=== PATIENT | male | born 1935 | race Caucasian/White ===

== ENCOUNTER 2017-12-03 14:03 | Emergency (ER) | payer MEDICARE ==
[~2017-12-03] VITALS: Ht 175.3 cm; Wt 81.6 kg
[~2017-12-03 14:03] MED LIST: CENTRUM COMPLE1 EACH PO; CRESTOR10 MG PO; FLAGYL250 MG PO; LANSOPRAZOLE30 MG; LEVAQUIN500 MG PO; LORTAB ELIXIR473 ML; MELOXICAM7.5 MG PO; METRONIDAZOLE500 MG PO; NEXIUM40 MG PO; PRESERVISION T1 EACH; TRIAMTERENE-HCTZ1 EA PO; ZITHROMAX500 MG PO
== END 2017-12-03 18:45 | disposition home or self-care (01) ==
LOC: ER 14:03
DX: L03.116 Cellulitis of left lower limb (principal); I10 Essential (primary) hypertension; I50.9 Heart failure, unspecified; K21.9 Gastro-esophageal reflux disease without esophagitis; Z87.19 Personal history of other diseases of the digestive system
CPT/HCPCS: 99282

== ENCOUNTER 2018-03-08 06:35 | Emergency (ER) | payer MEDICARE ==
[~2018-03-08] VITALS: Ht 175.3 cm; Wt 81.6 kg
[2018-03-08] MEDS ORDERED: PREDNISONE10 MG PO (07:22)
[2018-03-08] MEDS ORDERED: LEFLUNOMIDE10 MG PO (07:22)
[2018-03-08] MEDS ORDERED: MYRBETRIQ50 MG PO (07:22)
[2018-03-08] MEDS ORDERED: ZYRTEC10 M3 PO (07:22)
[2018-03-08] MEDS ORDERED: CELEBREX100 MG PO (07:22)
[2018-03-08] MEDS ORDERED: PANTOPRAZOLE SO40 MG PO (07:22)
[2018-03-08] MEDS ORDERED: ASPIR 8181 MG PO (07:22)
[2018-03-08] MEDS ORDERED: DEXAMETHASONE SOD PHOS 10 MG/1 ML VIAL IV ONE (07:30)
[2018-03-08 08:31] LABS: HEMATOCRIT 44.1 % (38.2-49.6); HEMOGLOBIN 14.8 g/dL (14.0-18.0); MEAN CORPUSCULAR HEMOGLOBIN 30.2 pg (28-32); MEAN CORPUSCULAR HGB CONC 33.6 g/dL (31-35); PLATELET COUNT 109 x10e3/uL (140-360); RED CELL DISTRIBUTION WIDTH 14.7 % (11.7-14.4)
[2018-03-08 08:52] LABS: ALANINE AMINOTRANSFERASE 81 IU/L (0-55); ALBUMIN 2.9 g/dL (3.5-5.0); ALBUMIN/GLOBULIN RATIO 1.1 (0.8-2.0); ALKALINE PHOSPHATASE 86 IU/L (40-150); ANION GAP 11.7 mmol/L (8-16); BLOOD UREA NITROGEN 20 mg/dL (7-26); BUN/CREATININE RATIO 25 (6-25); CALCIUM 8.4 mg/dL (8.4-10.2); CARBON DIOXIDE 24 mmol/L (22-29); CHLORIDE 107 mmol/L (98-107); CREATININE, SERUM 0.79 mg/dL (0.72-1.25); EST GLOMERULAR FILTRATION RATE > 60 ML/MIN (60-); GLUCOSE 83 mg/dL (74-118); PHOSPHORUS 2.7 MG/DL (2.3-4.7); POTASSIUM 3.7 mmol/L (3.5-5.1); SODIUM 139 mmol/L (136-145)
[2018-03-08 09:00] LABS: MAGNESIUM 1.6 MG/DL (1.3-2.1)
[2018-03-08 09:19] LABS: THYROID STIMULATING HORMONE 1.099 uIU/mL (0.350-4.940)
[2018-03-08 09:39] LABS: BILIRUBIN,URINE NEGATIVE (NEGATIVE); CLARITY,URINE CLEAR (CLEAR); COLOR,URINE YELLOW (YELLOW); EPITHELIAL CELLS,URINE FEW /LPF; KETONES,URINE NEGATIVE (NEGATIVE); LEUKOCYTE ESTERASE ,URINE NEGATIVE (NEGATIVE); MUCUS,URINE RARE (RARE); NITRITE,URINE NEGATIVE (NEGATIVE); PROTEIN,URINE DIPSTICK NEGATIVE (NEGATIVE); URINE UROBILINOGEN 0.2 mg/dL (0.2 - 1)
[2018-03-08 11:33] LABS: ANISOCYTOSIS SLIGHT; BAND NEUTROPHILS % (MANUAL) 1 %; EOSINOPHILS % (MANUAL) 3 % (0-7); LYMPHOCYTES % (MANUAL) 7 % (19-48); MONOCYTES % (MANUAL) 4 % (3.4-9.0); NEUTROPHILS % (MANUAL) 81 % (40-74); PLATELET ESTIMATE SLIGHTLY DECREASED; RBC MORPHOLOGY COMMENT NORMAL
[2018-03-08 11:34] LABS: PLATELET MORPHOLOGY COMMENT NORMAL
[2018-03-08 11:42] VITALS: BP 142/69
== END 2018-03-08 11:20 | disposition home or self-care (01) ==
LOC: ER 06:35
DX: M54.5 Low back pain (principal); I49.1 Atrial premature depolarization; I49.3 Ventricular premature depolarization; I44.4 Left anterior fascicular block; Z79.82 Long term (current) use of aspirin; Z79.52 Long term (current) use of systemic steroids; M48.061 Spinal stenosis, lumbar region without neurogenic claudication
CPT/HCPCS: 36415; 80053; 81001; 83735; 84100; 84443; 85007; 85027; 93005; 99284; J1100

== ENCOUNTER 2018-05-21 05:20 | Inpatient (IN) | payer MEDICARE ==
[2018-05-21] VITALS (7 sets, daily range): BP systolic 121–154; BP diastolic 60–88
[~2018-05-21] VITALS: Ht 175.3 cm; Wt 88.1 kg
[~2018-05-21 05:20] MED LIST changes: +ASPIR 8181 MG PO; +CELEBREX100 MG PO; +LEFLUNOMIDE10 MG PO; +MYRBETRIQ50 MG PO; +PANTOPRAZOLE SO40 MG PO; +PREDNISONE10 MG PO; +ZYRTEC10 M3 PO
[2018-05-21] MEDS ORDERED: PANTOPRAZOLE 40 MG 10ML VIAL IV STA (06:07)
[2018-05-21] MEDS ORDERED: MORPHINE SULFATE 2 MG/ML SYR IV STA (06:07)
[2018-05-21] MEDS ORDERED: ONDANSETRON HCL INJ 2 MG/ML VIAL IV STA (06:07)
[2018-05-21 06:35] LABS: BASOPHILS % 0.1 % (0.0-1.0); EOSINOPHILS # (AUTO) 0.1 (0.0-0.4); EOSINOPHILS % 0.4 % (0.0-6.0); HEMATOCRIT 47.2 % (38.2-49.6); HEMOGLOBIN 15.9 g/dL (14.0-18.0); LYMPHOCYTES # (AUTO) 1.2 (1.0-3.2); LYMPHOCYTES % 7.1 % (18.0-39.1); MEAN CORPUSCULAR HEMOGLOBIN 31.2 pg (28-32); MEAN CORPUSCULAR HGB CONC 33.7 g/dL (31-35); MEAN CORPUSCULAR VOLUME 92.5 fL (81-99); MONOCYTES # (AUTO) 0.7 (0.2-0.8); MONOCYTES % 4.3 % (4.4-11.3); NEUTROPHILS # (AUTO) 14.5 (2.1-6.9); NEUTROPHILS % 87.3 % (38.7-80.0); PLATELET COUNT 106 x10e3/uL (140-360); RED CELL DISTRIBUTION WIDTH 15.8 % (11.7-14.4)
[2018-05-21 06:40] LABS: BILIRUBIN,URINE NEGATIVE (NEGATIVE); CLARITY,URINE CLEAR (CLEAR); COLOR,URINE YELLOW (YELLOW); KETONES,URINE NEGATIVE (NEGATIVE); LEUKOCYTE ESTERASE ,URINE NEGATIVE (NEGATIVE); NITRITE,URINE NEGATIVE (NEGATIVE); PROTEIN,URINE DIPSTICK TRACE (NEGATIVE); URINE UROBILINOGEN 1 mg/dL (0.2 - 1)
[2018-05-21 06:42] LABS: INR 1.06
[2018-05-21 06:43] LABS: PARTIAL THROMBOPLASTIN TIME 26.4 seconds (23.8-35.5)
[2018-05-21 06:52] LABS: ALANINE AMINOTRANSFERASE 42 IU/L (0-55); ALKALINE PHOSPHATASE 52 IU/L (40-150); ANION GAP 9.6 mmol/L (8-16); BLOOD UREA NITROGEN 23 mg/dL (7-26); BUN/CREATININE RATIO 26 (6-25); CALCIUM 8.6 mg/dL (8.4-10.2); CARBON DIOXIDE 27 mmol/L (22-29); CHLORIDE 104 mmol/L (98-107); CREATINE KINASE 93 IU/L (30-200); EST GLOMERULAR FILTRATION RATE > 60 ML/MIN (60-); GLUCOSE 83 mg/dL (74-118); MAGNESIUM 1.9 MG/DL (1.3-2.1); POTASSIUM 3.6 mmol/L (3.5-5.1); SODIUM 137 mmol/L (136-145)
[2018-05-21 07:02] LABS: BACTERIA,URINE FEW /HPF; EPITHELIAL CELLS,URINE FEW /LPF; MUCUS,URINE FEW (RARE); RBC,URINE 0-5 /HPF (0-5); WBC,URINE (MAN) 0-5 /HPF (0-5)
[2018-05-21 07:06] LABS: THYROID STIMULATING HORMONE 1.172 uIU/mL (0.350-4.940)
--- NOTE | 2018-05-21 07:17 | Diagnostic Imaging Report ---
EXAM: SP LUMBAR AP LATERAL 2-3VWS DATE: 05/21/2018 6:07 AM INDICATION: \S\WEAKNESS \S\[id number] \S\40 COMPARISON: None FINDINGS: Vertebral heights maintained. Disc space narrowing L1-2, L2-3, L3-4 with vacuum disc phenomena and L2-3 and L3-4. Moderate endplate osteophytes and facet degenerative changes present. Trace retrolisthesis L1 on L2 and L2 on L3, likely degenerative. No distinct fracture. 2. Vascular filters overlying right lower quadrant. IMPRESSION: Advanced degenerative changes spine. Signed by: Dr. Joss Harris MD on 05/21/2018 7:13 AM
--- NOTE | 2018-05-21 07:17 | Diagnostic Imaging Report ---
EXAM: XR CHEST 1 VIEW DATE: 05/21/2018 6:07 AM INDICATION: Weakness COMPARISON: None FINDINGS: Lines and Tubes: None Heart and Mediastinum: Cardia mediastinal silhouette prominent. Lungs and Pleura: Moderate scattered airspace opacities, most notably in the right upper lobe and lung bases. No distinct pneumothorax. Bones and Soft Tissues: No acute findings. IMPRESSION: 1. Moderate scattered airspace opacities could represent multifocal pneumonia or edema with superimposed chronic lung changes possible. Signed by: Dr. Joss Harris MD on 05/21/2018 7:14 AM
[2018-05-21 07:38] LABS: ERYTHROCYTE SEDIMENTATION RATE 2 mm/hr (0-13)
[2018-05-21] MEDS ORDERED: VANCOMYCIN 1GM/NS 250 ML 250 ML IV ONE (08:30)
[2018-05-21] MEDS ORDERED: SODIUM CHLORIDE FLUSH 10 ML SYR INJ PRN (08:30)
[2018-05-21] MEDS ORDERED: ONDANSETRON HCL INJ 2 MG/ML VIAL IV PRN (08:30)
[2018-05-21] MEDS ORDERED: PIPER-TAZ 3.375 GM 50 ML IV ONE (09:00)
--- NOTE | 2018-05-21 09:26 | History and Physical ---
PRIMARY CARE PHYSICIAN: Dr. Eugene. CHIEF COMPLAINT: Leg weakness and right leg rash. HISTORY OF PRESENT ILLNESS: This is an 82-year-old man with a history of osteoarthritis who had a knee replacement, noted to have pain in bilateral lower legs, weakness with right leg redness which prompted his visit to the hospital. The patient states that he had fallen and his right knee was painful. He went to his doctor, treated and pain resolved, and now the pain is back with right leg redness. Denies any fever or chills or sweats. PAST MEDICAL HISTORY: GERD, osteoarthritis, chronic back pain, recurrent diverticulitis status post colonic resection. Fall with hip fracture in October 2017. Spinal stenosis. Sepsis. VRE bacteremia. PAST SURGICAL HISTORY: Partial colonic resection, spinal surgery, bilateral knee replacement, hip fracture, surgical management. ALLERGIES: PER ELECTRONIC MEDICAL RECORDS. FAMILY/SOCIAL HISTORY: The patient is . He has 3 children. No alcohol or illicits. He quit cigarettes in 1984. 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 MEDICATIONS: Per electronic medical records. REVIEW OF SYSTEMS: Denies any dizziness, chest pain. Denies any nausea or vomiting. Denies any headache. Denies any blurry vision. PHYSICAL EXAMINATION VITAL SIGNS: Have been reviewed. GENERAL APPEARANCE: A tired-appearing man resting in the bed. HEENT: Anicteric. Pupils responsive to light. No oral lesions. CARDIOVASCULAR: Normal S1 and S2. Regular rate and rhythm. No murmurs audible. LUNGS: Moderate breath sounds, ABDOMEN: Soft and nontender. Nondistended. EXTREMITIES: His right knee is warm, mildly erythematous. His right foreleg is erythematous, warm, tender, trace edema. Left leg appears normal. SKIN: Dry. PSYCHIATRIC: Normal affect. NEUROLOGIC: Alert and oriented x3. Moving all extremities. ASSESSMENT: An 82-year-old man. 1. Fall. 2. Physical deconditioning. 3. Right leg cellulitis. 4. Possible infection of the right knee. 5. Onychomycosis. 6. Right knee pain. 7. Gastroesophageal reflux disease. 8. Osteoarthritis. 9. Thrombocytopenia. PLAN: 1. Continue IV vancomycin and IV Zosyn. 2. Follow up cultures. 3. Follow up ultrasound of the right leg. 4. Monitor for infection of the right knee. 5. Obtain sed rate and CRP. 6. Avoid anticoagulation. Use SCDs. DISPOSITION: Physical therapy consultation and follow up cultures on the leg. Job#: [id number] SARAH
[2018-05-21] MEDS: TRAMADOL/APAP 37.5MG-325MG TAB PO PRN (11:50)
[2018-05-21] MEDS: VANCOMYCIN 1GM/NS 250 ML 250 ML IV SCH (16:00)
[2018-05-21] MEDS: PREDNISONE 10 MG TAB PO SCH (16:00)
[2018-05-21] MEDS: PIPER-TAZ 3.375 GM 50 ML IV SCH (16:45)
[2018-05-21] MEDS ORDERED: SODIUM CHLORIDE 0.9% 250ML 250 ML ONE (16:50)
--- NOTE | 2018-05-21 16:53 | Cardiology Report ---
DATE OF STUDY: May 21, 2018 DOPPLER SCAN OF THE RIGHT LEG VEINS The right leg veins were intact using the Duplex scanning method. The right leg veins were compressible.. There was no definite deep venous thrombosis. CONCLUSION: 1. No definite deep venous thrombosis seen on the right leg veins. 2. The left leg was not studied. Job#: [id number] GH cc:KAYLA RODARTE MD
[2018-05-21] MEDS ORDERED: MELOXICAM 7.5 MG TAB PO SCH (17:00)
[2018-05-22] VITALS (8 sets, daily range): BP systolic 121–154; BP diastolic 60–69
[2018-05-22] MEDS: PIPER-TAZ 3.375 GM 50 ML IV SCH ×5 (00:06→23:48)
[2018-05-22 07:24] LABS: BASOPHILS % 0.2 % (0.0-1.0); EOSINOPHILS # (AUTO) 0.1 (0.0-0.4); EOSINOPHILS % 0.6 % (0.0-6.0); HEMATOCRIT 42.5 % (38.2-49.6); HEMOGLOBIN 14.4 g/dL (14.0-18.0); LYMPHOCYTES # (AUTO) 0.6 (1.0-3.2); LYMPHOCYTES % 4.9 % (18.0-39.1); MEAN CORPUSCULAR HEMOGLOBIN 31.4 pg (28-32); MEAN CORPUSCULAR HGB CONC 33.9 g/dL (31-35); MEAN CORPUSCULAR VOLUME 92.6 fL (81-99); MONOCYTES # (AUTO) 0.6 (0.2-0.8); MONOCYTES % 4.3 % (4.4-11.3); NEUTROPHILS # (AUTO) 11.7 (2.1-6.9); NEUTROPHILS % 89.1 % (38.7-80.0); PLATELET COUNT 91 x10e3/uL (140-360); RED BLOOD COUNT 4.59 x10e6/uL (4.3-5.7); RED CELL DISTRIBUTION WIDTH 15.9 % (11.7-14.4)
[2018-05-22] MEDS ORDERED: PANTOPRAZOLE SOD 40 MG TABEC PO SCH (07:30)
[2018-05-22 07:49] LABS: ALANINE AMINOTRANSFERASE 32 IU/L (0-55); ALBUMIN 2.5 g/dL (3.5-5.0); ALBUMIN/GLOBULIN RATIO 0.9 (0.8-2.0); ALKALINE PHOSPHATASE 48 IU/L (40-150); ANION GAP 10.4 mmol/L (8-16); BLOOD UREA NITROGEN 20 mg/dL (7-26); BUN/CREATININE RATIO 26 (6-25); CALCIUM 8.3 mg/dL (8.4-10.2); CARBON DIOXIDE 26 mmol/L (22-29); CHLORIDE 106 mmol/L (98-107); CREATININE, SERUM 0.78 mg/dL (0.72-1.25); EST GLOMERULAR FILTRATION RATE > 60 ML/MIN (60-); GLUCOSE 97 mg/dL (74-118); POTASSIUM 4.4 mmol/L (3.5-5.1); SODIUM 138 mmol/L (136-145)
[2018-05-22] MEDS ORDERED: PREDNISONE 10 MG TAB PO SCH (09:00)
[2018-05-22] MEDS: PANTOPRAZOLE SOD 40 MG TABEC PO SCH (09:03)
[2018-05-22] MEDS: FLUTICASONE PROPIONATE NASAL SPRAY NS SCH (09:03)
[2018-05-22] MEDS: LEFLUNOMIDE 10 MG PO SCH (09:04)
[2018-05-22] MEDS: MULTIVITAMINS/MINERALS TAB PO SCH (09:04)
[2018-05-22] MEDS: LORATADINE 10 MG TAB PO SCH (09:04)
[2018-05-22] MEDS: PREDNISONE 10 MG TAB PO SCH (09:04)
[2018-05-22] MEDS: ASPIRIN 81 MG CHEW TAB PO SCH (09:04)
[2018-05-22] MEDS: CELECOXIB 100 MG CAP PO SCH (09:04)
[2018-05-22] MEDS: MIRABEGRON 50 MG PO SCH (09:04)
[2018-05-22] MEDS: VANCOMYCIN 1GM/NS 250 ML 250 ML IV SCH (15:24)
--- NOTE | 2018-05-22 20:35 | Progress Note ---
DATE: May 22, 2018 PROGRESS NOTE TIME: 1915 Overnight, no acute events. REVIEW OF SYSTEMS: Patient denies chest pain or shortness of breath. Denies nausea or vomiting. Denies headache. Denies dizziness or blurry vision. Patient does report some ache to right lower extremity. PHYSICAL EXAMINATION VITAL SIGNS: T 98.8, P 54, respiration 16, BP 125/69, pulse ox 95% on 2 L nasal cannula. GENERAL APPEARANCE: This is a pleasant tired-appearing man, resting supine in bed. HEAD, EYES, EARS, NOSE, THROAT: Normocephalic. PERRLA. noted. No oral lesions. Oral mucosa moist and intact with no sinus tenderness. Nares patent. No JVD. CV: S1 and S2 appreciated with very slight systolic murmur present. Regular rate and rhythm. LUNGS: Bilateral breath sounds clear in all beatty with moderate breath sounds. ABDOMEN: Soft and nontender. Nondistended. No pain to deep or light palpation. EXTREMITIES: Right knee warm, erythematous with positive ballottement. Right chow area is erythematous, warm, tender, trace edema with trace maculopapular lesions times 3 or 4. Left leg within normal limits. Right knee tender to touch. SKIN: Dry. PSYCHIATRIC: Normal affect. NEUROLOGIC: A and O times 3. Moves all extremities and follows commands with gross motor skills intact. ASSESSMENT AND PLAN: This is an 82-year-old man with 1. Fall related to physical deconditioning. Physical therapy consulted. 2. Right leg cellulitis. Continue intravenous vancomycin and Zosyn. 3. Blood cultures are negative. Urine culture with mix jesus and fauna 4. Possible infection of the right knee. 5. Continue to monitor considering positive ballottement. 6. Onychomycosis. 7. Right knee pain. P.r.n. pain management. 8. Gastroesophageal reflux disease. Protonix. 9. Osteoarthritis. Continue with steroid use at this time, Celebrex. 10. Thrombocytopenia. Platelets continued to decline at 91 this day. 11. Prophylaxis. Sequential compression devices and Protonix. 12. Disposition. Physical therapy consultation, and erythrocyte sedimentation rate noted to be decreased in the presence of elevated C-reactive protein with no clot noted on vascular exam. The patient reported escalating shortness of breath 7-8 months prior to this episode of fall and consider heart failure issues in light of elevated B-type natriuretic peptide as possibility. Continue to monitor right knee joint for possible infection. Dictated By: Carlos Bruno NP Job#: [id number] CQ
[2018-05-23] VITALS (8 sets, daily range): BP systolic 131–155; BP diastolic 66–86
[2018-05-23] MEDS: PIPER-TAZ 3.375 GM 50 ML IV SCH ×4 (05:59→23:35)
[2018-05-23 06:49] LABS: BASOPHILS % 0.2 % (0.0-1.0); EOSINOPHILS # (AUTO) 0.1 (0.0-0.4); EOSINOPHILS % 1.1 % (0.0-6.0); HEMATOCRIT 42.6 % (38.2-49.6); HEMOGLOBIN 14.4 g/dL (14.0-18.0); LYMPHOCYTES # (AUTO) 0.7 (1.0-3.2); LYMPHOCYTES % 6.2 % (18.0-39.1); MEAN CORPUSCULAR HEMOGLOBIN 30.9 pg (28-32); MEAN CORPUSCULAR HGB CONC 33.8 g/dL (31-35); MEAN CORPUSCULAR VOLUME 91.4 fL (81-99); MONOCYTES # (AUTO) 0.7 (0.2-0.8); MONOCYTES % 5.9 % (4.4-11.3); NEUTROPHILS % 85.9 % (38.7-80.0); PLATELET COUNT 105 x10e3/uL (140-360); RED BLOOD COUNT 4.66 x10e6/uL (4.3-5.7); RED CELL DISTRIBUTION WIDTH 15.9 % (11.7-14.4)
[2018-05-23] MEDS: CELECOXIB 100 MG CAP PO SCH (09:00)
[2018-05-23] MEDS: ASPIRIN 81 MG CHEW TAB PO SCH (09:12)
[2018-05-23] MEDS: MIRABEGRON 50 MG PO SCH (09:12)
[2018-05-23] MEDS: PANTOPRAZOLE SOD 40 MG TABEC PO SCH (09:12)
[2018-05-23] MEDS: LEFLUNOMIDE 10 MG PO SCH (09:12)
[2018-05-23] MEDS: FLUTICASONE PROPIONATE NASAL SPRAY NS SCH (09:12)
[2018-05-23] MEDS: LORATADINE 10 MG TAB PO SCH (09:12)
[2018-05-23] MEDS: MULTIVITAMINS/MINERALS TAB PO SCH (09:13)
[2018-05-23] MEDS: PREDNISONE 10 MG TAB PO SCH (09:13)
[2018-05-23] MEDS: VANCOMYCIN 1GM/NS 250 ML 250 ML IV SCH (16:28)
[2018-05-23] MEDS: TRAMADOL/APAP 37.5MG-325MG TAB PO PRN (17:16)
[2018-05-24] VITALS: BP 171/84
[2018-05-24 04:00] VITALS: BP 170/84
[2018-05-24] MEDS: PIPER-TAZ 3.375 GM 50 ML IV SCH (05:36)
[2018-05-24 07:10] VITALS: BP 178/85
[2018-05-24 07:47] VITALS: BP 178/85
[2018-05-24] MEDS ORDERED: LEVAQUIN500 MG PO (08:30)
[2018-05-24] MEDS ORDERED: MINOCYCLINE HC100 MG PEG (08:30)
--- NOTE | 2018-05-24 08:55 | Progress Note ---
DATE: May 23, 2018 TIME: 7 a.m. OVERNIGHT: No events. REVIEW OF SYSTEMS: Denies any dizziness. PHYSICAL EXAMINATION VITAL SIGNS: Reviewed. GENERAL: A tired-appearing man resting in bed. HEENT: Anicteric. CARDIOVASCULAR: Normal S1 and S2. LUNGS: Moderate breath sounds. ABDOMEN: Soft, nontender and nondistended. EXTREMITIES: No edema. SKIN: Dry. PSYCHIATRIC: Normal affect. LABS: Reviewed. MEDICATIONS: Reviewed. ASSESSMENT: An 82-year-old man with: 1. Fall. 2. Physical deconditioning. 3. Right leg cellulitis. 4. Onychomycosis. 5. Right knee pain. 6. Gastroesophageal reflux disease. 7. Osteoarthritis. 8. Thrombocytopenia. PLAN 1. Continue IV antibiotics. 2. Follow up cultures. 3. Continue physical therapy. 4. Discharge planning. Job#: [id number] MN
--- NOTE | 2018-05-24 08:57 | Discharge Summary ---
PRINCIPAL DIAGNOSES 1. Right leg cellulitis. 2. Onychomycosis. 3. Physical deconditioning. 4. Gastroesophageal reflux disease. 5. Thrombocytopenia. SECONDARY DIAGNOSIS: Gastroesophageal reflux disease. CHIEF COMPLAINT: Leg weakness, right leg. HISTORY OF PRESENT ILLNESS: This is an 82-year-old man with right leg rash and leg weakness. For further details of the history of present illness, please refer to the H\T\P. HOSPITAL COURSE: The patient was found to have right leg cellulitis. Ultrasound was negative for DVT. He had onychomycosis. Treated with vancomycin and Zosyn. Did well. Rash improved. He received physical therapy. He had thrombocytopenia, which was monitored. The patient is doing better and currently appropriate for discharge. All cultures remain negative. DISCHARGE MEDICATIONS: Per electronic medical record and include minocycline and Levaquin. FOLLOWUP: With primary care doctor in 1 week. CONDITION ON DISCHARGE: Stable and improving. DISCHARGE LOCATION: Home. KAYLA RODARTE MD Job#: [id number]
[2018-05-24] MEDS: CELECOXIB 100 MG CAP PO SCH (09:00)
[2018-05-24] MEDS: FLUTICASONE PROPIONATE NASAL SPRAY NS SCH (09:06)
[2018-05-24] MEDS: MULTIVITAMINS/MINERALS TAB PO SCH (09:06)
[2018-05-24] MEDS: MIRABEGRON 50 MG PO SCH (09:06)
[2018-05-24] MEDS: PANTOPRAZOLE SOD 40 MG TABEC PO SCH (09:06)
[2018-05-24] MEDS: LORATADINE 10 MG TAB PO SCH (09:06)
[2018-05-24] MEDS: PREDNISONE 10 MG TAB PO SCH (09:06)
[2018-05-24] MEDS: LEFLUNOMIDE 10 MG PO SCH (09:06)
[2018-05-24] MEDS: ASPIRIN 81 MG CHEW TAB PO SCH (09:06)
[2018-05-24] MEDS ORDERED: HYDRALAZINE HCL25 MG PO (09:08)
[2018-05-24] MEDS ORDERED: HYDRALAZINE HCL 25 MG TAB PO SCH (09:15)
[2018-05-24 10:50] VITALS: BP 135/67
== END 2018-05-24 10:59 | disposition home health service (06) | DRG 603 ==
LOC: ER 05:20 → ERHOLD 08:28 → MED/SURG3 09:35
PROVIDERS: ADMIT Internal Medicine; ATTEND Internal Medicine
DX: L03.115 Cellulitis of right lower limb (principal); K21.9 Gastro-esophageal reflux disease without esophagitis; M19.90 Unspecified osteoarthritis, unspecified site; D69.6 Thrombocytopenia, unspecified; B35.1 Tinea unguium; J44.9 Chronic obstructive pulmonary disease, unspecified; M54.9 Dorsalgia, unspecified; M25.561 Pain in right knee; R53.81 Other malaise; G89.29 Other chronic pain; W19.XXXA Unspecified fall, initial encounter; Y93.9 Activity, unspecified; Y92.009 Unspecified place in unspecified non-institutional (private) residence as the place of occurrence of the external cause
CPT/HCPCS: 36415; 71045; 72100; 80053; 81001; 82550; 82553; 83605; 83735; 83880; 84100; 84443; 84484; 85025; 85610; 85651; 85730; 86140; 87040; 87086; 93005; 93971; 99284; J2270; J2405; J2543; J3370; J7050

== ENCOUNTER 2018-08-25 17:45 | Inpatient (IN) | payer MEDICARE ==
[~2018-08-25] VITALS: Ht 175.3 cm; Wt 77.6 kg
[~2018-08-25 17:45] MED LIST changes: +HYDRALAZINE HCL25 MG PO; +MINOCYCLINE HC100 MG PEG
--- NOTE | 2018-08-25 19:04 | Diagnostic Imaging Report ---
Examination: Single AP view of the chest. COMPARISON: AP chest 05/21/2018 INDICATION: Abdominal pain, weakness, fever IMPRESSION: 1. Lines and Tubes: None 2. Lungs are hypoinflated. Bilateral scattered airspace opacities, right greater than left, similar to prior exam, which may reflect multifocal pneumonia or pulmonary edema superimposed on chronic lung changes. 3. Enlarged cardiac silhouette Central pulmonary venous congestion 4. No acute bony abnormalities. Signed by: Dr. Frank Virgen M.D. on 08/25/2018 7:01 PM
[2018-08-25 19:19] LABS: BASOPHILS % 0.3 % (0.0-1.0); HEMATOCRIT 49.6 % (38.2-49.6); HEMOGLOBIN 16.7 g/dL (14.0-18.0); LYMPHOCYTES # (AUTO) 0.2 (1.0-3.2); MEAN CORPUSCULAR HEMOGLOBIN 32.2 pg (28-32); MEAN CORPUSCULAR HGB CONC 33.7 g/dL (31-35); MEAN CORPUSCULAR VOLUME 95.8 fL (81-99); MONOCYTES # (AUTO) 0.3 (0.2-0.8); MONOCYTES % 2.3 % (4.4-11.3); NEUTROPHILS # (AUTO) 10.9 (2.1-6.9); NEUTROPHILS % 94.8 % (38.7-80.0); PLATELET COUNT 128 x10e3/uL (140-360); RED BLOOD COUNT 5.18 x10e6/uL (4.3-5.7); RED CELL DISTRIBUTION WIDTH 14.7 % (11.7-14.4)
[2018-08-25 19:31] LABS: CLARITY,URINE SL CLOUDY (CLEAR); COLOR,URINE YELLOW (YELLOW); KETONES,URINE TRACE (NEGATIVE); LEUKOCYTE ESTERASE ,URINE TRACE (NEGATIVE); NITRITE,URINE NEGATIVE (NEGATIVE); PROTEIN,URINE DIPSTICK TRACE (NEGATIVE); URINE UROBILINOGEN 4 mg/dL (0.2 - 1)
[2018-08-25 19:32] LABS: BILIRUBIN,URINE 2+ (NEGATIVE)
[2018-08-25 19:34] LABS: ALANINE AMINOTRANSFERASE 504 IU/L (0-55); ALBUMIN 3.2 g/dL (3.5-5.0); ALKALINE PHOSPHATASE 221 IU/L (40-150); ANION GAP 16.6 mmol/L (8-16); BLOOD UREA NITROGEN 28 mg/dL (7-26); BUN/CREATININE RATIO 30 (6-25); CALCIUM 8.8 mg/dL (8.4-10.2); CARBON DIOXIDE 25 mmol/L (22-29); CHLORIDE 103 mmol/L (98-107); CREATININE, SERUM 0.92 mg/dL (0.72-1.25); EST GLOMERULAR FILTRATION RATE > 60 ML/MIN (60-); GLUCOSE 101 mg/dL (74-118); POTASSIUM 3.6 mmol/L (3.5-5.1); SODIUM 141 mmol/L (136-145)
[2018-08-25] MEDS ORDERED: NORCO 5-325 TA1 EACH PO (19:38)
[2018-08-25] MEDS ORDERED: BACTRIM DS TAB1 EACH PO (19:38)
[2018-08-25] MEDS ORDERED: CEFEPIME HCL 1 GM VIAL IV SCH (19:45)
[2018-08-25] MEDS ORDERED: VANCOMYCIN HCL 1GM/NS 250 ML BAG IV SCH (19:45)
[2018-08-25 19:52] LABS: AMORPHOUS SEDIMENT,URINE FEW (FEW); BACTERIA,URINE FEW /HPF; EPITHELIAL CELLS,URINE MODERATE /LPF; MUCUS,URINE MODERATE (RARE); RBC,URINE 0-5 /HPF (0-5); TRANSITIONAL EPI CELLS,URINE MODERATE; WBC,URINE (MAN) 0-5 /HPF (0-5)
[2018-08-25] MEDS ORDERED: VANCOMYCIN 1GM/NS 250 ML 250 ML IV SCH (20:00)
[2018-08-25] MEDS: CEFEPIME HCL 1 GM VIAL IV SCH (20:09)
[2018-08-25 20:29] LABS: CREATINE KINASE MB 1.5 ng/mL (0-5.0)
[2018-08-25 21:00] VITALS: BP 130/81
[2018-08-25] MEDS ORDERED: IBUPROFEN 600 MG TAB ONE (21:09)
[2018-08-25] MEDS ORDERED: ACETAMINOPHEN 325 MG TAB PO ONE (21:15)
[2018-08-25] MEDS ORDERED: IBUPROFEN 600 MG TAB PO STA (21:17)
[2018-08-25] MEDS ORDERED: IBUPROFEN 600 MG TAB PO NR (21:30)
[2018-08-25 21:40] VITALS: BP 130/81
[2018-08-25] MEDS ORDERED: HYDROCODONE/APAP 5MG-325MG TAB PO PRN (21:45)
[2018-08-25 23:04] VITALS: BP 130/81
--- NOTE | 2018-08-25 23:32 | Diagnostic Imaging Report ---
EXAM: CT CHEST WO INDICATION: Abnormal chest x-ray, weakness, chills, evaluate for pneumonia COMPARISON: None TECHNIQUE: Multidetector CT scanning of the chest was performed. Coronal and sagittal multiplanar reformations were obtained. Dose modulation, iterative reconstruction, and/or weight based adjustment of the mA/kV was utilized to reduce the radiation dose to as low as reasonably achievable. Routine protocol performed. IV Contrast: None CTDIvol has been reviewed. It is below the limits set by the Radiation Protocol Committee (RPC). FINDINGS: LUNGS AND AIRWAYS: The trachea and major bronchi are patent. Bilateral peripheral reticulation and honeycombing, right greater than left. Bilateral traction bronchiectasis. Well-circumscribed round 1.3 cm nodule in the right lung base containing fat. PLEURA: No effusions or pneumothorax. HEART, MEDIASTINUM, VESSELS: The heart is within normal size limits. No abnormal pericardial effusion. Calcifications of the coronary arteries and thoracic aorta. No mediastinal mass or lymphadenopathy. UPPER ABDOMEN: Subcentimeter cyst left lobe of the liver. Pancreatic atrophy. MUSCULOSKELETAL: No acute findings. 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 Fat-containing 1.3 cm nodule in the right lung base could represent a hamartoma. Signed by: Dr. Parul Smith M.D. on 08/25/2018 11:29 PM
[2018-08-25] MEDS: GUAIFENESIN/DEXTROMETHORPHAN LIQD 5 ML UDC NG SCH (23:40)
[2018-08-25] MEDS: BENZONATATE 100 MG CAP PO SCH (23:40)
[2018-08-26] VITALS (8 sets, daily range): BP systolic 102–160; BP diastolic 62–93
--- NOTE | 2018-08-26 00:10 | History and Physical ---
PRIMARY CARE PHYSICIAN: Dr. Eugene ESCALATOR INSTALLER: Dr. Alexandre Kimble CHIEF COMPLAINT: Chills, increased oxygen needs, leg swelling, and weakness. HISTORY OF PRESENT ILLNESS: This is an 83-year-old man with a history of pulmonary fibrosis, who is followed by Dr. Kimble. Patient recently saw Dr. Kimble about 3 days ago. At that time, he had some leg swelling; and x-ray, Doppler of the legs, and labs were ordered, but patient developed rigors and increased muscle weakness and increased oxygen needs during the daytime, therefore he was brought to the hospital. Here, he was found to have pulmonary infiltrates, he is admitted for further evaluation and management. He denies any chest pain. He denies any cough. PAST MEDICAL HISTORY: Pulmonary fibrosis, GERD, osteoarthritis, chronic back pain, recurrent diverticulitis, status post colonic resection, fall with hip fracture in October 2017, spinal stenosis, sepsis, VRE bacteremia, fall, physical deconditioning, right leg cellulitis, onychomycosis, and thrombocytopenia. PAST SURGICAL HISTORY: Partial colon resection, spinal surgery, bilateral total knee replacement, hip fracture status post surgical management. ALLERGIES: PER ELECTRONIC MEDICAL RECORD. FAMILY/SOCIAL HISTORY: Patient is . He has 3 children. No alcohol, illicits, or cigarettes. He quit cigarettes in 1984. 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 MEDICATIONS: Per electronic medical record. REVIEW OF SYSTEMS: Denies chest pain. Denies any fever. Denies any nausea, vomiting, diarrhea. Denies any back and leg pain. PHYSICAL EXAMINATION: VITAL SIGNS: Have been reviewed. GENERAL APPEARANCE: Tired-appearing man resting in bed. HEENT: Anicteric. Pupils respond to light. No oral lesions. CARDIOVASCULAR: Normal S1 and S2. LUNGS: He has fine crackles, bilateral bases. No wheezing. He has moderate breath sounds. ABDOMEN: Soft, nontender, nondistended. EXTREMITIES: He has hyperpigmentation of the bilateral forelegs. He has trace edema bilaterally. NEUROLOGICAL: He is alert and oriented x3. Moves all extremities. SKIN: Dry. PSYCHIATRIC: Normal affect. LABS: Reviewed. MEDICATIONS: Reviewed. ASSESSMENT: This is an 83-year-old man. 1. Acute transaminitis. 2. Urinary tract infection. 3. Multifocal pneumonia. 4. Pulmonary edema. 5. Physical deconditioning. 6. Sepsis with sinus tachycardia, leukocytosis, and lactic acidosis. 7. Peripheral edema. 8. Thrombocytopenia. PLAN: 1. Will continue vancomycin and cefepime for broad-spectrum antibiotic coverage in the setting of sepsis. 2. Will add loratadine, antihistamine, antitussive, and neb treatments. 3. Consult Dr. Kimble. 4. Obtain 2D echocardiogram. 5. Obtain CT scan of the chest with contrast to further evaluate. 6. Obtain acute hepatitis panel and recheck LFTs in the morning. 7. Follow up cultures. 8. Physical therapy consultation. 9. Will obtain ultrasound of the liver to evaluate the patient in the setting of acute transaminitis. 10. Will use SCD for DVT prophylaxis in the setting of thrombocytopenia. I have discussed case with patient and and other family members at bedside. Job#: [id number]
[2018-08-26] MEDS: ALBUTEROL/IPRATROPIUM 3 ML NEB NEB PRN (00:30)
[2018-08-26 04:40] LABS: BASOPHILS % 0.2 % (0.0-1.0); EOSINOPHILS % 0.2 % (0.0-6.0); HEMATOCRIT 42.2 % (38.2-49.6); HEMOGLOBIN 14.2 g/dL (14.0-18.0); LYMPHOCYTES # (AUTO) 0.9 (1.0-3.2); LYMPHOCYTES % 6.3 % (18.0-39.1); MEAN CORPUSCULAR HEMOGLOBIN 32.1 pg (28-32); MEAN CORPUSCULAR HGB CONC 33.6 g/dL (31-35); MEAN CORPUSCULAR VOLUME 95.5 fL (81-99); MONOCYTES # (AUTO) 0.6 (0.2-0.8); MONOCYTES % 4.2 % (4.4-11.3); NEUTROPHILS % 88.6 % (38.7-80.0); PLATELET COUNT 102 x10e3/uL (140-360); RED BLOOD COUNT 4.42 x10e6/uL (4.3-5.7); RED CELL DISTRIBUTION WIDTH 14.7 % (11.7-14.4)
[2018-08-26 05:05] LABS: ALANINE AMINOTRANSFERASE 710 IU/L (0-55); ALBUMIN 2.4 g/dL (3.5-5.0); ALKALINE PHOSPHATASE 192 IU/L (40-150); ANION GAP 15.5 mmol/L (8-16); BILIRUBIN,DIRECT 3.8 mg/dL (0.0-0.5); BLOOD UREA NITROGEN 28 mg/dL (7-26); BUN/CREATININE RATIO 31 (6-25); CALCIUM 7.9 mg/dL (8.4-10.2); CARBON DIOXIDE 22 mmol/L (22-29); CHLORIDE 107 mmol/L (98-107); CREATINE KINASE 78 IU/L (30-200); CREATININE, SERUM 0.89 mg/dL (0.72-1.25); EST GLOMERULAR FILTRATION RATE > 60 ML/MIN (60-); GLUCOSE 125 mg/dL (74-118); POTASSIUM 3.5 mmol/L (3.5-5.1); SODIUM 141 mmol/L (136-145)
[2018-08-26] MEDS: GUAIFENESIN/DEXTROMETHORPHAN LIQD 5 ML UDC NG SCH ×3 (05:22→21:22)
[2018-08-26] MEDS: PANTOPRAZOLE SOD 40 MG TABEC PO SCH (08:14)
[2018-08-26] MEDS: BENZONATATE 100 MG CAP PO SCH ×3 (08:14→21:22)
[2018-08-26] MEDS: CEFEPIME HCL 1 GM VIAL IV SCH ×2 (08:14→21:22)
[2018-08-26] MEDS: LORATADINE 10 MG TAB PO SCH (08:14)
[2018-08-26] MEDS: ASPIRIN 81 MG CHEW TAB PO SCH (08:14)
[2018-08-26] MEDS: (Mirabegron (Myrbetriq) 50 MG) PO SCH (08:15)
--- NOTE | 2018-08-26 08:27 | Diagnostic Imaging Report ---
PROCEDURE:US ABDOMEN LIMITED COMPARISON:None. INDICATIONS:Abdominal pain TECHNIQUE: Lewis-scale and color Doppler transverse and longitudinal images of the right upper quadrant of the abdomen were obtained. FINDINGS: Liver: Measures 13.1 cm in right mid-clavicular line. Increased echogenicity. No masses. Main portal vein: Measures 0.8 cm with normal forward flow Gallbladder: Enlarged with stones and sludge. Gallbladder wall measures 5 mm. Common Bile Duct: Prominent measuring 0.7 cm Sonographic Mcfarland's sign: Negative Right kidney: Measures 9.3 x 5.4 x 4.9 cm. Normal echogenicity. No solid masses or hydronephrosis. Pancreas: Not visualized well Inferior vena cava: Not visualized well Aorta: Not visualized well Ascites: None in the right upper quadrant of the abdomen. IMPRESSION: 1. Stones and sludge within a prominent gallbladder. 2. Common bile duct at the upper limits of normal in size. Marquis Wells D.O. Dictated by: Marquis Wells D.O. on 08/26/2018 at 8:34 Electronically approved by: Marquis Wells D.O. on 08/26/2018 at 8:34
[2018-08-26 12:39] LABS: CREATINE KINASE MB 2.3 ng/mL (0-5.0)
[2018-08-26] MEDS ORDERED: SUCCINYLCHOLINE 200 MG/10 ML SYR IV ONE (13:37)
[2018-08-26] MEDS ORDERED: ROCURONIUM BROMIDE 10 MG/ML 5ML VIAL IV ONE (13:37)
[2018-08-26] MEDS ORDERED: GLYCOPYRROLATE INJ 1MG/ 5 ML SYR IV ONE (13:37)
[2018-08-26] MEDS ORDERED: HYDROCORTISONE SOD SUCCINATE 100 MG VIAL IV ONE (13:37)
[2018-08-26] MEDS ORDERED: ETOMIDATE 2 MG/ML 10 ML INJ IV ONE (13:37)
[2018-08-26] MEDS ORDERED: SEVOFLURANE INHAL SOLN 250 ML PEN BTL INH ONE (13:37)
[2018-08-26] MEDS ORDERED: LIDOCAINE HCL 2% LOCAL INJ 5 ML SDV VIAL INJ ONE (13:37)
[2018-08-26] MEDS ORDERED: PROPOFOL IV EMULSION 10 MG/ML 20 ML VIAL IV ONE (13:37)
[2018-08-26] MEDS: ONDANSETRON HCL INJ 2 MG/ML VIAL IV PRN (15:06)
[2018-08-26] MEDS: FLUTICASONE PROPIONATE NASAL SPRAY NS PRN (15:57)
--- NOTE | 2018-08-26 16:59 | Consultation ---
DATE OF CONSULTATION: August 26, 2018 CHIEF COMPLAINT: Abdominal pain. HISTORY OF PRESENT ILLNESS: The patient is an 83-year-old male admitted with pulmonary fibrosis and pneumonia and pulmonary edema. The patient has developed epigastric abdominal pain for 1 day with nausea and vomiting. PAST MEDICAL HISTORY: Positive for GERD, pulmonary fibrosis, arthritis, spinal stenosis, leg cellulitis, and thrombocytopenia. SURGICAL HISTORY: Positive for colon resection, spinal surgery, knee replacement bilaterally, and hip fractured. ALLERGIES: PATIENT HAS AN ALLERGIC REACTION TO IODINE. REVIEW OF SYSTEMS: No chest pain. Mild dyspnea. Deny fever or chills. SOCIAL HABITS: Patient is a former smoker. Deny alcohol abuse. PHYSICAL EXAMINATION VITAL SIGNS: Stable. He is afebrile. GENERAL: The patient is awake, alert, in moderate discomfort. HEENT: Sclerae anicteric. NECK: Supple. LUNGS: Asymmetric breath sound. No rhonchi. HEART: Regular rate and rhythm. ABDOMEN: Soft with some mild guarding in the right upper quadrant without rebound. EXTREMITIES: Edema at the ankle. The patient's white cell count is 14,000 with hemoglobin of 14, platelet count 102. Creatinine of 0.9 and liver function test elevated at bilirubin 4.9 and alkaline phosphatase of 192 and transaminase of 700. INR of 1.0. Ultrasound of gallbladder has shown stone with sludge with a bile duct at upper limit of normal at 7 mm. ASSESSMENT: Cholelithiasis and probable cholecystitis with bile duct stone. PLAN: MRCP to rule out bile duct stone. We will follow patient with you. Job#: [id number] AYAN
--- NOTE | 2018-08-26 17:09 | Consultation ---
DATE OF CONSULTATION: August 26, 2018 PULMONARY CONSULTATION PATIENT LOCATION: [facility] bed 187-1. ATTENDING PHYSICIAN: Dr. Tomasz Mata. REASON FOR CONSULTATION: Pneumonia. Mr. Mota is an 83-year-old man well known to me. He has interstitial lung disease and chronic hypoxemic respiratory failure. He was last seen in the office this past week on August 23 for followup. He had been doing well. He was there for pulmonary functions, showing total lung capacity of 3.45 liters, which is decreased approximately 12%, with stable DLCO. At that time, he did still have dyspnea with exertion. He still had some panting with activity. He has been having some falls and bilateral leg swelling more so than previously. Overall, he had been doing okay. He came here to the hospital secondary to increased abdominal pain mostly in the right upper quadrant, some chills, generalized weakness. He denies cough or change in sputum. He has no chest pain or palpitations. He still has some leg swelling. 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 He also has polycythemia. PAST SURGICAL HISTORY: Left knee replacement, right knee replacement. He has had carpal tunnel surgery, spinal stenosis surgery, colon surgery, and repair of a right hip fracture. SOCIAL HISTORY: He drinks alcohol socially. He is . He used to smoke cigarettes but has not smoked since 1984. 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 OUTPATIENT MEDICATIONS: Include Flonase, prednisone, and flutamide. PHYSICAL EXAMINATION VITAL SIGNS: He is afebrile. His heart rate is 76, blood pressure 142/75. He is 96% on about 2.75 liters nasal cannula. GENERAL APPEARANCE: This is a well-appearing man. He looks about the same as usual when he comes in, although he does have an emesis bag in front of him. HEENT: Head is normocephalic and atraumatic. Pupils are round and reactive. Mucous membranes are moist. NECK: Supple. Trachea is midline. HEART: Regular rate and rhythm. CHEST: Velcro rales bilaterally. ABDOMEN: Although soft, it is tender in the mid epigastric to right upper quadrant region. There is no rebound. There is no guarding. EXTREMITIES: No cyanosis. He does have some mild clubbing. He does have some edema and hyperpigmentation with stasis dermatitis. DATA: He has a blood culture with gram-negative rods already. His white count when he came in was 14,000. It is down to 11,000. His hemoglobin is 16 today. Platelets are 128,000. Electrolytes are unremarkable. His BUN and creatinine are 28 and about 0.9. His LFTs were markedly elevated with a bilirubin of 4.9, which is 3.8 direct. AST and ALT are in the 700s. They are starting to come down. His alkaline phosphatase is 200. Albumin is mildly decreased at 2.4. Hepatitis antibodies are pending. IMAGING: Chest CT shows UIP without further infiltrates. 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 An abdominal ultrasound shows an enlarged gallbladder with stones and sludge. The bile duct is at upper limits of normal. Chest x-ray shows hypoinflated lungs with interstitial lung disease and borderline cardiomegaly. ASSESSMENT 1. Interstitial lung disease, probable usual interstitial pneumonia, stable. 2. Chronic hypoxemic respiratory failure at baseline. 3. Gram-negative sepsis, likely secondary to cholecystitis. 4. Cholecystitis, acute. 5. Secondary polycythemia. 6. Increased liver function tests. 7. Hypertension. RECOMMENDATIONS AND PLAN: At this point, continue broad-spectrum antibiotics with cefepime and vancomycin although the vancomycin can probably be discontinued given that the cefepime should cover most gram negatives. He will need a surgical evaluation and likely a cholecystectomy early in the week. He does not appear to have acute pneumonia. These are chronic infiltrates and chronic changes on his CT. He is having nausea and recommend adding some maintenance fluids. JG KENNEDY MD Job#: [id number]
[2018-08-26] MEDS: SODIUM CHLORIDE 0.9% 1000ML 1,000 ML IV SCH (17:17)
[2018-08-26] MEDS ORDERED: HYDROMORPHONE 1MG/1ML INJ IV PRN (17:30)
[2018-08-26] MEDS ORDERED: HYDROCODONE/APAP 5MG-325MG TAB PO PRN (17:45)
[2018-08-26] MEDS: HYDROMORPHONE 2MG/ML 2 MG/ML ML IV PRN ×2 (18:51→22:24)
[2018-08-26] MEDS ORDERED: SODIUM CHLORIDE 0.9% 50ML 50 ML ONE (19:37)
[2018-08-26] MEDS ORDERED: GADOBENATE DIMEGLUMINE 1 ML IV ONE (19:37)
[2018-08-26] MEDS: VANCOMYCIN HCL 1.25 GM in SODIUM CHLORIDE 0.9% 250ML 250 ML IV SCH (21:22)
--- NOTE | 2018-08-26 21:32 | Diagnostic Imaging Report ---
EXAM: MR Abdomen WITHOUT and WITH Contrast Magnetic Resonance Cholangiopancreatography (M.R.C.P.) INDICATION: \S\elevated liver enzymes with gallstones COMPARISON: None. TECHNIQUE: Multiplanar and multisequence imaging was performed of the abdomen without and with contrast. T1-weighted, T2-weighted images, T1-weighted in and [id number], and Diffusion weighted images. Dynamic, post gadolinium T1-weighted spoiled gradient echo scans. M.R.C.P. Technique: Multiplanar, multisequence MRCP was performed, with sequences including coronal turbo spin-echo T1-weighted scans, [facility] MRCP scans, coronal spin, coronal MPR 2, [facility], [facility] MRCP BLOUNT. Thin and thick slab 3-D MRCP sequences were performed by the technologist on the scanner workstation. IV Contrast: 15 mL of Multihance gadolinium Oral Contrast: None Medications: None COMPLICATIONS: None FINDINGS: LOWER THORAX: Unremarkable. HEPATOBILIARY: 0.7 cm cyst in the left hepatic lobe. (Series 6, image 17) 0.6 cm filling defect in the distal common bile duct. Distal common bile duct is irregular near the pancreatic head and does not completely join the pancreatic duct. GALLBLADDER: Gallbladder is mildly distended measuring 8.5 cm in length. A few mobile stones. No wall thickening. SPLEEN: No splenomegaly. PANCREAS: No focal masses or ductal dilatation. ADRENALS: No adrenal nodules KIDNEYS/URETERS: Kidneys enhance symmetrically. No hydronephrosis. 1.4 cm simple cyst in the inferior pole of the right kidney. Other tiny simple cysts. No stones. GI TRACT: No abnormal distention, wall thickening, or evidence of bowel obstruction. LYMPH NODES: No lymphadenopathy. VESSELS: Unremarkable. PERITONEUM / RETROPERITONEUM: No free air or fluid. BONES: Unremarkable. SOFT TISSUES: Unremarkable. IMPRESSION: 1. 0.6 cm filling defect in the distal common bile duct, consistent with choledocholithiasis. 2. Distal common bile duct is irregular near the pancreatic head and does not completely join the pancreatic duct. This concerning for pancreatic neoplasm or cholangiocarcinoma. Recommend ERCP. Signed by: Dr. Devon Pinto M.D. on 08/26/2018 9:29 PM
[2018-08-27] VITALS (15 sets, daily range): BP systolic 122–160; BP diastolic 73–125
[2018-08-27 06:45] LABS: BASOPHILS % 0.2 % (0.0-1.0); EOSINOPHILS # (AUTO) 0.1 (0.0-0.4); EOSINOPHILS % 0.5 % (0.0-6.0); HEMATOCRIT 45.3 % (38.2-49.6); HEMOGLOBIN 15.2 g/dL (14.0-18.0); LYMPHOCYTES # (AUTO) 0.4 (1.0-3.2); LYMPHOCYTES % 3.3 % (18.0-39.1); MEAN CORPUSCULAR HEMOGLOBIN 32.2 pg (28-32); MEAN CORPUSCULAR HGB CONC 33.6 g/dL (31-35); MONOCYTES # (AUTO) 0.4 (0.2-0.8); NEUTROPHILS # (AUTO) 11.6 (2.1-6.9); NEUTROPHILS % 91.8 % (38.7-80.0); PLATELET COUNT 91 x10e3/uL (140-360); RED BLOOD COUNT 4.72 x10e6/uL (4.3-5.7); RED CELL DISTRIBUTION WIDTH 14.9 % (11.7-14.4)
[2018-08-27] MEDS: GUAIFENESIN/DEXTROMETHORPHAN LIQD 5 ML UDC NG SCH ×3 (06:49→22:17)
[2018-08-27 07:03] LABS: ALANINE AMINOTRANSFERASE 521 IU/L (0-55); ALBUMIN 2.4 g/dL (3.5-5.0); ALBUMIN/GLOBULIN RATIO 0.8 (0.8-2.0); ALKALINE PHOSPHATASE 196 IU/L (40-150); ANION GAP 13.6 mmol/L (8-16); BLOOD UREA NITROGEN 18 mg/dL (7-26); BUN/CREATININE RATIO 27 (6-25); CALCIUM 8.1 mg/dL (8.4-10.2); CARBON DIOXIDE 22 mmol/L (22-29); CHLORIDE 106 mmol/L (98-107); CREATININE, SERUM 0.66 mg/dL (0.72-1.25); EST GLOMERULAR FILTRATION RATE > 60 ML/MIN (60-); GLUCOSE 97 mg/dL (74-118); POTASSIUM 3.6 mmol/L (3.5-5.1); SODIUM 138 mmol/L (136-145)
[2018-08-27 07:14] LABS: BAND NEUTROPHILS % (MANUAL) 4 %; EOSINOPHILS % (MANUAL) 2 % (0-7); LYMPHOCYTES % (MANUAL) 2 % (19-48); MONOCYTES % (MANUAL) 3 % (3.4-9.0); NEUTROPHILS % (MANUAL) 89 % (40-74); PLATELET ESTIMATE SLIGHTLY DECREASED; PLATELET MORPHOLOGY COMMENT NORMAL; RBC MORPHOLOGY COMMENT NORMAL
[2018-08-27] MEDS: PANTOPRAZOLE SOD 40 MG TABEC PO SCH (08:05)
[2018-08-27] MEDS: SODIUM CHLORIDE 0.9% 1000ML 1,000 ML IV SCH (08:05)
[2018-08-27] MEDS: ASPIRIN 81 MG CHEW TAB PO SCH (08:05)
[2018-08-27] MEDS: CEFEPIME HCL 1 GM VIAL IV SCH ×2 (08:05→22:17)
[2018-08-27] MEDS: (Mirabegron (Myrbetriq) 50 MG) PO SCH (08:05)
[2018-08-27] MEDS: LORATADINE 10 MG TAB PO SCH (08:05)
[2018-08-27] MEDS: BENZONATATE 100 MG CAP PO SCH ×3 (08:05→22:17)
[2018-08-27] MEDS ORDERED: IBUPROFEN 400 MG TAB PO PRN (12:15)
[2018-08-27] MEDS ORDERED: METOCLOPRAMIDE HCL 10 MG/2ML VIAL IV ONE (14:30)
[2018-08-27] MEDS ORDERED: MIDAZOLAM HCL 2 MG/2 ML VIAL ONE (14:53)
[2018-08-27] MEDS ORDERED: SODIUM CHLORIDE 0.9% 1000ML 1,000 ML ONE ×2 (17:03→18:28)
[2018-08-27] MEDS ORDERED: SUGAMMADEX SODIUM 200 MG/2 ML VIAL IV ONE (17:19)
[2018-08-27] MEDS ORDERED: FAMOTIDINE 20 MG/2 ML VIAL IV ONE (17:22)
[2018-08-27] MEDS ORDERED: ALBUTEROL/IPRATROPIUM 3 ML NEB ONE (19:07)
--- NOTE | 2018-08-27 19:28 | Operative Report ---
DATE OF PROCEDURE: August 27, 2018 REFERRING PHYSICIAN: Dr. Kayla Mata. PROCEDURE PERFORMED: Endoscopic retrograde cholangiopancreatography with endoscopic retrograde sphincterotomy and stone extraction followed by common bile duct stent insertion. INDICATIONS FOR PROCEDURE: Patient with choledocholithiasis on MRCP, obstructive jaundice. MEDICATION: Patient was done under general endotracheal anesthesia. Please see anesthesiologist's note. PROCEDURE: With the patient in the prone position after adequate induction of general endotracheal anesthesia, flexible fiberoptic Olympus side-viewing scope was inserted into the esophagus with ease and advanced all the way to the 2nd portion of the duodenum. The ampulla was identified and appeared to be within normal limits. The common bile duct was cannulated and a cholangiogram was carried out with obvious filling defect in the distal common bile duct. This was followed by endoscopic retrograde sphincterotomy followed by balloon sweep x2 with removal of approximately 7 mm stone. A CBD stent size 10/5 was then inserted in the common bile duct in the usual fashion with resultant good drainage. The scope was subsequently withdrawn. Patient tolerated the procedure well. IMPRESSION 1. Ampulla within normal limits. 2. Filling defect in the distal common bile duct on cholangiogram. 3. Endoscopic retrograde sphincterotomy was carried out in the usual fashion followed by a balloon sweep x2 with extraction of a 7 mm stone. 4. Common bile duct stent size 10/5 was deployed in the common bile duct with resultant good drainage. Patient tolerated the procedure well. Job#: [id number] GRETTA cc:DR. KAYLA KENNEDY
[2018-08-27] MEDS ORDERED: FUROSEMIDE INJ 10 MG/ML 4 ML VIAL ONE (19:44)
[2018-08-27] MEDS ORDERED: LEVALBUTEROL HCL SOLN NEBU 0.63 MG/3 ML NEB INH ONE (19:45)
[2018-08-27] MEDS ORDERED: LEVALBUTEROL HCL SOLN NEBU 0.63 MG/3 ML NEB ONE (19:49)
[2018-08-27] MEDS ORDERED: IPRATROPIUM BROMIDE 0.02% 2.5 ML NEB NEB ONE (20:30)
[2018-08-27] MEDS: VANCOMYCIN HCL 1.25 GM in SODIUM CHLORIDE 0.9% 250ML 250 ML IV SCH (22:17)
--- NOTE | 2018-08-27 23:58 | Progress Note ---
DATE: August 27, 2018 TIME: 12:15 p.m. OVERNIGHT: Patient found to have choledocholithiasis. REVIEW OF SYSTEMS: Denies any dizziness or chest pain. Denies any fever, chills, sweats, nausea, vomiting, diarrhea, or headache. OBJECTIVE VITAL SIGNS: Reviewed. GENERAL: Tired-appearing man, resting in bed. HEENT: Anicteric. CARDIOVASCULAR: Normal S1 and S2. LUNGS: He has fine crackles at the bases. ABDOMEN: Soft, nontender, and nondistended. EXTREMITIES: No edema. SKIN: Dry. PSYCHIATRIC: Normal affect. LABS: Reviewed. MEDICATIONS: Reviewed. ASSESSMENT: This is an 83-year-old man with: 1. Choledocholithiasis. 2. Cholelithiasis. 3. Interstitial lung disease with possible interstitial pneumonia. 4. Urinary tract infection. 5. Pulmonary edema. 6. Physical deconditioning. 7. Sepsis. 8. Peripheral edema. 9. Thrombocytopenia. 10. Gram-negative malgorzata bacteremia. PLAN 1. Follow up 2D echocardiogram. 2. Continue broad-spectrum antibiotics. 3. Obtain blood cultures since patient has fever. 4. LFTs are improved, and he will likely need ERCP followed by laparoscopic cholecystectomy. 5. Follow up labs tomorrow morning including LFTs. Job#: [id number] MAE
[2018-08-28] VITALS (10 sets, daily range): BP systolic 121–163; BP diastolic 83–98
--- NOTE | 2018-08-28 | Progress Note ---
DATE: August 26, 2018 TIME: 8:00 a.m. OVERNIGHT: Patient found to have cholelithiasis. REVIEW OF SYSTEMS: Denies any dizziness or chest pain. Denies any fever, chills, sweats, nausea, vomiting, diarrhea. OBJECTIVE VITAL SIGNS: Reviewed. GENERAL: Tired-appearing man, resting in bed. HEENT: Anicteric. CARDIOVASCULAR: Normal S1 and S2. LUNGS: He has fine crackles at the bilateral bases. No wheezing. He has moderate breath sounds. ABDOMEN: Soft, nontender, and nondistended. EXTREMITIES: He has hyperpigmentation of the bilateral forelegs. SKIN: Dry. PSYCHIATRIC: Flat affect. NEUROLOGICAL: Alert and oriented x3. LABS: Reviewed. MEDICATIONS: Reviewed. ASSESSMENT: This is an 83-year-old man with: 1. Interstitial lung disease with possible interstitial pneumonia. 2. Acute transaminitis. 3. Cholelithiasis. 4. Pulmonary edema. 5. Physical deconditioning. 6. Sepsis. 7. Peripheral edema. 8. Thrombocytopenia. PLAN 1. Continue on broad-spectrum antibiotics. 2. Ultrasound did show gallstone and sludge. 3. Surgery consultation and GI consultation. 4. Follow up 2D echocardiogram. Job#: [id number] MAE
--- NOTE | 2018-08-28 02:05 | Progress Note ---
DATE: August 27, 2018 INCOMPLETE DICTATION SUBJECTIVE: Patient is an 83 male who was admitted having some degree of fever. Today, the fever was around 100.5. Patient has a history of lung fibrosis . Job#: [id number] VAS
--- NOTE | 2018-08-28 02:16 | Progress Note ---
DATE: August 27, 2018 PROGRESS NOTE SUBJECTIVE: Patient is a regular patient as an outpatient of Dr. Kimble. He was admitted due to chills, increasing oxygen needs, and weakness. He is an 83-year-old male who has a history of pulmonary fibrosis and developed fever. No chest pains were present. He has a history of pulmonary fibrosis besides GERD; osteoarthritis; chronic back pain; recurrent diverticulitis, status post colonic resection; sepsis; VRE bacteremia; partial colon resection as reported. He used to smoke but quit in 1984. As reported, he was seen by Dr. Kimble. Dr. Paras Ordonez found that he was having choledocholithiasis, and the patient has an indication to undergo an ERCP. OBJECTIVE GENERAL: Currently on exam, he is alert and cooperative. Some coughing is present, but otherwise the breathing is better. VITALS: Temperature 100.3, blood pressure 122/73, oxygen saturation 99 on 3 liters. HEENT: Atraumatic. NECK: No tenderness. LUNGS: There are crackles in both lungs. HEART: No murmurs. ABDOMEN: Soft, nontender. EXTREMITIES: Pedal edema. As reported, he was found to have choledocholithiasis. In terms of the CBC, WBC 12.58, platelets 91,000, hemoglobin 15.2. The chemistry, total bilirubin of 7.6, AST 238, ALT 521, albumin 2.4. IMPRESSION: As reported; 1. Choledocholithiasis with obstructive jaundice. 2. Fever. 3. Lung fibrosis. 1. Gastroesophageal reflux disease. 2. Recurrent diverticulitis. PLAN: Patient was started on Maxipime 1 gram q. 12 IV, vancomycin drip 24 hours. He is getting also albuterol-Atrovent q.6h and Tessalon 100 t.i.d. He had a breathing test which is consistent with [id number] obstructive dysfunction. So, since the patient seems to be septic due to the obstructive choledocholithiasis and significant level of jaundice, I agree for the patient to have ERCP under general anesthesia. Job#: [id number] VALERI
[2018-08-28 05:05] LABS: BASOPHILS % 0.2 % (0.0-1.0); HEMATOCRIT 42.8 % (38.2-49.6); HEMOGLOBIN 14.6 g/dL (14.0-18.0); LYMPHOCYTES # (AUTO) 0.3 (1.0-3.2); LYMPHOCYTES % 1.9 % (18.0-39.1); MEAN CORPUSCULAR HEMOGLOBIN 32.2 pg (28-32); MEAN CORPUSCULAR HGB CONC 34.1 g/dL (31-35); MEAN CORPUSCULAR VOLUME 94.3 fL (81-99); MONOCYTES # (AUTO) 0.6 (0.2-0.8); MONOCYTES % 4.6 % (4.4-11.3); NEUTROPHILS # (AUTO) 12.3 (2.1-6.9); NEUTROPHILS % 90.9 % (38.7-80.0); PLATELET COUNT 86 x10e3/uL (140-360); RED BLOOD COUNT 4.54 x10e6/uL (4.3-5.7); RED CELL DISTRIBUTION WIDTH 14.9 % (11.7-14.4)
[2018-08-28 05:31] LABS: ALANINE AMINOTRANSFERASE 322 IU/L (0-55); ALBUMIN/GLOBULIN RATIO 0.6 (0.8-2.0); ALKALINE PHOSPHATASE 186 IU/L (40-150); ANION GAP 14.1 mmol/L (8-16); BLOOD UREA NITROGEN 15 mg/dL (7-26); BUN/CREATININE RATIO 20 (6-25); CARBON DIOXIDE 21 mmol/L (22-29); CHLORIDE 107 mmol/L (98-107); CREATININE, SERUM 0.76 mg/dL (0.72-1.25); EST GLOMERULAR FILTRATION RATE > 60 ML/MIN (60-); GLUCOSE 179 mg/dL (74-118); POTASSIUM 3.1 mmol/L (3.5-5.1); SODIUM 139 mmol/L (136-145)
[2018-08-28] MEDS: GUAIFENESIN/DEXTROMETHORPHAN LIQD 5 ML UDC NG SCH ×3 (06:00→20:40)
[2018-08-28] MEDS: SODIUM CHLORIDE 0.9% 1000ML 1,000 ML IV SCH ×2 (06:58→08:45)
[2018-08-28] MEDS: CEFEPIME HCL 1 GM VIAL IV SCH ×2 (08:45→20:40)
[2018-08-28] MEDS: LORATADINE 10 MG TAB PO SCH (08:45)
[2018-08-28] MEDS: PANTOPRAZOLE SOD 40 MG TABEC PO SCH (08:45)
[2018-08-28] MEDS: BENZONATATE 100 MG CAP PO SCH ×3 (08:45→20:40)
[2018-08-28] MEDS: ASPIRIN 81 MG CHEW TAB PO SCH (08:45)
[2018-08-28] MEDS: (Mirabegron (Myrbetriq) 50 MG) PO SCH (08:45)
--- NOTE | 2018-08-28 09:59 | Diagnostic Imaging Report ---
EXAM: Fluoroscopy for ERCP INDICATION: Abdominal Pain. Elevated enzymes. Evaluate for choledocholithiasis \S\C-ARM ASSIST FOR ERCP, DISTAL DUCT STONE REM AND STENT COMPARISON: MRCP 08/26/2018. CT chest 08/25/2018. TECHNIQUE: ERCP was performed by Dr. HORACIO MAST MD Radiologist was not present at the time of procedure. RADIATION DOSE: Fluoroscopy Time: 1 min 42 seconds Dose Area Product: 1283 cGym2 Cumulative air kerma: 79.22 mGy Air Kerma (AK) value has been reviewed. It is below the limits set by the Radiation Protocol Committee (RPC) committee. FINDINGS: ERCP is performed. Distal common bile duct remains mildly irregular. Balloon sweeping/dilatation was performed. No residual filling defects in the common bile duct. A common bile duct stent was placed. IMPRESSION: ERCP was performed. No residual filling defects identified in the common bile duct. Initial images demonstrates irregularity of the distal common bile duct with subsequent balloon sweeping/dilatation. Signed by: Dr. Devon Pinto M.D. on 08/28/2018 9:56 AM
[2018-08-28] MEDS ORDERED: POTASSIUM CHL IV ONE (12:00)
[2018-08-28] MEDS ORDERED: SODIUM CHLORIDE 0.9% IV ONE (12:00)
[2018-08-28 12:21] LABS: AMYLASE 29 U/L (25-125); LIPASE 11 U/L (8-78)
[2018-08-28] MEDS: VANCOMYCIN HCL 1.25 GM in SODIUM CHLORIDE 0.9% 250ML 250 ML IV SCH (20:40)
--- NOTE | 2018-08-28 21:16 | Progress Note ---
DATE: August 28, 2018 TIME: 1900. OVERNIGHT: No acute events. Patient has status post ERCP x2 days. REVIEW OF SYSTEMS: Patient without complaint of shortness of breath, chest pain, or dizziness when questioned. Patient denies fever, nausea, vomiting, diarrhea, headache, chills, sweats, or leg pain. OBJECTIVE VITAL SIGNS: Reviewed. GENERAL APPEARANCE: This is a tired-appearing elderly man, resting supine in bed. HEENT: Wears glasses, normocephalic. No sinus tenderness. Nares parent. Oral mucosa moist and intact. Trachea midline. CV: S1 and S2 auscultated without extracardiac sounds. Irregular rates. LUNGS: Bilateral breath sounds with fine crackles and clearing cough, diminished at bases. ABDOMEN: Soft, nontender, and nondistended. EXTREMITIES: Without edema. SKIN: Dry. PSYCHIATRIC: Normal affect. LABS: NA 139, K 3.1, chloride 107, CO2 of 21, GAP 14.1, BUN 15, CR 0.76. White count continue to be elevated at 13.5 with H and H of 14.6 and 42.8 respectively, platelets continue downward trended at 86. MEDICATIONS: Guaifenesin q.8, Tessalon Perles t.i.d., normal saline with 50 of K 35 mL an hour, Protonix 40 mg a.c. breakfast, Claritin 10 mg p.o. daily, aspirin 81 mg p.o. daily, cefepime 1 g IV q.12 hours, vanc 1.25 g q.24, p.r.n. ibuprofen, p.r.n. Dilaudid, p.r.n. Flonase, p.r.n. Zofran, p.r.n. DuoNebs, p.r.n. Dewey, and unstated home medication. ASSESSMENT: This is an 83-year-old man with 1. Choledocholithiasis, status post endoscopic retrograde cholangiopancreatography. Laparoscopic cholecystectomy per surgical services. 2. Cholelithiasis per gastrointestinal services/as above. 3. Interstitial lung disease, likely interstitial pneumonia. 4. Urinary tract infection. 5. Pulmonary edema. 6. Physical deconditioning. PT consult noted at this date. 7. Sepsis. Continue supportive treatment. 8. Peripheral edema, resolved. 9. Thrombocytopenia. Continuous downward trend. We will follow counts in the morning. 10. Gram-negative malgorzata bacteremia. IV antibiotics as above. PLAN 1. Follow up echo, continue antibiotics, blood culture following initiation of ID now negative as with Klebsiella pneumoniae initially. 2. Amylase and lipase. Continue with some elevation and address per pulmonary. 3. Prophylaxis. SCDs and Protonix. 4. Disposition. PT consult noted for recommendations with mobility per staff auditor and family request. Cholecystectomy, possibility pending. Discussed at length with RN, patient, and family. All questions answered on this date. Dictated by: Carlos Bruno NP Job#: [id number] VAS
[2018-08-28] MEDS ORDERED: POTASSIUM CHLORIDE 20 MEQ TAB CR PO STA (23:57)
[2018-08-29] VITALS (9 sets, daily range): BP systolic 126–164; BP diastolic 70–99
--- NOTE | 2018-08-29 02:07 | Progress Note ---
DATE: August 28, 2018 Progress note of the lung consultation. SUBJECTIVE: Patient is 83-year-old male. He underwent ERCP sometime yesterday, but he still is having jaundice and abnormal liver profile results. Patient was admitted due to sepsis with gram-negative sepsis, was found to have on x-rays involvement of the gallbladder with sludge and cholecystitis and the patient besides that has persistent jaundice. He has history of pulmonary fibrosis, besides that GERD, osteoarthritis, chronic back pain, status post colonic resection with recurrent diverticulitis. OBJECTIVE: GENERAL: Currently as reported, he is alert. VITAL SIGNS: In terms of the vitals, pulse 90, oxygen saturation 98. He is afebrile. The blood pressure is 149/83, oxygen saturation 95 on 2 liters of oxygen nasal cannula. HEENT: Disclosed jaundice. NECK: No tenderness. LUNGS: Crackles especially in the bases. HEART: No murmurs. ABDOMEN: There is some degree of tenderness in the right upper quadrant. EXTREMITIES: No pedal edema. There is in both upper extremities in the dorsal area darkness of the skin in some old and recent wounds. LABS: In terms of the labs, the potassium was 3.1, the rest of the electrolytes unremarkable. Sugar 179. ALT 322, albumin 2, total bilirubin 7.2, alkaline phosphatase 186. WBC 13.52, platelets 86,000. IMPRESSION: 1. Sepsis. 2. Cholecystitis with signs of looks more obstructive jaundice. 3. Besides that he has lung pulmonary fibrosis, gastroesophageal reflux disease, status post colonic resection, recurrent diverticulitis. RECOMMENDATION: I agree with vancomycin and cefepime being given IV. He is also on breathing treatments q.6. p.r.n. The surgeon indicated that he is planning to do cholecystectomy. There is jaundice and there is also thrombocytopenia. So, in terms of the lungs, the patient could undergo the lap cholecystectomy according to the lung function, although the pulmonary function tests disclose [id number] restrictive dysfunction with very low DLCO. Job#: [id number]
[2018-08-29 05:03] LABS: BASOPHILS % 0.3 % (0.0-1.0); EOSINOPHILS # (AUTO) 0.1 (0.0-0.4); EOSINOPHILS % 1.1 % (0.0-6.0); HEMATOCRIT 39.1 % (38.2-49.6); HEMOGLOBIN 13.5 g/dL (14.0-18.0); LYMPHOCYTES # (AUTO) 0.6 (1.0-3.2); LYMPHOCYTES % 5.6 % (18.0-39.1); MEAN CORPUSCULAR HEMOGLOBIN 32.4 pg (28-32); MEAN CORPUSCULAR HGB CONC 34.5 g/dL (31-35); MEAN CORPUSCULAR VOLUME 93.8 fL (81-99); MONOCYTES # (AUTO) 0.6 (0.2-0.8); MONOCYTES % 5.4 % (4.4-11.3); NEUTROPHILS # (AUTO) 9.9 (2.1-6.9); NEUTROPHILS % 86.6 % (38.7-80.0); RED BLOOD COUNT 4.17 x10e6/uL (4.3-5.7); RED CELL DISTRIBUTION WIDTH 14.9 % (11.7-14.4)
[2018-08-29 05:04] LABS: PLATELET COUNT 99 x10e3/uL (140-360)
[2018-08-29] MEDS ORDERED: POTASSIUM CHLORIDE 20 MEQ TAB CR PO STA (05:22)
[2018-08-29 05:27] LABS: ALANINE AMINOTRANSFERASE 197 IU/L (0-55); ALBUMIN 1.7 g/dL (3.5-5.0); ALBUMIN/GLOBULIN RATIO 0.6 (0.8-2.0); ALKALINE PHOSPHATASE 156 IU/L (40-150); ANION GAP 12.6 mmol/L (8-16); BLOOD UREA NITROGEN 13 mg/dL (7-26); BUN/CREATININE RATIO 21 (6-25); CALCIUM 7.4 mg/dL (8.4-10.2); CARBON DIOXIDE 22 mmol/L (22-29); CHLORIDE 109 mmol/L (98-107); CREATININE, SERUM 0.61 mg/dL (0.72-1.25); EST GLOMERULAR FILTRATION RATE > 60 ML/MIN (60-); GLUCOSE 69 mg/dL (74-118); POTASSIUM 3.6 mmol/L (3.5-5.1); SODIUM 140 mmol/L (136-145)
[2018-08-29] MEDS: GUAIFENESIN/DEXTROMETHORPHAN LIQD 5 ML UDC NG SCH ×3 (05:31→21:28)
[2018-08-29] MEDS: ASPIRIN 81 MG CHEW TAB PO SCH (08:05)
[2018-08-29] MEDS: LORATADINE 10 MG TAB PO SCH (08:05)
[2018-08-29] MEDS: PANTOPRAZOLE SOD 40 MG TABEC PO SCH (08:05)
[2018-08-29] MEDS: BENZONATATE 100 MG CAP PO SCH ×3 (08:05→21:28)
[2018-08-29] MEDS: CEFEPIME HCL 1 GM VIAL IV SCH ×2 (08:05→20:31)
[2018-08-29] MEDS: (Mirabegron (Myrbetriq) 50 MG) PO SCH (09:00)
--- NOTE | 2018-08-29 11:55 | Progress Note ---
DATE: August 29, 2018 TIME: 8:02 a.m. OVERNIGHT: No events. REVIEW OF SYSTEMS: Denies any dizziness, chest pain, shortness of breath, fever, chills, sweats, nausea, vomiting, or diarrhea. VITAL SIGNS: Reviewed. PHYSICAL EXAMINATION GENERAL: A tired-appearing man resting in bed. HEENT: Atraumatic. CARDIOVASCULAR: Normal S1 and S2. LUNGS: Moderate breath sounds. ABDOMEN: Soft, nontender, and nondistended. : He has Brown in place. EXTREMITIES: No edema or calf tenderness. He has a Band-Aid on the foreleg. SKIN: Dry. PSYCHIATRIC: Flat affect. NEUROLOGIC: Alert and oriented times 3. Moving all extremities. LABS: Reviewed. MEDICATIONS: Reviewed. ASSESSMENT: An 83-year-old man. 1. Interstitial lung disease with possible interstitial pneumonia. 2. Acute transaminitis and jaundice. 3. Cholelithiasis. 4. Choledocholithiasis, status post stent placement in the common bile duct. 5. Physical deconditioning. 6. Sepsis. 7. Peripheral edema. 8. Thrombocytopenia. 9. Klebsiella bacteremia. PLAN 1. Continue broad-spectrum antibiotics. 2. He is status post stent placement in the common bile duct. 3. Cholecystectomy is pending. 4. Liver enzymes are improving. 5. Repeat culture of the blood is negative so far. 6. Renal function is normal. We will remove Brown at this time at the patient's request. 7. Follow up CA19-9, which is pending. 8. Leukocytosis is resolving. 9. Follow up hepatitis panel. Job#: [id number]
[2018-08-29] MEDS: VANCOMYCIN HCL 1.25 GM in SODIUM CHLORIDE 0.9% 250ML 250 ML IV SCH (21:28)
[2018-08-30] VITALS (25 sets, daily range): BP systolic 104–153; BP diastolic 70–93
[2018-08-30] MEDS: GUAIFENESIN/DEXTROMETHORPHAN LIQD 5 ML UDC NG SCH ×3 (05:10→21:33)
[2018-08-30] MEDS: PANTOPRAZOLE SOD 40 MG TABEC PO SCH (07:30)
[2018-08-30] MEDS: LORATADINE 10 MG TAB PO SCH (09:00)
[2018-08-30] MEDS: BENZONATATE 100 MG CAP PO SCH ×3 (09:00→21:00)
[2018-08-30] MEDS: (Mirabegron (Myrbetriq) 50 MG) PO SCH (09:00)
[2018-08-30] MEDS: ASPIRIN 81 MG CHEW TAB PO SCH (09:00)
[2018-08-30] MEDS: ALBUTEROL/IPRATROPIUM 3 ML NEB NEB PRN (09:01)
[2018-08-30] MEDS: CEFEPIME HCL 1 GM VIAL IV SCH ×2 (09:25→21:32)
[2018-08-30] MEDS ORDERED: BUPIVACAINE 0.25%/EPI 30ML SDV INJ ONE (09:56)
[2018-08-30] MEDS ORDERED: MORPHINE SULFATE 2 MG/ML SYR ONE (12:53)
[2018-08-30] MEDS ORDERED: HYDRALAZINE HCL 20 MG/ML VIAL ONE (12:58)
[2018-08-30] MEDS ORDERED: LORAZEPAM INJ 2 MG/ML VIAL ONE (13:42)
[2018-08-30] MEDS: MORPHINE SULFATE INJ 4 MG/ML INJ IV PRN (15:50)
[2018-08-30] MEDS: ONDANSETRON HCL INJ 2 MG/ML VIAL IV PRN (15:50)
[2018-08-30 17:29] LABS: ABG PCO2 28 mmHg (41-51); ABG PH 7.39 (7.31-7.41); ABG PO2 79 mmHg (80-105)
[2018-08-30 17:30] LABS: ABG HCO3 17 mmol/L (23-28)
[2018-08-30] MEDS ORDERED: PROPOFOL IV EMULSION 10 MG/ML 20 ML VIAL ONE (17:32)
[2018-08-30] MEDS ORDERED: DESFLURANE 240 ML BTL INH ONE (17:32)
[2018-08-30] MEDS ORDERED: ROCURONIUM BROMIDE 10 MG/ML 5ML VIAL ONE (17:32)
[2018-08-30] MEDS ORDERED: LIDOCAINE HCL 2% LOCAL INJ 5 ML SDV VIAL INJ ONE (17:32)
[2018-08-30] MEDS ORDERED: FENTANYL CITRATE/PF 100MCG/2 ML INJ ONE (18:07)
[2018-08-30] MEDS: VANCOMYCIN HCL 1.25 GM in SODIUM CHLORIDE 0.9% 250ML 250 ML IV SCH (21:32)
--- NOTE | 2018-08-30 23:11 | Progress Note ---
DATE: August 30, 2018 TIME: 6:35 a.m. OVERNIGHT: No events. REVIEW OF SYSTEMS: Denies any dizziness, chest pain, shortness of breath, fever, chills, sweats, leg pain or back pain. VITAL SIGNS: Reviewed. PHYSICAL EXAMINATION GENERAL: A tired-appearing man resting in bed. HEENT: Anicteric. CARDIOVASCULAR: Normal S1 and S2. LUNGS: Moderate breath sounds. ABDOMEN: Soft and nondistended. Minimal tenderness in the right upper quadrant. EXTREMITIES: No edema. SKIN: Dry. PSYCHIATRIC: Flat affect. NEUROLOGIC: Alert and oriented x3. LABS: Reviewed. MEDICATIONS: Reviewed. ASSESSMENT: An 83-year-old man 1. Interstitial lung disease with possible interstitial pneumonia. 2. Acute transaminitis and jaundice. 3. Cholelithiasis. 4. Choledocholithiasis, status post stent placement in the common bile duct. 5. Physical deconditioning. 6. Sepsis. 7. Peripheral edema. 8. Thrombocytopenia. 9. Klebsiella bacteremia. PLAN 1. Repeat blood cultures are negative today. 2. Check LFTs. 3. negative. 4. Surgical management of the gallbladder pending today. 5. Follow up CA19-9. Job#: [id number]
[2018-08-31] VITALS (14 sets, daily range): BP systolic 116–152; BP diastolic 66–104
[2018-08-31] MEDS: ONDANSETRON HCL INJ 2 MG/ML VIAL IV PRN (04:19)
[2018-08-31] MEDS: MORPHINE SULFATE INJ 4 MG/ML INJ IV PRN (04:19)
[2018-08-31 05:03] LABS: HEMATOCRIT 43.6 % (38.2-49.6); HEMOGLOBIN 14.8 g/dL (14.0-18.0); MEAN CORPUSCULAR HGB CONC 33.9 g/dL (31-35); MEAN CORPUSCULAR VOLUME 94.4 fL (81-99); PLATELET COUNT 123 x10e3/uL (140-360); RED BLOOD COUNT 4.62 x10e6/uL (4.3-5.7); RED CELL DISTRIBUTION WIDTH 15.9 % (11.7-14.4)
[2018-08-31] MEDS: GUAIFENESIN/DEXTROMETHORPHAN LIQD 5 ML UDC NG SCH ×3 (05:13→20:27)
[2018-08-31 05:31] LABS: ANION GAP 18.6 mmol/L (8-16); BLOOD UREA NITROGEN 27 mg/dL (7-26); BUN/CREATININE RATIO 42 (6-25); CALCIUM 8.8 mg/dL (8.4-10.2); CARBON DIOXIDE 18 mmol/L (22-29); CHLORIDE 108 mmol/L (98-107); CREATININE, SERUM 0.64 mg/dL (0.72-1.25); EST GLOMERULAR FILTRATION RATE > 60 ML/MIN (60-); GLUCOSE 90 mg/dL (74-118); POTASSIUM 3.6 mmol/L (3.5-5.1); SODIUM 141 mmol/L (136-145)
[2018-08-31] MEDS: PANTOPRAZOLE SOD 40 MG TABEC PO SCH (08:00)
[2018-08-31] MEDS: (Mirabegron (Myrbetriq) 50 MG) PO SCH (08:45)
[2018-08-31] MEDS: BENZONATATE 100 MG CAP PO SCH ×3 (08:45→20:26)
[2018-08-31] MEDS: CEFEPIME HCL 1 GM VIAL IV SCH ×2 (08:45→20:23)
[2018-08-31] MEDS: ASPIRIN 81 MG CHEW TAB PO SCH (08:45)
[2018-08-31] MEDS: LORATADINE 10 MG TAB PO SCH (08:45)
[2018-08-31 10:59] LABS: BAND NEUTROPHILS % (MANUAL) 1 %; LYMPHOCYTES % (MANUAL) 13 % (19-48); MONOCYTES % (MANUAL) 4 % (3.4-9.0); NEUTROPHILS % (MANUAL) 81 % (40-74); PLATELET ESTIMATE SLIGHTLY DECREASED
[2018-08-31 11:00] LABS: PLATELET MORPHOLOGY COMMENT NORMAL; RBC MORPHOLOGY COMMENT NORMAL
[2018-08-31] MEDS ORDERED: FUROSEMIDE INJ 10 MG/ML 4 ML VIAL IV SCH (12:45)
[2018-08-31] MEDS ORDERED: HYDROCODONE/APAP 7.5MG-325MG 1 EA TAB PO PRN ×2 (12:45)
[2018-08-31] MEDS ORDERED: HYDROCODONE/APAP 5MG-325MG TAB PO ONE (12:45)
[2018-08-31] MEDS: ENOXAPARIN SOD INJ 40 MG/0.4 ML SYR SC SCH (17:07)
[2018-08-31] MEDS: FLUTICASONE PROPIONATE NASAL SPRAY NS PRN (19:50)
[2018-08-31] MEDS: VANCOMYCIN HCL 1.25 GM in SODIUM CHLORIDE 0.9% 250ML 250 ML IV SCH (20:23)
--- NOTE | 2018-08-31 22:16 | Progress Note ---
DATE: August 31, 2018 OVERNIGHT: The patient underwent laparoscopic cholecystectomy. Currently, his pain is 4/10. REVIEW OF SYSTEMS: Denies any dizziness or chest pain. Denies nausea, vomiting, diarrhea, headache, back pain, leg pain. PHYSICAL EXAMINATION VITAL SIGNS: Reviewed. GENERAL: A tired-appearing man resting in bed. HEENT: Anicteric. CARDIOVASCULAR: Normal S1 and S2. LUNGS: Moderate breath sounds. ABDOMEN: Soft and nondistended. He has right-sided abdominal dressing. He has a ASAD drain in place with serosanguineous material. EXTREMITIES: No cyanosis. SKIN: Dry. PSYCHIATRIC: Normal affect. NEUROLOGIC: Alert and appropriate. LABS: Reviewed. MEDICATIONS: Reviewed. ASSESSMENT: This is an 83-year-old man with: 1. Interstitial lung disease with interstitial pneumonia. 2. Acute transaminitis and jaundice. 3. Cholelithiasis: Status post laparoscopic cholecystectomy. 4. Choledocholithiasis: Status post stent placement in the common bile duct. 5. Physical deconditioning. 6. Sepsis. 7. Peripheral edema. 8. Thrombocytopenia. 9. Klebsiella bacteremia. PLAN 1. Repeat cultures negative to date. 2. Follow up LFTs. 3. Drain in place. Defer to surgical team. 4. Physical therapy. Job#: [id number] DERREK
[2018-09-01] VITALS (9 sets, daily range): BP systolic 121–156; BP diastolic 77–92
[2018-09-01 04:42] LABS: HEMATOCRIT 41.7 % (38.2-49.6); HEMOGLOBIN 14.2 g/dL (14.0-18.0); MEAN CORPUSCULAR HEMOGLOBIN 32.1 pg (28-32); MEAN CORPUSCULAR HGB CONC 34.1 g/dL (31-35); MEAN CORPUSCULAR VOLUME 94.3 fL (81-99); PLATELET COUNT 153 x10e3/uL (140-360); RED BLOOD COUNT 4.42 x10e6/uL (4.3-5.7); RED CELL DISTRIBUTION WIDTH 15.9 % (11.7-14.4)
[2018-09-01 05:08] LABS: ALANINE AMINOTRANSFERASE 107 IU/L (0-55); ALBUMIN 1.8 g/dL (3.5-5.0); ALBUMIN/GLOBULIN RATIO 0.5 (0.8-2.0); ALKALINE PHOSPHATASE 200 IU/L (40-150); ANION GAP 15.2 mmol/L (8-16); BLOOD UREA NITROGEN 28 mg/dL (7-26); BUN/CREATININE RATIO 37 (6-25); CALCIUM 8.9 mg/dL (8.4-10.2); CARBON DIOXIDE 25 mmol/L (22-29); CHLORIDE 104 mmol/L (98-107); CREATININE, SERUM 0.76 mg/dL (0.72-1.25); EST GLOMERULAR FILTRATION RATE > 60 ML/MIN (60-); GLUCOSE 115 mg/dL (74-118); POTASSIUM 3.2 mmol/L (3.5-5.1); SODIUM 141 mmol/L (136-145)
[2018-09-01] MEDS: GUAIFENESIN/DEXTROMETHORPHAN LIQD 5 ML UDC NG SCH ×3 (06:00→21:21)
[2018-09-01] MEDS ORDERED: POTASSIUM CHLORIDE 20 MEQ TAB CR PO NR (08:30)
[2018-09-01] MEDS: CEFEPIME HCL 1 GM VIAL IV SCH (08:31)
[2018-09-01] MEDS: PANTOPRAZOLE SOD 40 MG TABEC PO SCH (08:31)
[2018-09-01] MEDS: LORATADINE 10 MG TAB PO SCH (08:31)
[2018-09-01] MEDS: BENZONATATE 100 MG CAP PO SCH ×3 (08:31→21:21)
[2018-09-01] MEDS: (Mirabegron (Myrbetriq) 50 MG) PO SCH (08:31)
[2018-09-01] MEDS: ASPIRIN 81 MG CHEW TAB PO SCH (08:31)
[2018-09-01 11:03] LABS: ANISOCYTOSIS SLIGHT; EOSINOPHILS % (MANUAL) 1 % (0-7); LYMPHOCYTES % (MANUAL) 14 % (19-48); MONOCYTES % (MANUAL) 2 % (3.4-9.0); NEUTROPHILS % (MANUAL) 78 % (40-74); PLATELET ESTIMATE ADEQUATE; PLATELET MORPHOLOGY COMMENT NORMAL; RBC MORPHOLOGY COMMENT NORMAL
--- NOTE | 2018-09-01 13:02 | Diagnostic Imaging Report ---
EXAMINATION: Head CT HISTORY: Left-sided weakness COMPARISON: None. TECHNIQUE: Multidetector axial images were obtained without contrast from the foramen magnum to the vertex . The images were reconstructed using brain and bone algorithms. Thin section brain images were reformatted into coronal and sagittal planes. Image quality: Motion/streaking artifact limits the evaluation of the skull base and posterior cranial fossa. Dose modulation, iterative reconstruction, and/or weight based adjustment of the mA/kV was utilized to reduce the radiation dose to as low as reasonably achievable. FINDINGS: Parenchyma: 1. Severe confluent periventricular, robin radiata and centrum semiovale white matter hypodensities, most likely nonspecific chronic microvascular ischemic changes. 2. No mass or hemorrhage. No CT evidence of acute territorial vascular insult. Extra-axial spaces:No abnormal density. No extra-axial fluid collections Brain volume: Normal for age. Ventricles: No hydrocephalus or displacement. Arteries: No density suggestive of thrombus. Dural sinuses: No abnormal density. Extra-axial spaces: No abnormal density. Foramen magnum: No mass, Chiari malformation, or basilar invagination. Sella: No obvious mass. Paranasal/mastoid sinuses: Imaged portions unremarkable. Skull/Scalp: No lytic or blastic lesions. No fractures. IMPRESSION: 1. No acute intracranial hemorrhage or cortical infarct. 2. Severe confluent chronic microvascular ischemic changes, superimposed subcortical acute infarct cannot be excluded. Signed by: Dr. Ilana Luo M.D. on 09/01/2018 12:59 PM
--- NOTE | 2018-09-01 16:45 | Diagnostic Imaging Report ---
Exam: Brain MRI without contrast History: Slurred speech and left-sided weakness Comparison studies: Head CT 09/01/2018 Technique: Sagittal T2; axial DWI, FLAIR, GRE, T2, T1, Coronal FLAIR. Intravenous contrast: None Findings: Scalp: Normal in signal . No masses . Bone marrow: Normal in signal intensity. Extra-axial: No masses or fluid collections. Brain sulci: Prominent Ventricles: Moderate compensatory dilation. No hydrocephalus . Parenchyma: Nonspecific diffuse, confluent supratentorial white matter T2/FLAIR hyperintensity. 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 No masses, hemorrhage, acute or chronic cortical ischemic insults. Suprasellar region: No abnormalities. Craniocervical junction: No abnormalities. Patent foramen magnum. No Chiari one malformation. Vessels: Normal flow-voids in the arteries and sinuses. Incidental findings: Bilateral lens replacements. Trace T2 hyperintense mucosal thickening within the paranasal sinuses. T2 hyperintense partial opacification of the mastoid air cells. IMPRESSION: 1 No evidence of acute vascular insult. 2. No changes when compared to head CT dated 09/01/2018. Chronic findings: Generalized age-related cerebral volume loss. Severe supratentorial white matter microvascular ischemic changes vs chronic hypertensive encephalopathy in appropriate clinical setting. A preliminary report was provided by Dr. Bishop on 09/01/2018 4:45 PM. I have reviewed the images and agree with the findings in the preliminary report. Signed by: Dr. Ragini Boyce M.D. on 09/01/2018 8:32 PM
[2018-09-01] MEDS: ENOXAPARIN SOD INJ 40 MG/0.4 ML SYR SC SCH (17:06)
--- NOTE | 2018-09-01 18:14 | Diagnostic Imaging Report ---
EXAM: Modified barium swallow INDICATION: Dysphagia COMPARISON: None FINDINGS: This examination was conducted in conjunction with speech pathologist. Patient was given, by mouth, liquids and solids of various consistencies. Anterior spillage was noted with assisted cup sip. No aspiration or penetration was noted. Trace vallecular residue was noted after the swallow. IMPRESSION: <Functional pharyngeal swallow. No evidence of aspiration. Please see speech pathology report for detailed description and recommendations.> Signed by: Dr. Frank Virgen M.D. on 09/01/2018 6:11 PM
[2018-09-01] MEDS: FLUTICASONE PROPIONATE NASAL SPRAY NS PRN (19:37)
[2018-09-01] MEDS: VANCOMYCIN HCL 1.25 GM in SODIUM CHLORIDE 0.9% 250ML 250 ML IV SCH (21:21)
[2018-09-02] VITALS (9 sets, daily range): BP systolic 128–156; BP diastolic 86–94
[2018-09-02 05:04] LABS: ANION GAP 12.4 mmol/L (8-16); BLOOD UREA NITROGEN 28 mg/dL (7-26); BUN/CREATININE RATIO 47 (6-25); CALCIUM 8.5 mg/dL (8.4-10.2); CARBON DIOXIDE 25 mmol/L (22-29); CHLORIDE 107 mmol/L (98-107); EST GLOMERULAR FILTRATION RATE > 60 ML/MIN (60-); GLUCOSE 98 mg/dL (74-118); POTASSIUM 3.4 mmol/L (3.5-5.1); SODIUM 141 mmol/L (136-145)
[2018-09-02] MEDS: GUAIFENESIN/DEXTROMETHORPHAN LIQD 5 ML UDC NG SCH ×3 (05:28→21:18)
[2018-09-02] MEDS: LORATADINE 10 MG TAB PO SCH (08:05)
[2018-09-02] MEDS: BENZONATATE 100 MG CAP PO SCH ×3 (08:05→21:00)
[2018-09-02] MEDS: PANTOPRAZOLE SOD 40 MG TABEC PO SCH (08:05)
[2018-09-02] MEDS: ASPIRIN 81 MG CHEW TAB PO SCH (08:05)
[2018-09-02] MEDS ORDERED: POTASSIUM CHLORIDE 20 MEQ TAB CR PO NR (08:30)
[2018-09-02] MEDS: (Mirabegron (Myrbetriq) 50 MG) PO SCH (09:00)
[2018-09-02] MEDS ORDERED: FUROSEMIDE INJ 10 MG/ML 4 ML VIAL IV ONE (13:45)
[2018-09-02] MEDS: NYSTATIN SUSPENSION 5 ML UDC PO SCH ×2 (14:30→21:18)
[2018-09-02] MEDS: ENOXAPARIN SOD INJ 40 MG/0.4 ML SYR SC SCH (17:55)
[2018-09-03] VITALS (23 sets, daily range): BP systolic 48–149; BP diastolic 29–99
[2018-09-03] MEDS: GUAIFENESIN/DEXTROMETHORPHAN LIQD 5 ML UDC NG SCH ×4 (01:43→21:43)
[2018-09-03] MEDS: BENZONATATE 100 MG CAP PO SCH ×4 (01:43→20:05)
[2018-09-03 05:11] LABS: BASOPHILS # (AUTO) 0.2 (0.0-0.1); BASOPHILS % 1.4 % (0.0-1.0); EOSINOPHILS # (AUTO) 0.2 (0.0-0.4); EOSINOPHILS % 1.8 % (0.0-6.0); HEMATOCRIT 42.2 % (38.2-49.6); HEMOGLOBIN 14.2 g/dL (14.0-18.0); LYMPHOCYTES # (AUTO) 1.1 (1.0-3.2); MEAN CORPUSCULAR HEMOGLOBIN 32.3 pg (28-32); MEAN CORPUSCULAR HGB CONC 33.6 g/dL (31-35); MEAN CORPUSCULAR VOLUME 96.1 fL (81-99); MONOCYTES # (AUTO) 0.5 (0.2-0.8); MONOCYTES % 4.8 % (4.4-11.3); NEUTROPHILS % 75.7 % (38.7-80.0); PLATELET COUNT 187 x10e3/uL (140-360); RED BLOOD COUNT 4.39 x10e6/uL (4.3-5.7); RED CELL DISTRIBUTION WIDTH 15.6 % (11.7-14.4)
[2018-09-03 05:29] LABS: ALANINE AMINOTRANSFERASE 72 IU/L (0-55); ALBUMIN 1.8 g/dL (3.5-5.0); ALBUMIN/GLOBULIN RATIO 0.5 (0.8-2.0); ALKALINE PHOSPHATASE 224 IU/L (40-150); ANION GAP 12.2 mmol/L (8-16); BLOOD UREA NITROGEN 23 mg/dL (7-26); BUN/CREATININE RATIO 35 (6-25); CALCIUM 8.8 mg/dL (8.4-10.2); CARBON DIOXIDE 30 mmol/L (22-29); CHLORIDE 103 mmol/L (98-107); CREATININE, SERUM 0.66 mg/dL (0.72-1.25); EST GLOMERULAR FILTRATION RATE > 60 ML/MIN (60-); GLUCOSE 112 mg/dL (74-118); POTASSIUM 3.2 mmol/L (3.5-5.1); SODIUM 142 mmol/L (136-145)
[2018-09-03] MEDS: NYSTATIN SUSPENSION 5 ML UDC PO SCH ×3 (05:31→21:44)
[2018-09-03] MEDS ORDERED: POTASSIUM CHLORIDE 20 MEQ TAB CR PO STA (06:25)
[2018-09-03] MEDS ORDERED: CHLORASEPTIC SPRAY 177 ML BTL MM PRN (07:15)
[2018-09-03] MEDS: LORATADINE 10 MG TAB PO SCH (08:19)
[2018-09-03] MEDS: ASPIRIN 81 MG CHEW TAB PO SCH (08:19)
[2018-09-03] MEDS: (Mirabegron (Myrbetriq) 50 MG) PO SCH (08:19)
[2018-09-03] MEDS: PANTOPRAZOLE SOD 40 MG TABEC PO SCH (08:19)
[2018-09-03] MEDS ORDERED: POTASSIUM CHLORIDE 20 MEQ TAB CR PO PRN (09:00)
[2018-09-03] MEDS ORDERED: EPINEPHRINE HCL SYRINGE ONE (13:39)
[2018-09-03] MEDS ORDERED: SODIUM CHLORIDE 0.9% 1000 ML BAG ONE (13:39)
[2018-09-03] MEDS ORDERED: SODIUM CHLORIDE 0.9% INJ 500 ML BAG ONE (13:39)
[2018-09-03] MEDS ORDERED: ETOMIDATE 2 MG/ML 10 ML INJ IV ONE (13:41)
[2018-09-03] MEDS ORDERED: SUCCINYLCHOLINE CHLORIDE 20 MG/ML 10ML VIAL ONE (13:41)
[2018-09-03] MEDS: ENOXAPARIN SOD INJ 40 MG/0.4 ML SYR SC SCH (17:50)
--- NOTE | 2018-09-03 19:20 | Diagnostic Imaging Report ---
EXAMINATION: CHEST SINGLE (PORTABLE) INDICATION: Aspiration, shortness of breath COMPARISON: 08/25/2018 chest x-ray and 08/25/2018 CT of the chest FINDINGS: TUBES and LINES: None. LUNGS: Lungs are not well inflated. Interlobular septi thickening bilaterally with peripheral and bibasilar predominance. PLEURA: Questionable right pleural effusion HEART AND MEDIASTINUM: Cardiac size is moderately enlarged. There are atherosclerotic calcifications within the aorta. BONES AND SOFT TISSUES: No acute osseous lesion. Soft tissues are unremarkable. UPPER ABDOMEN: No free air under the diaphragm. IMPRESSION: Findings in the chest are compatible with known interstitial lung disease which may be associated with fluid overload. Signed by: Dr. Evert Lopez M.D. on 09/03/2018 7:16 PM
--- NOTE | 2018-09-03 23:11 | Progress Note ---
DATE: September 02, 2018 OVERNIGHT: No events. REVIEW OF SYSTEMS: Denies any dizziness or chest pain. Denies any headache or shortness of breath. Denies any leg pain. PHYSICAL EXAMINATION VITAL SIGNS: Reviewed. GENERAL: A tired-appearing man resting in bed. HEENT: Anicteric. CARDIOVASCULAR: Normal S1 and S2. LUNGS: Normal breath sounds. ABDOMEN: Soft and nondistended. He has right-sided ASAD drain with serosanguineous material. EXTREMITIES: Trace edema. SKIN: Dry. PSYCHIATRIC: Flat affect. LABS: Reviewed. MEDICATIONS: Reviewed. ASSESSMENT: This is an 83-year-old man with: 1. Interstitial lung disease with interstitial pneumonia. 2. Acute transaminitis and jaundice. 3. Cholelithiasis, status post laparoscopic cholecystectomy. 4. Choledocholithiasis, status post stent placement in the common bile duct. 5. Physical deconditioning. 6. Sepsis. 7. Peripheral edema. 8. Klebsiella bacteremia. 9. Mild confusion. PLAN 1. Patient is doing fine. 2. MRI of the brain was negative. 3. Replace potassium. 4. Physical therapy. 5. Skilled facility placement. Job#: [id number] VAS
--- NOTE | 2018-09-03 23:14 | Progress Note ---
DATE: September 03, 2018 TIME: 7:00 a.m. OVERNIGHT: No events. REVIEW OF SYSTEMS: Unreliable. PHYSICAL EXAMINATION VITAL SIGNS: Reviewed. GENERAL APPEARANCE: Tired-appearing man resting in bed. HEENT: Anicteric. He has a small amount of white material in the mouth. CARDIOVASCULAR: Normal S1 and S2. LUNGS: Moderate breath sounds. ABDOMEN: Soft. He has right-sided ASAD drain with serosanguineous material. EXTREMITIES: Trace edema. SKIN: Dry. PSYCHIATRIC: Flat affect. LABS: Reviewed. MEDICATIONS: Reviewed. ASSESSMENT: An 83-year-old man with: 1. Interstitial lung disease with interstitial pneumonia. 2. Acute transaminitis and jaundice. 3. Cholelithiasis, status post laparoscopic cholecystectomy. 4. Choledocholithiasis, status post stent placement in common bile duct. 5. Physical deconditioning. 6. Dysphagia. 7. Overall thrush. 8. Hypokalemia. 9. Sepsis. 10. Peripheral edema. 11. Thrombocytopenia. 12. Klebsiella bacteremia. PLAN 1. Continue chronic care. 2. Physical therapy. 3. Nystatin swish and swallow. 4. ASAD drain per surgical team. 5. Replace potassium as appropriate. 6. Improving LFTs. 7. Continue to monitor closely. Job#: [id number] DAWIT
--- NOTE | 2018-09-03 23:17 | Progress Note ---
DATE: September 01, 2018 TIME: 7:00 a.m. OVERNIGHT: No events. REVIEW OF SYSTEMS: Unreliable. PHYSICAL EXAMINATION VITAL SIGNS: Reviewed. GENERAL APPEARANCE: A tired-appearing man resting in bed. HEENT: Anicteric. CARDIOVASCULAR: Normal S1 and S2. LUNGS: Moderate breath sounds. ABDOMEN: Soft and nondistended. He has right-sided ASAD drain in place. EXTREMITIES: No edema. SKIN: Dry. PSYCHIATRIC: Flat affect. NEUROLOGICAL: Alert, awake. LABS: Reviewed. MEDICATIONS: Reviewed. ASSESSMENT: An 83-year-old man; 1. Interstitial lung disease with interstitial pneumonia. 2. Acute transaminitis and jaundice. 3. Cholelithiasis status post laparoscopic cholecystectomy. 4. Choledocholithiasis status post stent placement in the common bile duct. 5. Physical deconditioning. 6. Sepsis. 7. Peripheral edema. 8. Thrombocytopenia. 9. Klebsiella bacteremia. PLAN 1. Replace potassium. 2. Continue to follow LFTs as they improve. 3. Drain per surgical team. 4. Physical therapy. Job#: [id number] RTY
[2018-09-03] MEDS ORDERED: VANCOMYCIN 1GM/NS 250 ML 250 ML IV SCH (23:30)
[2018-09-03] MEDS ORDERED: NOREPINEPHRINE 8 MG/D5W 250 ML 250 ML ONE (23:35)
[2018-09-03 23:47] LABS: ABG HCO3 12 mmol/L (23-28); ABG PCO2 23 mmHg (41-51); ABG PH 7.33 (7.31-7.41); ABG PO2 101 mmHg (80-105)
[2018-09-03] MEDS: AZTREONAM 1 GM/NS 50 ML 50 ML IV SCH (23:49)
[2018-09-04] VITALS (88 sets, daily range): BP systolic 40–152; BP diastolic 21–102
[2018-09-04 00:03] LABS: BASOPHILS # (AUTO) 0.1 (0.0-0.1); BASOPHILS % 0.4 % (0.0-1.0); EOSINOPHILS % 0.1 % (0.0-6.0); HEMATOCRIT 32.9 % (38.2-49.6); HEMOGLOBIN 10.5 g/dL (14.0-18.0); LYMPHOCYTES # (AUTO) 1.2 (1.0-3.2); LYMPHOCYTES % 6.6 % (18.0-39.1); MEAN CORPUSCULAR HEMOGLOBIN 32.4 pg (28-32); MEAN CORPUSCULAR HGB CONC 31.9 g/dL (31-35); MONOCYTES # (AUTO) 0.7 (0.2-0.8); MONOCYTES % 3.7 % (4.4-11.3); NEUTROPHILS # (AUTO) 15.1 (2.1-6.9); NEUTROPHILS % 81.2 % (38.7-80.0); PLATELET COUNT 241 x10e3/uL (140-360); RED BLOOD COUNT 3.24 x10e6/uL (4.3-5.7); RED CELL DISTRIBUTION WIDTH 15.8 % (11.7-14.4)
[2018-09-04 00:07] LABS: INR 1.38; PROTHROMBIN TIME 18.1 seconds (11.9-14.5)
[2018-09-04 00:08] LABS: PARTIAL THROMBOPLASTIN TIME 34.3 seconds (23.8-35.5)
[2018-09-04 00:14] LABS: MEAN CORPUSCULAR VOLUME 101.5 fL (81-99)
[2018-09-04 00:16] LABS: ALBUMIN 1.4 g/dL (3.5-5.0); ALBUMIN/GLOBULIN RATIO 0.5 (0.8-2.0); ANION GAP 24.5 mmol/L (8-16); CALCIUM 8.2 mg/dL (8.4-10.2)
--- NOTE | 2018-09-04 00:22 | Diagnostic Imaging Report ---
EXAMINATION: CHEST SINGLE (PORTABLE) INDICATION: Status post intubation. COMPARISON: 09/03/2018 at 1834 hours FINDINGS: TUBES and LINES: Interval placement of endotracheal tube with distal tip 4.4 cm above the mago. LUNGS: Lungs are not well inflated. Worsening interlobular septi thickening bilaterally with peripheral and bibasilar predominance. PLEURA: Questionable right pleural effusion HEART AND MEDIASTINUM: Cardiac size is moderately enlarged. There are atherosclerotic calcifications within the aorta. BONES AND SOFT TISSUES: No acute osseous lesion. Soft tissues are unremarkable. UPPER ABDOMEN: No free air under the diaphragm. IMPRESSION: 1. Interval placement of endotracheal tube in good position. 2. Worsening airspace disease and interlobular septi thickening. Signed by: Dr. Evert Lopez M.D. on 09/04/2018 12:18 AM
[2018-09-04 00:23] LABS: POTASSIUM 4.5 mmol/L (3.5-5.1)
[2018-09-04 00:24] LABS: CREATININE, SERUM 1.35 mg/dL (0.72-1.25)
[2018-09-04] MEDS ORDERED: SODIUM CHLORIDE 0.9% 250ML 250 ML IV ONE (00:30)
[2018-09-04 00:32] LABS: MAGNESIUM 1.8 MG/DL (1.3-2.1)
[2018-09-04 00:39] LABS: CREATINE KINASE MB 1.3 ng/mL (0-5.0)
[2018-09-04] MEDS ORDERED: CEFEPIME HCL 2 GM VIAL IV STA (00:39)
[2018-09-04] MEDS ORDERED: PANTOPRAZOLE 40 MG 10ML VIAL IV STA (00:39)
[2018-09-04] MEDS ORDERED: VANCOMYCIN 1GM/NS 250 ML 250 ML IV STA (00:39)
--- NOTE | 2018-09-04 01:13 | Diagnostic Imaging Report ---
Examination: CT head without contrast Clinical Indication: Confusion. Altered mental status. Technique: Transaxial noncontrast images from the skull base through the vertex were obtained. Sagittal and coronal reformatted images were done. Dose modulation, iterative reconstruction, and/or weight based adjustment of the mA/kV was utilized to reduce the radiation dose to as low as reasonably achievable. Comparison: Head CT dated 09/01/2018. Findings: Scalp: No abnormalities. Bones: Intact. No fractures. No blastic or lytic lesions. Brain sulci: Appropriate for patient's age. Ventricles: No hydrocephalus. . Extra-axial space: No abnormalities. Parenchyma: Again demonstrated are confluent areas of low-attenuation within subcortical and periventricular white matter, nonspecific, but could represent microvascular ischemic disease. No masses, hemorrhage, or acute or chronic cortical based vascular insults. Suprasellar region: No abnormalities. Craniocervical junction: The foramen magnum is patent. No Chiari one malformation. Incidental findings: Atherosclerotic calcification of the cavernous and supraclinoid internal carotid and V4 segments of the bilateral vertebral arteries. Impression: 1. No new acute intracranial finding when compared to prior head CT dated 09/01/2018. 2. Unchanged severe chronic microvascular ischemic change. Signed by: Dr. Yana Mukherjee M.D. on 09/04/2018 1:10 AM
--- NOTE | 2018-09-04 01:26 | Diagnostic Imaging Report ---
EXAM: CT Abdomen and Pelvis WITHOUT contrast INDICATION: Altered mental status COMPARISON: None. TECHNIQUE: Abdomen and pelvis were scanned utilizing a multidetector helical scanner from the lung base to the pubic symphysis without administration of IV contrast. Absence of intravenous contrast decreases sensitivity for detection of focal lesions and vascular pathology. Coronal and sagittal reformations were obtained. Routine protocol was performed. IV CONTRAST: None. ORAL CONTRAST: Water RADIATION DOSE: Total DLP: 774.38 mGy*cm Estimated effective dose: (DLP x 0.015 x size factor) mSv COMPLICATIONS: None FINDINGS: LINES and TUBES: Pancreatic versus biliary stent noted. Left femoral central arterial catheter LOWER THORAX: Evidence of interlobular septi thickening and bibasilar scarring. Trace of left pleural effusion. HEPATOBILIARY: No focal hepatic lesions. There is intra- and extra- hepatic biliary dilation likely post cholecystectomy resevoir effect. Minimal pneumobilia present GALLBLADDER: There are cholecystectomy clips. SPLEEN: No splenomegaly. PANCREAS: No focal masses or ductal dilatation. ADRENALS: No adrenal nodules KIDNEYS/URETERS: No hydronephrosis. No cystic or solid mass lesions. No stones. GI TRACT: No abnormal distention, wall thickening, or evidence of bowel obstruction. Radiodense contrast within the colon results in beam hardening artifact. There are diverticula within the colon without evidence of diverticulitis. Appendix is not clearly identified. There is however no fat stranding or adenopathy in the right lower quadrant to suggest appendicitis. PELVIC ORGANS/BLADDER: Brown catheter is in place decompressing the urinary bladder LYMPH NODES: No lymphadenopathy. VESSELS: There is moderate atherosclerotic disease in the aorta and major arterial branches. Infrarenal IVC filter is present PERITONEUM / RETROPERITONEUM: No free air or fluid. BONES: There are degenerative changes in the lumbar spine. SOFT TISSUES: Unremarkable. IMPRESSION: 1. No acute intra-abdominal or pelvic abnormality. 2. Lung bases demonstrate interstitial edema on a background of interstitial lung disease. 3. Biliary stent, Brown catheter, infrarenal IVC filter and left femoral arterial line present. Signed by: Dr. Evert Lopez M.D. on 09/04/2018 1:23 AM
[2018-09-04] MEDS ORDERED: OCTREOTIDE ACETATE 0.05 MG/ML AMP ONE (01:56)
[2018-09-04] MEDS: DEXTROSE 5% 1,000 ML IV SCH ×2 (02:00→12:11)
[2018-09-04] MEDS ORDERED: MIDAZOLAM HCL 2 MG/2 ML VIAL IV STA (02:02)
[2018-09-04] MEDS ORDERED: SODIUM CHLORIDE 0.9% 1000ML 1,000 ML IV SCH (02:15)
[2018-09-04] MEDS ORDERED: SODIUM CHLORIDE 0.9% 250ML 250 ML ONE (02:16)
[2018-09-04] MEDS: OCTREOTIDE ACETATE 500 MCG in SODIUM CHLORIDE 0.9% 250ML 249 ML IV SCH ×3 (02:26→23:48)
[2018-09-04] MEDS ORDERED: PHYTONADIONE 10 MG/ML AMP SQ ONE ×2 (02:30→09:00)
[2018-09-04] MEDS ORDERED: SODIUM CHLORIDE 0.9% 1000ML 1,000 ML IV STA (02:50)
[2018-09-04] MEDS ORDERED: PHYTONADIONE 10 MG/ML AMP IV ONE ×2 (03:00→09:00)
[2018-09-04] MEDS ORDERED: SODIUM CHLORIDE 0.9% 50ML 50 ML ONE (03:02)
--- NOTE | 2018-09-04 03:25 | Progress Note ---
DATE: September 03, 2018 PULMONARY MEDICINE FOLLOWUP This is coverage for Dr. Alexandre Kimble. SUBJECTIVE: Mr. Mota was seen and examined at bedside. He so far is having reasonable urine out as he had 2.8 liters of urine over 24 hours. He is on 3 liters per minute of oxygen. Oxygen saturation was 98%. His ASAD drain was removed today. He did pass a swallow test yesterday, but is eating with some coughing and choke and therefore nursing has recommended to hold feeding orally for now and he is n.p.o. Patient with 1 bowel movement today. REVIEW OF SYSTEMS: No headache, no double vision. OBJECTIVE GENERAL: No acute distress, but looks weak in bed. VITAL SIGNS: Afebrile. Vital signs noted per electronic record. HEENT: Normocephalic, atraumatic. NECK: Supple. Throat midline. LUNGS: Bilateral air entry, limited, rare rhonchi, not taking deepest breaths. CARDIOVASCULAR: S1 and S2. Small murmur. No rubs or gallops. ABDOMINAL: Soft, nontender. EXTREMITIES: No clubbing, no cyanosis. There is no edema. INTEGUMENT: No rash. No purpura. LABS: Potassium 3.2, bicarbonate 30, BUN 23 , creatinine 0.66. White count 11, hematocrit 42, platelets 187. Alkaline phosphatase 224. AST 50, ALT 72. EKG demonstrated sinus rhythm at 120 beats per minute. IMPRESSION 1. Clinical dysphagia. 2. Odynophagia, on phenol topical. 3. Postoperative state, status post laparoscopic cholecystectomy. 4. Choledocholithiasis, status post stent placement in the common bile duct. 5. Usual interstitial pneumonitis, radiographic. 6. Weakness, deconditioning. 7. Klebsiella bacteremia. PLAN: At this time, we will continue supplemental oxygen. Continue benzonatate and for comfort. However, nursing felt it better to have cautioned regarding the patient's swallow; therefore, patient is n.p.o. We will supplement with some IV fluid. Chest x-ray will be done to make sure there is no significant worsening of fluid status. Let us know how fast we can go on the fluid. Follow up closely. Mobilize the patient with PT. Incentive spirometry for lung expansion. Job#: [id number] VAS
[2018-09-04] MEDS ORDERED: SODIUM CHLORIDE 0.9% 1000ML 1,000 ML IV ONE (04:00)
[2018-09-04] MEDS ORDERED: NOREPINEPHRINE 8 MG/D5W 250 ML 250 ML ONE ×2 (05:09→08:53)
[2018-09-04 05:25] LABS: INR 1.83; PROTHROMBIN TIME 22.6 seconds (11.9-14.5)
[2018-09-04 05:26] LABS: PARTIAL THROMBOPLASTIN TIME 37.9 seconds (23.8-35.5)
[2018-09-04 05:37] LABS: ALBUMIN 1.4 g/dL (3.5-5.0); ALBUMIN/GLOBULIN RATIO 0.5 (0.8-2.0); ANION GAP 23.5 mmol/L (8-16); CALCIUM 8.3 mg/dL (8.4-10.2); CREATININE, SERUM 1.44 mg/dL (0.72-1.25); MAGNESIUM 1.8 MG/DL (1.3-2.1)
[2018-09-04 05:39] LABS: POTASSIUM 5.5 mmol/L (3.5-5.1)
[2018-09-04] MEDS: NYSTATIN SUSPENSION 5 ML UDC PO SCH ×3 (06:00→22:00)
[2018-09-04] MEDS: AZTREONAM 1 GM/NS 50 ML 50 ML IV SCH ×2 (06:00→13:39)
[2018-09-04] MEDS: GUAIFENESIN/DEXTROMETHORPHAN LIQD 5 ML UDC NG SCH ×3 (06:00→22:00)
[2018-09-04] MEDS: METRONIDAZOLE 500MG/NS 100ML 100 ML IV SCH ×4 (06:10→23:49)
--- NOTE | 2018-09-04 07:00 | Diagnostic Imaging Report ---
EXAMINATION: CHEST SINGLE (PORTABLE) INDICATION: Intubated COMPARISON: 09/03/2018 chest x-ray and 08/25/2018 CT of the chest FINDINGS: TUBES and LINES: Endotracheal and nasogastric tube present in good position. LUNGS: Lungs are not well inflated. Interlobular septi thickening bilaterally with peripheral and bibasilar predominance. PLEURA: Questionable right pleural effusion HEART AND MEDIASTINUM: Cardiac size is moderately enlarged. There are atherosclerotic calcifications within the aorta. BONES AND SOFT TISSUES: No acute osseous lesion. Soft tissues are unremarkable. UPPER ABDOMEN: No free air under the diaphragm. IMPRESSION: Stable known interstitial lung disease which is associated with fluid overload. Signed by: Dr. Evert Lopez M.D. on 09/04/2018 6:57 AM
[2018-09-04 07:01] LABS: BASOPHILS # (AUTO) 0.1 (0.0-0.1); BASOPHILS % 0.2 % (0.0-1.0); HEMOGLOBIN 10.8 g/dL (14.0-18.0); LYMPHOCYTES # (AUTO) 1.4 (1.0-3.2); LYMPHOCYTES % 4.8 % (18.0-39.1); MEAN CORPUSCULAR HEMOGLOBIN 32.6 pg (28-32); MEAN CORPUSCULAR HGB CONC 29.2 g/dL (31-35); MEAN CORPUSCULAR VOLUME 111.8 fL (81-99); MONOCYTES # (AUTO) 0.7 (0.2-0.8); MONOCYTES % 2.4 % (4.4-11.3); NEUTROPHILS # (AUTO) 25.5 (2.1-6.9); NEUTROPHILS % 89.7 % (38.7-80.0); PLATELET COUNT 196 x10e3/uL (140-360); RED BLOOD COUNT 3.31 x10e6/uL (4.3-5.7); RED CELL DISTRIBUTION WIDTH 15.9 % (11.7-14.4)
[2018-09-04 07:25] LABS: BILIRUBIN,URINE 2+ (NEGATIVE); CLARITY,URINE CLOUDY (CLEAR); COLOR,URINE AMBER (YELLOW); KETONES,URINE NEGATIVE (NEGATIVE); LEUKOCYTE ESTERASE ,URINE NEGATIVE (NEGATIVE); NITRITE,URINE NEGATIVE (NEGATIVE); PROTEIN,URINE DIPSTICK 2+ (NEGATIVE); URINE UROBILINOGEN 1 mg/dL (0.2 - 1)
[2018-09-04 07:37] LABS: AMORPHOUS SEDIMENT,URINE MODERATE (FEW); BACTERIA,URINE FEW /HPF; EPITHELIAL CELLS,URINE FEW /LPF
[2018-09-04 07:52] LABS: BAND NEUTROPHILS % (MANUAL) 16 %; LYMPHOCYTES % (MANUAL) 8 % (19-48); METAMYELOCYTES % (MANUAL) 2 % (0-0); MONOCYTES % (MANUAL) 4 % (3.4-9.0); NEUTROPHILS % (MANUAL) 70 % (40-74); PLATELET ESTIMATE ADEQUATE; PLATELET MORPHOLOGY COMMENT NORMAL; RBC MORPHOLOGY COMMENT NORMAL
[2018-09-04] MEDS: LORATADINE 10 MG TAB PO SCH (08:05)
[2018-09-04] MEDS: ASPIRIN 81 MG CHEW TAB PO SCH (08:05)
[2018-09-04] MEDS: BENZONATATE 100 MG CAP PO SCH ×3 (08:05→21:00)
[2018-09-04] MEDS: (Mirabegron (Myrbetriq) 50 MG) PO SCH (08:05)
[2018-09-04] MEDS: MIDODRINE 2.5 MG TAB PO SCH ×3 (08:09→16:18)
[2018-09-04] MEDS: PANTOPRAZOLE 40 MG 10ML VIAL IV SCH ×2 (08:09→16:18)
[2018-09-04] MEDS: DEXMEDETOMIDINE HCL 200 MCG in SODIUM CHLORIDE 0.9% 50ML 48 ML IV PRN (09:17)
[2018-09-04] MEDS: NOREPINEPHRINE INJ 4MG/4ML 8 MG in DEXTROSE 5% 250ML 250 ML IV SCH ×5 (09:17→22:30)
[2018-09-04] MEDS ORDERED: SODIUM CHLORIDE 0.9% 500ML 500 ML IV ONE (09:30)
[2018-09-04] MEDS ORDERED: MANNITOL 25% 12.5GM/50 ML VIAL IV NR (13:30)
[2018-09-04] MEDS: SODIUM BICARBONATE 8.4% SYRING 150 ML in DEXTROSE 5% 1,000 ML IV SCH (13:39)
--- NOTE | 2018-09-04 14:53 | Progress Note ---
DATE: September 04, 2018 TIME: 07:35 a.m. OVERNIGHT: Patient intubated overnight. Became unresponsive, intubated overnight, moved to the ICU. LFTs have markedly worsened. REVIEW OF SYSTEMS: Unobtainable. PHYSICAL EXAMINATION VITAL SIGNS: Reviewed. GENERAL: A tired-appearing man resting in bed. HEENT: Atraumatic. ET tube in place. CARDIOVASCULAR: Normal S1 and S2. LUNGS: He has reduced breath sounds. ABDOMEN: Soft, nondistended. He has a right abdominal dressing in place. Patient has rectal tube in place with some blood present. EXTREMITIES: No edema. SKIN: Yellow, jaundiced. PSYCHIATRIC: Unable to assess. NEUROLOGIC: Not interactive. LABS: Reviewed. MEDICATIONS: Reviewed. ASSESSMENT: An 83-year-old man with: 1. Acute respiratory failure. 2. Fulminant hepatitis. 3. Septic shock. 4. Acute kidney injury. 5. Urinary tract infection. 6. Interstitial lung disease with interstitial pneumonia. 7. Choledocholithiasis, status post stent placement in common bile duct. 8. Cholelithiasis, status post laparoscopic cholecystectomy. 9. Physical deconditioning. 10. Peripheral edema. 11. Thrombocytopenia. 12. Klebsiella bacteremia. PLAN 1. Continue pressors. 2. Bolus fluids now. 3. Patient has fulminant hepatitis, may need drain to the biliary system, defer to surgical team. 4. Obtain stool for C. diff. 5. Empiric treatment for possible C. diff infection. 6. Continue the broad-spectrum antibiotics. 7. Consult nephrology. 8. Recheck labs this afternoon. Monitor closely in the ICU. Critical care time more than 35 minutes. Followup lab tests and I have discussed case with and daughter at bedside in detail. Job#: [id number] MARIA LUZ
--- NOTE | 2018-09-04 16:06 | Diagnostic Imaging Report ---
EXAMINATION: CHEST XRAY LINE PLACEMENT INDICATION: PICC position COMPARISON: 09/03/2018 chest x-ray and 08/25/2018 CT of the chest FINDINGS: TUBES and LINES: Interval placement of left sided PICC which terminates near the cavoatrial junction. Endotracheal and nasogastric tube present in good position. LUNGS: Lungs are not well inflated. Interlobular septi thickening bilaterally with peripheral and bibasilar predominance, as before. PLEURA: Possible small bilateral pleural effusions. HEART AND MEDIASTINUM: Cardiac size is moderately enlarged. There are atherosclerotic calcifications within the aorta. BONES AND SOFT TISSUES: No acute osseous lesion. Soft tissues are unremarkable. UPPER ABDOMEN: No free air under the diaphragm. IMPRESSION: Lines and tubes as above. Interval placement of left sided PICC in satisfactory position. No evidence of pneumothorax. Persistent findings of interstitial lung disease with associated interstitial edema and possible small bilateral pleural effusions. Signed by: Dr. Adamaris Thompson MD on 09/04/2018 4:03 PM
[2018-09-04 16:32] LABS: BASOPHILS # (AUTO) 0.1 (0.0-0.1); BASOPHILS % 0.3 % (0.0-1.0); HEMATOCRIT 31.2 % (38.2-49.6); HEMOGLOBIN 10.1 g/dL (14.0-18.0); LYMPHOCYTES # (AUTO) 1.5 (1.0-3.2); LYMPHOCYTES % 5.8 % (18.0-39.1); MEAN CORPUSCULAR HEMOGLOBIN 32.4 pg (28-32); MEAN CORPUSCULAR HGB CONC 32.4 g/dL (31-35); MONOCYTES # (AUTO) 0.3 (0.2-0.8); MONOCYTES % 1.3 % (4.4-11.3); NEUTROPHILS # (AUTO) 23.9 (2.1-6.9); NEUTROPHILS % 91.5 % (38.7-80.0); PLATELET COUNT 207 x10e3/uL (140-360); RED BLOOD COUNT 3.12 x10e6/uL (4.3-5.7); RED CELL DISTRIBUTION WIDTH 15.7 % (11.7-14.4)
--- NOTE | 2018-09-04 16:42 | Consultation ---
DATE OF CONSULTATION: September 04, 2018 RENAL CONSULTATION REQUESTING PHYSICIAN: Dr. Tomasz Mata. REASONS FOR CONSULTATION 1. Elevated serum creatinine. 2. Decreased urine output. 3. Fluid, electrolyte, and acid-base management. 4. Hyperkalemia. 5. Acidosis. HISTORY OF PRESENT ILLNESS: This is an 83-year-old man with history of; 1. Diverticulitis. 2. Osteoarthritis. 3. Gastroesophageal reflux disease. 4. Interstitial lung disease. 5. Polycythemia. 6. Left knee replacement. 7. Carpal tunnel surgery. 8. Spinal surgery. 9. Colon surgery. 10. Hip fracture. 11. Alcohol use. Patient was initially admitted to [facility] for sepsis, abnormal LFTs. He was found to have gangrenous gallbladder and is status post lap randy. He apparently became unresponsive yesterday and is currently in the ICU, intubated and on the ventilator. He is on pressor support. Family and nurse at bedside. Nephrology consultation was requested for elevated serum creatinine; fluid, electrolyte and acid-base management, and low urine output. His labs today show a serum potassium of 5.5 with bicarbonate of 15, BUN of 39, and creatinine of 1.4. Serum phosphorus was 8.0. Serum creatinine level on admission was 0.9. As the patient is currently intubated and on the ventilator, unable to provide any history or review of systems. All history is as per chart review of the patient's nurse. PAST MEDICAL HISTORY: As per HPI. PAST SURGICAL HISTORY: As per HPI. ALLERGIES: PER MAR. MEDICATIONS: Per MAR. SOCIAL HISTORY, FAMILY HISTORY, AND REVIEW OF SYSTEMS: Unobtainable as the patient is presently intubated and on the ventilator. PHYSICAL EXAMINATION GENERAL: The patient is intubated and on the ventilator. VITAL SIGNS: Blood pressure is 92/60, pulse is 87. Input and output noted. HEENT: Head atraumatic, normocephalic. NECK: Supple. CHEST: Lungs with coarse breath sounds bilaterally. CARDIOVASCULAR: S1 and S2 heard. ABDOMEN: Soft. EXTREMITIES: No edema. NEUROLOGIC: On the ventilator. PSYCHIATRIC: Unable to assess. GENITOURINARY: Brown catheter in place. LABS: Serum sodium is 142, potassium 5.5, chloride 109, bicarbonate 15, BUN is 39, creatinine is 1.4, calcium is 8.3, phosphorus 8.0, magnesium 1.8. Increased LFTs. Hemoglobin is 10.8, WBC is 28.3, platelet count is 196. IMAGING: Chest x-ray and CT abdomen findings noted. ASSESSMENT 1. Acute kidney injury. 2. Hyperkalemia. 3. Acidosis. 4. Decreased urine output. 5. Respiratory failure. 6. Increased liver function tests. 7. ? septic shock. 8. Anemia. 9. Hyperphosphatemia. PLAN 1. Differential for acute kidney injury includes prerenal azotemia versus acute tubular necrosis. There was no hydronephrosis on CT abdomen. We will continue to monitor renal indices and urine output. We will check UA plus microscopic analysis, urine sodium, and urine creatinine levels. 2. Strict I's and O's on a daily basis. 3. Renally dose all the medications. 4. Avoid NSAIDs except for aspirin. 5. No TONYA inhibitors/ARB for now. 6. Volume status, no peripheral edema on exam. We will change IV fluids to D5 with 3 amps of sodium bicarbonate as the patient also has acidosis. 7. Hyperkalemia in the setting of acute kidney injury and acidosis. Sodium bicarbonate as above. We will repeat BMP and will medically treat hyperkalemia if persists. 8. Monitor serum calcium, phosphorus, and magnesium levels. We will need phosphorus binders when patient is on feeds. 9. Vent per pulmonary for respiratory failure. 10. Monitor LFTs. 11. Panculture plus antibiotics per primary team/infectious disease. 12. Monitor blood pressure plus IV fluids with sodium carbonate as above plus continue pressor support. 13. Monitor H and H levels and WBC count. 14. Dose with Mannitol IV x1. 15. We will check urine sodium and urine creatinine levels. 16. Presently, there is no acute indication for hemodialysis. We will continue to closely monitor his renal function, volume status, serum electrolytes, urine output, and acid-base status. 17. Patient is critically ill with guarded prognosis. Thanks for this interesting consult. We will continue to closely follow the patient. Please do not hesitate to call us for any further questions. Job#: [id number] VALERI
[2018-09-04 16:45] LABS: ANION GAP 11.5 mmol/L (8-16); CALCIUM 7.1 mg/dL (8.4-10.2); CREATININE, SERUM 1.68 mg/dL (0.72-1.25); PHOSPHORUS 4.7 MG/DL (2.3-4.7); POTASSIUM 4.5 mmol/L (3.5-5.1)
[2018-09-04] MEDS ORDERED: VASOPRESSIN 100 UNIT in DEXTROSE 5% 100ML 100 ML IV PRN (16:45)
[2018-09-04 16:51] LABS: MAGNESIUM 1.1 MG/DL (1.3-2.1)
[2018-09-04] MEDS ORDERED: LEVOFLOXACIN 750MG/D5W 150ML 150 ML IV ONE (17:00)
[2018-09-04] MEDS: LINEZOLID 600 MG/D5W 300ML 300 ML IV SCH (17:37)
[2018-09-04] MEDS ORDERED: MAGNESIUM SULFATE 2GM/50ML 50 ML IV ONE (17:45)
[2018-09-04] MEDS ORDERED: CALCIUM GLUCONATE 10% INJ 4.65 MEQ in SODIUM CHLORIDE 0.9% 50ML 50 ML IV ONE (17:45)
[2018-09-04 18:53] LABS: CREATININE,URINE RANDOM 50.62 mg/dL (63-166)
[2018-09-04] MEDS: MIDAZOLAM HCL 25 MG in SODIUM CHLORIDE 0.9% 50ML 45 ML IV PRN (20:52)
[2018-09-04] MEDS: MEROPENEM 500MG 500 MG in SODIUM CHLORIDE 0.9% 50ML 50 ML IV SCH (21:22)
--- NOTE | 2018-09-04 21:26 | Consultation ---
DATE OF CONSULTATION: September 04, 2018 INFECTIOUS DISEASE CONSULT ATTENDING PHYSICIAN: Dr. Adolfo Tolbert. REASON FOR CONSULTATION: Pneumonia. Thank you, Dr. Mata for asking me to see this patient. HISTORY: The patient is an 83-year-old man referred for pneumonia. He is unable to give history because he is sedated and intubated. Therefore information was obtained from the family and supplemented by chart review. The patient was admitted through the emergency department with bacteria and lobar pneumonia. The patient presented to the emergency department on August 25, 2018 with abdominal pain during lunch. In the emergency department, he was noted to have normal vital signs. Laboratory studies showed blood leukocyte count of 11,400, AST 779, ALT 504, alk phos 221, and total bilirubin 4.3. Chest x-ray showed bilateral scattered airspace opacities, but the chest CT scan showed fibrotic changes. Later abdominal ultrasound showed gallstones and sludge and MRCP showed features of choledocholithiasis. The patient was evaluated by the GI service and underwent ERCP with sphincterotomy, stone extraction, and bile duct stent placement on August 27, 2018. On August 30, 2018, the patient underwent laparoscopic cholecystectomy. He was treated with vancomycin and cefepime until September 02, 2018. Review of culture result showed the blood culture on August 25, 2018 grew Klebsiella pneumoniae. The patient was stabilized until last night, when he quickly decompensated. PAST MEDICAL HISTORY: Interstitial lung disease, chronic hypoxemic respiratory failure, gastroesophageal reflux disease, spinal stenosis, and recent VRE bacteremia. PAST SURGICAL HISTORY: Partial colectomy for recurrent diverticulitis, back surgery for spinal stenosis, open reduction and internal fixation of right hip fracture, and bilateral total knee arthroplasty. ALLERGIES: IODINE. MEDICATIONS: See MAR. The current antibiotics are Azactam 1 g IV piggyback q.8 hours, metronidazole 500 mg IV piggyback q.6 hours, and vancomycin 1 g IV piggyback q.24 hours. IMMUNIZATION: The patient received influenza vaccine in July 2018. Also received pneumococcal vaccine in the past. FAMILY HISTORY: Noncontributory. SOCIAL HISTORY: He drinks alcohol occasionally. He quit smoking cigarettes in 1984. REVIEW OF SYSTEMS: The patient has rectal bleed. Patient has markedly decreased urine output per nursing staff. PHYSICAL EXAMINATION GENERAL: Critically ill. VITALS: T-max 97.9, pulse 91, respiratory rate 24, blood pressure 78/54, weight 177 pounds. HEENT: Atraumatic. There is no icterus or injection of conjunctivae. There is no ear or nasal discharge. Orally intubated. NECK: Supple. No meningismus. LUNGS: Rhonchi bilaterally. HEART: Normal S1 and S2. ABDOMEN: The small abdominal incisions are clean and there is no redness or discharge. Soft. RECTAL: There is fecal management system in place draining jada blood. Digital rectal examination deferred. EXTREMITIES: There is edema of the upper limbs with weeping. SKIN: Old ecchymosis of the upper limb. CHARGE ACCOUNT CLERK: Slightly sedated. LABORATORY AND DIAGNOSTICS: WBC 26,180, hemoglobin 10.1, platelets 207,000, neutrophils 91.5, lymph 5.8, mono 1.3, eosinophils 0, basophils 0.3. BUN 48, creatinine 1.68, AST 1158, ALT 547, alk phos 440, total bilirubin 4.5. Repeat blood culture is pending. Repeat urine culture is also pending. IMPRESSION 1. Septic shock, not present on admission. The source is likely cholangitis, although bloodstream infection cannot be excluded. 2. cholelithiasis status post laparoscopic cholecystectomy. 3. Acute rectal bleed. 4. Yrgsc-ut-wteijio hypoxemic respiratory failure secondary to sepsis. 5. Acute kidney injury. 6. Interstitial lung disease. PLAN 1. Change antibiotics to meropenem 500 mg IV piggyback q.12 hours, linezolid 600 mg IV piggyback q.12 hours, and levofloxacin 750 mg IV piggyback once. Continue pressors as prescribed. 2. Await GI followup. Renal input has been noted. 3. Check culture results. Job#: [id number] RTY ZULLY
[2018-09-05] VITALS (103 sets, daily range): BP systolic 67–159; BP diastolic 39–88
[2018-09-05] MEDS ORDERED: PHYTONADIONE 10 MG/ML AMP IV ONE (01:15)
[2018-09-05] MEDS ORDERED: SODIUM CHLORIDE 0.9% 1000ML 1,000 ML ONE (01:30)
[2018-09-05] MEDS ORDERED: SODIUM CHLORIDE 0.9% 50ML 50 ML ONE (01:31)
[2018-09-05] MEDS: SODIUM BICARBONATE 8.4% SYRING 150 ML in DEXTROSE 5% 1,000 ML IV SCH ×2 (04:10→13:51)
--- NOTE | 2018-09-05 04:24 | Progress Note ---
DATE: September 04, 2018 Covering and doing rounds on behalf of Dr. Kimble. SUBJECTIVE: The patient is an 83-year-old, required intubation, became unresponsive by the time the NG tube that the nurse was trying to place. He has a history of pulmonary fibrosis, GERD, osteoarthritis, chronic back pain, and recurrent diverticulitis, status post colonic resection. The patient underwent a CRP due to jaundice with calculus removed and then subsequently on August 30, had cholecystectomy and was found to have cholangitis. The patient was intubated 2 days ago and he is still intubated. When he is off sedation, he is able to respond. OBJECTIVE VITALS: Pulse 78, oxygen saturation 100, blood pressure 99/59, and afebrile. He is on assist control of 16, FiO2 50, tidal volume 450, and PEEP of 0. HEENT: He has oral intubation, NG tube, jaundice. Atraumatic. LUNGS: There are crackles in both lungs. HEART: No murmurs. ABDOMEN: Soft. EXTREMITIES: Trace edema. LABORATORY DATA: In terms of the lab, WBC 28.38 and hemoglobin 10.8. Potassium 5.5, BUN 39, creatinine 1.44, lactic acid 146.8, phosphorus 8, total bilirubin 4.5, AST 1158, ALT 547, alkaline phosphatase 440, and albumin 1.4. DIAGNOSTIC DATA: The chest x-ray disclosed signs compatible with fluid overload, but also with a history of pulmonary fibrosis. Sputum was sent for C. diff, which was negative. IMPRESSION 1. Acute respiratory failure. 2. Multifocal pneumonia. 3. Heart failure. 1. Sepsis. 2. Cholangitis. 3. Hepatitis type of liver reaction. 4. He has acute kidney injury. 5. History of lung fibrosis. 6. Gastroesophageal reflux disease. 7. Urinary tract infection in the past. RECOMMENDATIONS: He is to continue with current ventilatory settings. Patient is on Protonix 40 mg IV, Flagyl 500 q.6h., Azactam 1 g q.8h. IV, and vancomycin 1 gram q.24h. He is getting Levophed. He is on Precedex for sedation. He is having some rectal bleeding, so we decided to stop the Lovenox. We will put for DVT prophylaxis SCDs. Recommendation is to continue with current ventilatory settings with current medications and to repeat ABGs, chest x-ray, chemistry, and CBC sometime tomorrow. Job#: [id number] KELLY
[2018-09-05] MEDS: LINEZOLID 600 MG/D5W 300ML 300 ML IV SCH ×2 (04:30→17:00)
[2018-09-05] MEDS: MIDAZOLAM HCL 25 MG in SODIUM CHLORIDE 0.9% 50ML 45 ML IV PRN (04:35)
[2018-09-05 05:29] LABS: INR 1.39; PROTHROMBIN TIME 18.2 seconds (11.9-14.5)
[2018-09-05 05:36] LABS: BASOPHILS # (AUTO) 0.1 (0.0-0.1); BASOPHILS % 0.4 % (0.0-1.0); HEMATOCRIT 27.5 % (38.2-49.6); HEMOGLOBIN 9.2 g/dL (14.0-18.0); LYMPHOCYTES # (AUTO) 0.8 (1.0-3.2); LYMPHOCYTES % 3.5 % (18.0-39.1); MEAN CORPUSCULAR HEMOGLOBIN 32.4 pg (28-32); MEAN CORPUSCULAR HGB CONC 33.5 g/dL (31-35); MEAN CORPUSCULAR VOLUME 96.8 fL (81-99); MONOCYTES # (AUTO) 0.4 (0.2-0.8); MONOCYTES % 1.7 % (4.4-11.3); NEUTROPHILS # (AUTO) 21.2 (2.1-6.9); NEUTROPHILS % 89.1 % (38.7-80.0); PLATELET COUNT 191 x10e3/uL (140-360); RED BLOOD COUNT 2.84 x10e6/uL (4.3-5.7); RED CELL DISTRIBUTION WIDTH 15.6 % (11.7-14.4)
[2018-09-05 05:41] LABS: ANION GAP 11.7 mmol/L (8-16); CREATININE, SERUM 1.26 mg/dL (0.72-1.25); MAGNESIUM 1.4 MG/DL (1.3-2.1); POTASSIUM 3.7 mmol/L (3.5-5.1)
[2018-09-05] MEDS: GUAIFENESIN/DEXTROMETHORPHAN LIQD 5 ML UDC NG SCH ×3 (06:00→22:00)
[2018-09-05] MEDS: NYSTATIN SUSPENSION 5 ML UDC PO SCH ×3 (06:00→22:00)
[2018-09-05 06:14] LABS: CALCIUM 6.6 mg/dL (8.4-10.2)
[2018-09-05] MEDS: METRONIDAZOLE 500MG/NS 100ML 100 ML IV SCH ×3 (06:20→18:00)
[2018-09-05] MEDS ORDERED: MAGNESIUM SULFATE 2GM/50ML 50 ML IV ONE (06:45)
[2018-09-05] MEDS ORDERED: POTASSIUM CHLORIDE 20MEQ/100ML 100 ML IV ONE (06:45)
[2018-09-05 06:55] LABS: ABG HCO3 25 mmol/L (23-28); ABG PCO2 31 mmHg (41-51); ABG PH 7.51 (7.31-7.41); ABG PO2 89 mmHg (80-105)
--- NOTE | 2018-09-05 07:06 | Diagnostic Imaging Report ---
PROCEDURE: CHEST SINGLE (PORTABLE) COMPARISON: 09/04/2018. INDICATIONS: INTUBATED FINDINGS: Refer to conclusion CONCLUSION: Endotracheal tube, enteric tube, and left upper extremity PICC are unchanged in position. Persistent low lung volumes with coarse prominence of the pulmonary interstitium, compatible with interstitial lung disease with superimposed pulmonary edema as previously discussed. Stable small bilateral pleural effusions. No new air space consolidation or pneumothorax. Dictated by: Ellis Matamoros M.D. on 09/05/2018 at 7:14 Electronically approved by: Ellis Matamoros M.D. on 09/05/2018 at 7:14
[2018-09-05] MEDS: DEXMEDETOMIDINE HCL 200 MCG in SODIUM CHLORIDE 0.9% 50ML 48 ML IV PRN (07:28)
[2018-09-05] MEDS: (Mirabegron (Myrbetriq) 50 MG) PO SCH (09:00)
[2018-09-05] MEDS: PANTOPRAZOLE 40 MG 10ML VIAL IV SCH ×2 (09:00→17:00)
[2018-09-05] MEDS: BENZONATATE 100 MG CAP PO SCH ×3 (09:00→21:00)
[2018-09-05] MEDS: ASPIRIN 81 MG CHEW TAB PO SCH (09:00)
[2018-09-05] MEDS: LORATADINE 10 MG TAB PO SCH (09:00)
[2018-09-05 09:09] LABS: BAND NEUTROPHILS % (MANUAL) 4 %; BLAST CELLS % MANUAL 2; LYMPHOCYTES % (MANUAL) 5 % (19-48); METAMYELOCYTES % (MANUAL) 2 % (0-0); MONOCYTES % (MANUAL) 2 % (3.4-9.0); MYELOCYTES % (MANUAL) 2 % (0-0); NEUTROPHILS % (MANUAL) 83 % (40-74); PLATELET ESTIMATE ADEQUATE; PLATELET MORPHOLOGY COMMENT FEW LARGE
[2018-09-05 09:10] LABS: ANISOCYTOSIS SLIGHT; HYPOCHROMASIA SLIGHT
[2018-09-05 09:11] LABS: RBC MORPHOLOGY COMMENT NORMAL
[2018-09-05] MEDS: MEROPENEM 500MG 500 MG in SODIUM CHLORIDE 0.9% 50ML 50 ML IV SCH ×2 (09:40→21:00)
[2018-09-05] MEDS: MIDODRINE 2.5 MG TAB PO SCH ×3 (10:00→18:00)
[2018-09-05] MEDS: OCTREOTIDE ACETATE 500 MCG in SODIUM CHLORIDE 0.9% 250ML 249 ML IV SCH ×2 (11:00→22:00)
[2018-09-05] MEDS ORDERED: SODIUM CHLORIDE 0.9% 250ML 0 ML ONE (11:11)
[2018-09-05] MEDS ORDERED: CALCIUM GLUCONATE 10% INJ 9.3 MEQ in SODIUM CHLORIDE 0.9% 100 ML 100 ML IV ONE (11:15)
[2018-09-05] MEDS ORDERED: FUROSEMIDE INJ 10 MG/ML 4 ML VIAL IV ONE (11:15)
[2018-09-05] MEDS ORDERED: SODIUM CHLORIDE 0.9% 250ML 250 ML ONE ×2 (11:33→19:49)
[2018-09-05] MEDS: ALBUMIN 25% 25GM 0.25 GM/ML BTL IV SCH ×3 (13:51→22:00)
[2018-09-05] MEDS ORDERED: ALBUMIN 25% 25GM 0.25 GM/ML BTL IV SCH (14:00)
[2018-09-05 16:06] LABS: BASOPHILS # (AUTO) 0.1 (0.0-0.1); BASOPHILS % 0.3 % (0.0-1.0); EOSINOPHILS % 0.1 % (0.0-6.0); HEMATOCRIT 22.9 % (38.2-49.6); HEMOGLOBIN 7.6 g/dL (14.0-18.0); LYMPHOCYTES # (AUTO) 0.7 (1.0-3.2); LYMPHOCYTES % 3.9 % (18.0-39.1); MEAN CORPUSCULAR HEMOGLOBIN 32.2 pg (28-32); MEAN CORPUSCULAR HGB CONC 33.2 g/dL (31-35); MONOCYTES # (AUTO) 0.3 (0.2-0.8); MONOCYTES % 1.6 % (4.4-11.3); NEUTROPHILS # (AUTO) 15.1 (2.1-6.9); NEUTROPHILS % 87.4 % (38.7-80.0); PLATELET COUNT 129 x10e3/uL (140-360); RED BLOOD COUNT 2.36 x10e6/uL (4.3-5.7); RED CELL DISTRIBUTION WIDTH 15.7 % (11.7-14.4)
[2018-09-05 16:20] LABS: INR 1.36; PARTIAL THROMBOPLASTIN TIME 36.2 seconds (23.8-35.5); PROTHROMBIN TIME 17.9 seconds (11.9-14.5)
[2018-09-05] MEDS ORDERED: SODIUM CHLORIDE 0.9% 250ML 250 ML IV ONE (17:00)
[2018-09-05] MEDS: NOREPINEPHRINE 8 MG/D5W 250 ML 250 ML IV SCH (19:30)
[2018-09-06] VITALS (91 sets, daily range): BP systolic 83–155; BP diastolic 51–101
[2018-09-06] MEDS ORDERED: PANTOPRAZOLE 40 MG 10ML VIAL IV STA (00:34)
[2018-09-06] MEDS: PANTOPRAZOL 40MG/SOD CHL 0.9% 50 ML IV SCH ×5 (02:00→21:27)
[2018-09-06 02:18] LABS: INR 1.34; PROTHROMBIN TIME 17.7 seconds (11.9-14.5)
[2018-09-06 02:19] LABS: PARTIAL THROMBOPLASTIN TIME 38.2 seconds (23.8-35.5)
[2018-09-06] MEDS: OCTREOTIDE ACETATE 500 MCG in SODIUM CHLORIDE 0.9% 250ML 249 ML IV SCH ×3 (02:45→20:45)
[2018-09-06] MEDS: LINEZOLID 600 MG/D5W 300ML 300 ML IV SCH ×2 (05:00→07:34)
--- NOTE | 2018-09-06 05:29 | Diagnostic Imaging Report ---
EXAM: CHEST SINGLE (PORTABLE), AP 1 view INDICATION: Respiratory failure COMPARISON: AP view of the chest September 04, 2018 FINDINGS: LINES/TUBES: Tip of the endotracheal tube is within a centimeter of the mago. Stable position of left approach PICC. Stable position of nasal/orogastric tube. LUNGS: Stable bilateral interstitial and basilar opacities. PLEURA: Suspected small bilateral pleural effusions. HEART AND MEDIASTINUM: Stable appearance BONES AND SOFT TISSUES: No acute findings. IMPRESSION: The endotracheal tube is within a centimeter of the mago. Stable appearance of the lungs. Signed by: Dr. Parul Smith M.D. on 09/06/2018 5:26 AM
[2018-09-06 05:39] LABS: HEMATOCRIT 20.9 % (38.2-49.6); HEMOGLOBIN 7.1 g/dL (14.0-18.0); MEAN CORPUSCULAR HEMOGLOBIN 31.1 pg (28-32); MEAN CORPUSCULAR VOLUME 91.7 fL (81-99); PLATELET COUNT 106 x10e3/uL (140-360); RED BLOOD COUNT 2.28 x10e6/uL (4.3-5.7); RED CELL DISTRIBUTION WIDTH 15.7 % (11.7-14.4)
[2018-09-06] MEDS: METRONIDAZOLE 500MG/NS 100ML 100 ML IV SCH ×2 (06:00)
[2018-09-06] MEDS: GUAIFENESIN/DEXTROMETHORPHAN LIQD 5 ML UDC NG SCH ×4 (06:00→21:36)
[2018-09-06] MEDS: NYSTATIN SUSPENSION 5 ML UDC PO SCH ×4 (06:00→21:36)
[2018-09-06 08:30] LABS: ALANINE AMINOTRANSFERASE 450 IU/L (0-55); ALBUMIN 2.9 g/dL (3.5-5.0); ALBUMIN/GLOBULIN RATIO 1.9 (0.8-2.0); ALKALINE PHOSPHATASE 157 IU/L (40-150); ANION GAP 18.6 mmol/L (8-16); BLOOD UREA NITROGEN 35 mg/dL (7-26); BUN/CREATININE RATIO 37 (6-25); CARBON DIOXIDE 25 mmol/L (22-29); CHLORIDE 93 mmol/L (98-107); CREATININE, SERUM 0.94 mg/dL (0.72-1.25); EST GLOMERULAR FILTRATION RATE > 60 ML/MIN (60-); GLUCOSE 128 mg/dL (74-118); SODIUM 134 mmol/L (136-145)
[2018-09-06 08:35] LABS: CALCIUM 6.8 mg/dL (8.4-10.2)
[2018-09-06 08:36] LABS: POTASSIUM 2.6 mmol/L (3.5-5.1)
[2018-09-06] MEDS: LORATADINE 10 MG TAB PO SCH (08:42)
[2018-09-06] MEDS: ASPIRIN 81 MG CHEW TAB PO SCH (08:42)
[2018-09-06] MEDS: BENZONATATE 100 MG CAP PO SCH ×3 (08:43→21:00)
[2018-09-06] MEDS: (Mirabegron (Myrbetriq) 50 MG) PO SCH (08:43)
[2018-09-06] MEDS: MIDODRINE 2.5 MG TAB PO SCH ×3 (08:45→16:00)
[2018-09-06] MEDS ORDERED: CALCIUM GLUCONATE 10% INJ 9.3 MEQ in SODIUM CHLORIDE 0.9% 100 ML 100 ML IV ONE (09:00)
[2018-09-06] MEDS ORDERED: POTASSIUM CHLORIDE 20MEQ/100ML 300 ML IV ONE (09:00)
[2018-09-06 09:10] LABS: ALBUMIN 2.9 g/dL (3.5-5.0); BILIRUBIN,DIRECT 3.3 mg/dL (0.0-0.5)
[2018-09-06 09:29] LABS: MAGNESIUM 1.5 MG/DL (1.3-2.1); PHOSPHORUS 2.2 MG/DL (2.3-4.7)
[2018-09-06] MEDS: POTASSIUM CHLORIDE 20MEQ/100ML 100 ML IV SCH ×3 (09:30→13:30)
[2018-09-06] MEDS ORDERED: SODIUM CHLORIDE 0.9% 500ML 500 ML ONE (10:43)
[2018-09-06 11:49] LABS: BAND NEUTROPHILS % (MANUAL) 3 %; LYMPHOCYTES % (MANUAL) 5 % (19-48); MONOCYTES % (MANUAL) 2 % (3.4-9.0); NEUTROPHILS % (MANUAL) 90 % (40-74); NUCLEATED RED BLOOD CELLS 1
[2018-09-06 11:54] LABS: PLATELET ESTIMATE SLIGHTLY DECREASED; PLATELET MORPHOLOGY COMMENT NORMAL
[2018-09-06 11:55] LABS: ANISOCYTOSIS SLIGHT; RBC MORPHOLOGY COMMENT NORMAL
[2018-09-06] MEDS: MEROPENEM 500MG 500 MG in SODIUM CHLORIDE 0.9% 50ML 50 ML IV SCH ×2 (12:00→18:00)
[2018-09-06] MEDS ORDERED: FUROSEMIDE INJ 10 MG/ML 4 ML VIAL IV SCH (13:15)
[2018-09-06] MEDS ORDERED: MAGNESIUM SULFATE 2GM/50ML 50 ML IV ONE (13:15)
[2018-09-06] MEDS ORDERED: POTASSIUM PHOSPHATE 20 MM in SODIUM CHLORIDE 0.9% 250ML 250 ML IV SCH ×2 (13:15→13:30)
[2018-09-06] MEDS ORDERED: FUROSEMIDE INJ 10 MG/ML 4 ML VIAL IV ONE (13:30)
[2018-09-06] MEDS ORDERED: CITRATE OF MAGNESIA 300ML BOTTLE NG ONE (13:30)
[2018-09-06] MEDS ORDERED: SODIUM CHLORIDE 0.9% 250ML 250 ML ONE (15:39)
--- NOTE | 2018-09-06 19:24 | Progress Note ---
DATE: September 05, 2018 TIME OF SERVICE: 7:35 a.m. SUBJECTIVE: Overnight the patient on 2 pressors with maroon colored stool. REVIEW OF SYSTEMS: Unobtainable. PHYSICAL EXAMINATION VITAL SIGNS: Reviewed. GENERAL: A tired-appearing man resting in bed. HEENT: Atraumatic. ET tube in place. CARDIOVASCULAR: Normal S1 and S2. LUNGS: He has reduced breath sounds. ABDOMEN: Soft, nontender and nondistended. He has right abdominal minimal tenderness. EXTREMITIES: No edema. SKIN: Dry. The patient is jaundiced. PSYCHIATRIC: Unable to assess. NEUROLOGIC: Awake. LABS: Reviewed. MEDICATIONS: Reviewed. ASSESSMENT: An 83-year-old man with: 1. Acute respiratory failure. 2. Fulminant hepatitis. 3. Septic shock. 4. Acute kidney injury. 5. Urinary tract infection. 6. Interstitial lung disease with interstitial pneumonia. 7. Choledocholithiasis and cholelithiasis, status post stent placement in bile duct and laparoscopic cholecystectomy. 8. Peripheral edema. 9. Klebsiella bacteremia. 10. disease. 11. Acute gastrointestinal bleed. PLAN 1. Continue ventilator support per pulmonary service. 2. Continue empiric antibiotics. 3. The patient was on plasma. He remains on pressors. Critical care time more than 35 minutes. Job#: [id number]
[2018-09-06] MEDS: NOREPINEPHRINE 8 MG/D5W 250 ML 250 ML IV SCH (19:30)
[2018-09-06 20:34] LABS: INR 1.11; PROTHROMBIN TIME 15.3 seconds (11.9-14.5)
--- NOTE | 2018-09-06 20:36 | Progress Note ---
DATE: September 06, 2018 TIME OF SERVICE: 6:35 a.m. SUBJECTIVE: Overnight the patient received blood products. REVIEW OF SYSTEMS: Unobtainable. PHYSICAL EXAMINATION VITAL SIGNS: Reviewed. GENERAL: A tired-appearing man resting in bed. HEENT: ET tube in place. Atraumatic. CARDIOVASCULAR: Normal S1 and S2. LUNGS: He has reduced breath sounds. ABDOMEN: Soft and mildly tender. EXTREMITIES: No edema. SKIN: Dry. The patient is jaundiced. PSYCHIATRIC: Unable to assess. NEUROLOGIC: Not interactive. LABS: Reviewed. MEDICATIONS: Reviewed. ASSESSMENT: An 83-year-old man with: 1. Acute respiratory failure. 2. Interstitial lung disease with interstitial pneumonia. 3. Septic shock. 4. Acute kidney injury. 5. Urinary tract infection. 6. Choledocholithiasis and cholelithiasis. . 7. Klebsiella bacteremia. 8. Acute gastrointestinal bleed. PLAN 1. Two more units of packed red blood cells and 2 fresh frozen plasma. 2. Continue pressors. 3. White count has improved to 17,000, but hemoglobin has worsened to 7.6. 4. Check labs now. 5. Continue empiric antibiotics. 6. One culture positive for Klebsiella pneumonia in the blood in one of two bottles on 08/25/2018. All other cultures remain negative. 7. Clostridium difficile testing is negative. 8. Plan to recheck labs later this afternoon again and likely will need more blood products. 9. Continue broad-spectrum antibiotics with ____ of Linezolid. 10. Continue and proton pump inhibitor. 11. Critical care time more than 35 minutes. Job#: [id number]
[2018-09-06] MEDS ORDERED: FUROSEMIDE INJ 10 MG/ML 2 ML VIAL ONE (21:24)
[2018-09-06 21:53] LABS: HEMOGLOBIN 10.3 g/dL (14.0-18.0)
[2018-09-06] MEDS ORDERED: PHYTONADIONE 10MG/ML 20 MG in SODIUM CHLORIDE 0.9% 50ML 50 ML IV ONE (22:45)
[2018-09-06] MEDS ORDERED: SODIUM CHLORIDE 0.9% 50ML 50 ML ONE (22:50)
[2018-09-06] MEDS ORDERED: PHYTONADIONE 10MG/ML 2 ML ONE (22:50)
[2018-09-07] VITALS (86 sets, daily range): BP systolic 65–148; BP diastolic 38–96
[2018-09-07] MEDS: MEROPENEM 500MG 500 MG in SODIUM CHLORIDE 0.9% 50ML 50 ML IV SCH ×5 (00:13→23:53)
[2018-09-07] MEDS: PANTOPRAZOL 40MG/SOD CHL 0.9% 50 ML IV SCH ×5 (03:35→20:52)
[2018-09-07] MEDS: LINEZOLID 600 MG/D5W 300ML 300 ML IV SCH ×2 (04:52→17:43)
[2018-09-07 05:13] LABS: INR 1.09; PROTHROMBIN TIME 15.1 seconds (11.9-14.5)
[2018-09-07 05:19] LABS: ALANINE AMINOTRANSFERASE 343 IU/L (0-55); ALBUMIN 2.5 g/dL (3.5-5.0); ALBUMIN/GLOBULIN RATIO 1.3 (0.8-2.0); ALKALINE PHOSPHATASE 159 IU/L (40-150); BLOOD UREA NITROGEN 28 mg/dL (7-26); BUN/CREATININE RATIO 34 (6-25); CALCIUM 7.7 mg/dL (8.4-10.2); CARBON DIOXIDE 29 mmol/L (22-29); CHLORIDE 96 mmol/L (98-107); CREATININE, SERUM 0.83 mg/dL (0.72-1.25); EST GLOMERULAR FILTRATION RATE > 60 ML/MIN (60-); GLUCOSE 65 mg/dL (74-118); MAGNESIUM 1.9 MG/DL (1.3-2.1); PHOSPHORUS 2.6 MG/DL (2.3-4.7); SODIUM 137 mmol/L (136-145)
[2018-09-07] MEDS ORDERED: SODIUM CHLORIDE 0.9% 50ML 50 ML ONE (05:37)
[2018-09-07] MEDS ORDERED: PHYTONADIONE 10MG/ML 2 ML ONE (05:37)
[2018-09-07 05:40] LABS: HEMATOCRIT 30.2 % (38.2-49.6); HEMOGLOBIN 10.4 g/dL (14.0-18.0); MEAN CORPUSCULAR HEMOGLOBIN 31.3 pg (28-32); MEAN CORPUSCULAR HGB CONC 34.4 g/dL (31-35); PLATELET COUNT 106 x10e3/uL (140-360); RED BLOOD COUNT 3.32 x10e6/uL (4.3-5.7); RED CELL DISTRIBUTION WIDTH 16.9 % (11.7-14.4)
[2018-09-07] MEDS ORDERED: PHYTONADIONE 10 MG/ML AMP IV SCH ×2 (06:05)
[2018-09-07] MEDS ORDERED: POTASSIUM CHLORIDE 20MEQ/100ML 200 ML IV ONE ×2 (06:30→15:30)
--- NOTE | 2018-09-07 06:35 | Diagnostic Imaging Report ---
EXAM: CHEST SINGLE (PORTABLE), AP 1 view INDICATION: Respiratory failure COMPARISON: September 06, 2018 FINDINGS: LINES/TUBES: Stable endotracheal tube and nasogastric tube. Slight retraction of the left approach PICC with tip terminating at the expected location of the internal jugular vein/left brachiocephalic vein junction. LUNGS: Stable bilateral interstitial and alveolar opacities. PLEURA: No effusions or pneumothorax. HEART AND MEDIASTINUM: Stable enlargement. BONES AND SOFT TISSUES: No acute findings. IMPRESSION: Slight retraction of the left approach PICC with tip terminating at the expected location of the internal jugular vein/left brachiocephalic vein junction. Signed by: Dr. Parul Smith M.D. on 09/07/2018 6:32 AM
[2018-09-07] MEDS: OCTREOTIDE ACETATE 500 MCG in SODIUM CHLORIDE 0.9% 250ML 249 ML IV SCH ×2 (07:20→17:16)
[2018-09-07 07:21] LABS: EOSINOPHILS % (MANUAL) 1 % (0-7); LYMPHOCYTES % (MANUAL) 5 % (19-48); MONOCYTES % (MANUAL) 3 % (3.4-9.0); NEUTROPHILS % (MANUAL) 91 % (40-74)
[2018-09-07 07:22] LABS: ANISOCYTOSIS SLIGHT
[2018-09-07] MEDS: (Mirabegron (Myrbetriq) 50 MG) PO SCH (07:48)
[2018-09-07] MEDS: ASPIRIN 81 MG CHEW TAB PO SCH (07:48)
[2018-09-07] MEDS: LORATADINE 10 MG TAB PO SCH (07:48)
[2018-09-07] MEDS: BENZONATATE 100 MG CAP PO SCH ×3 (07:48→21:00)
[2018-09-07] MEDS: MIDODRINE 2.5 MG TAB PO SCH ×3 (07:48→16:23)
[2018-09-07] MEDS: FUROSEMIDE INJ 10 MG/ML 4 ML VIAL IV SCH ×2 (08:36→20:59)
[2018-09-07] MEDS: GUAIFENESIN/DEXTROMETHORPHAN LIQD 5 ML UDC NG SCH ×2 (11:27→21:01)
[2018-09-07] MEDS: NYSTATIN SUSPENSION 5 ML UDC PO SCH ×2 (11:27→21:01)
[2018-09-07] MEDS: DEXMEDETOMIDINE HCL 200 MCG in SODIUM CHLORIDE 0.9% 50ML 48 ML IV PRN ×2 (12:00→14:30)
[2018-09-07 14:43] LABS: BASOPHILS # (AUTO) 0.1 (0.0-0.1); BASOPHILS % 0.4 % (0.0-1.0); EOSINOPHILS % 0.3 % (0.0-6.0); HEMATOCRIT 32.9 % (38.2-49.6); HEMOGLOBIN 11.3 g/dL (14.0-18.0); LYMPHOCYTES # (AUTO) 0.7 (1.0-3.2); LYMPHOCYTES % 5.1 % (18.0-39.1); MEAN CORPUSCULAR HEMOGLOBIN 31.7 pg (28-32); MEAN CORPUSCULAR HGB CONC 34.3 g/dL (31-35); MEAN CORPUSCULAR VOLUME 92.2 fL (81-99); MONOCYTES # (AUTO) 0.4 (0.2-0.8); NEUTROPHILS # (AUTO) 12.3 (2.1-6.9); PLATELET COUNT 117 x10e3/uL (140-360); RED BLOOD COUNT 3.57 x10e6/uL (4.3-5.7); RED CELL DISTRIBUTION WIDTH 17.3 % (11.7-14.4)
[2018-09-07 14:55] LABS: INR 1.12; MAGNESIUM 1.8 MG/DL (1.3-2.1); POTASSIUM 3.3 mmol/L (3.5-5.1); PROTHROMBIN TIME 15.4 seconds (11.9-14.5)
[2018-09-07] MEDS ORDERED: SODIUM CHLORIDE 0.9% 250ML 250 ML ONE (15:29)
[2018-09-07] MEDS ORDERED: MAGNESIUM SULFATE 2GM/50ML 50 ML IV ONE (15:30)
[2018-09-07 15:51] LABS: LYMPHOCYTES % (MANUAL) 3 % (19-48); MONOCYTES % (MANUAL) 1 % (3.4-9.0); MYELOCYTES % (MANUAL) 2 % (0-0); NEUTROPHILS % (MANUAL) 94 % (40-74); NUCLEATED RED BLOOD CELLS 1; PLATELET ESTIMATE SLIGHTLY DECREASED; PLATELET MORPHOLOGY COMMENT NORMAL; RBC MORPHOLOGY COMMENT NORMAL
[2018-09-07 15:52] LABS: ANISOCYTOSIS SLIGHT
[2018-09-07] MEDS ORDERED: DEXMEDETOMIDINE 200MCG/NS 50ML 50 ML IV ONE (17:11)
[2018-09-07] MEDS ORDERED: DEXMEDETOMIDINE 200MCG/NS 50ML 50 ML IV PRN (17:15)
[2018-09-07] MEDS: NOREPINEPHRINE 8 MG/D5W 250 ML 250 ML IV SCH (19:30)
[2018-09-08] VITALS (54 sets, daily range): BP systolic 88–147; BP diastolic 54–108
[2018-09-08] MEDS: PANTOPRAZOL 40MG/SOD CHL 0.9% 50 ML IV SCH ×5 (02:03→21:31)
[2018-09-08] MEDS: OCTREOTIDE ACETATE 500 MCG in SODIUM CHLORIDE 0.9% 250ML 249 ML IV SCH ×2 (04:30→14:55)
[2018-09-08] MEDS: LINEZOLID 600 MG/D5W 300ML 300 ML IV SCH (04:31)
[2018-09-08 04:39] LABS: HEMATOCRIT 33.7 % (38.2-49.6); HEMOGLOBIN 11.4 g/dL (14.0-18.0); MEAN CORPUSCULAR HEMOGLOBIN 31.1 pg (28-32); MEAN CORPUSCULAR HGB CONC 33.8 g/dL (31-35); MEAN CORPUSCULAR VOLUME 92.1 fL (81-99); PLATELET COUNT 113 x10e3/uL (140-360); RED BLOOD COUNT 3.66 x10e6/uL (4.3-5.7); RED CELL DISTRIBUTION WIDTH 17.2 % (11.7-14.4)
[2018-09-08 04:54] LABS: INR 1.04; PROTHROMBIN TIME 14.5 seconds (11.9-14.5)
[2018-09-08 05:05] LABS: ALANINE AMINOTRANSFERASE 243 IU/L (0-55); ALBUMIN 2.3 g/dL (3.5-5.0); ALKALINE PHOSPHATASE 150 IU/L (40-150); ANION GAP 17.5 mmol/L (8-16); BLOOD UREA NITROGEN 33 mg/dL (7-26); BUN/CREATININE RATIO 41 (6-25); CALCIUM 7.5 mg/dL (8.4-10.2); CARBON DIOXIDE 27 mmol/L (22-29); CHLORIDE 97 mmol/L (98-107); EST GLOMERULAR FILTRATION RATE > 60 ML/MIN (60-); GLUCOSE 96 mg/dL (74-118); POTASSIUM 3.5 mmol/L (3.5-5.1); SODIUM 138 mmol/L (136-145)
[2018-09-08 05:16] LABS: MAGNESIUM 2.1 MG/DL (1.3-2.1); PHOSPHORUS 2.8 MG/DL (2.3-4.7)
[2018-09-08] MEDS: MEROPENEM 500MG 500 MG in SODIUM CHLORIDE 0.9% 50ML 50 ML IV SCH ×3 (05:18→18:26)
[2018-09-08] MEDS: GUAIFENESIN/DEXTROMETHORPHAN LIQD 5 ML UDC NG SCH ×3 (05:19→21:31)
[2018-09-08] MEDS: NYSTATIN SUSPENSION 5 ML UDC PO SCH ×3 (05:19→21:31)
--- NOTE | 2018-09-08 07:35 | Diagnostic Imaging Report ---
Examination: Single AP view of the chest. COMPARISON: 09/07/2018 INDICATION: Respiratory failure DISCUSSION: Endotracheal tube tip projects just above the mago, unchanged. Enteric tube and left upper extremity PICC are grossly unchanged. Hypoinflated lungs with stable interstitial and alveolar opacities. No sizable pleural effusion or pneumothorax. Stable cardiomediastinal contour. IMPRESSION: Stable position of support lines and tubes. Stable appearance of the heart and lungs, with the focal interstitial and alveolar opacities which may reflect edema or focal infection. Signed by: Dr. Ellis Matamoros M.D. on 09/08/2018 7:31 AM
[2018-09-08] MEDS: FUROSEMIDE INJ 10 MG/ML 4 ML VIAL IV SCH ×2 (08:03→21:30)
[2018-09-08] MEDS: ASPIRIN 81 MG CHEW TAB PO SCH (08:03)
[2018-09-08] MEDS: BENZONATATE 100 MG CAP PO SCH ×3 (08:04→21:00)
[2018-09-08] MEDS: LORATADINE 10 MG TAB PO SCH (08:04)
[2018-09-08] MEDS: (Mirabegron (Myrbetriq) 50 MG) PO SCH (08:04)
[2018-09-08] MEDS: MIDODRINE 2.5 MG TAB PO SCH ×3 (08:04→16:13)
--- NOTE | 2018-09-08 08:08 | Progress Note ---
DATE: September 07, 2018 TIME: 7:15 a.m. OVERNIGHT: No change. REVIEW OF SYSTEMS: Unobtainable. PHYSICAL EXAMINATION VITAL SIGNS: Reviewed. GENERAL: A tired-appearing man resting in bed. HEENT: Atraumatic. Has an ET tube in place. CARDIOVASCULAR: Normal S1 and S2. LUNGS: Reduced breath sounds. ABDOMEN: Soft, nontender and nondistended. EXTREMITIES: No edema. SKIN: Jaundiced. PSYCHIATRIC: Unable to assess. NEUROLOGIC: Not interactive. LABS: Reviewed. MEDICATIONS: Reviewed. ASSESSMENT: An 83-year-old man with: 1. Acute respiratory failure. 2. Interstitial lung disease in the setting of interstitial pneumonia. 3. Septic shock. 4. Acute kidney injury. 5. Urinary tract infection. 6. Choledocholithiasis and cholelithiasis. 7. Klebsiella bacteremia. 8. Acute gastrointestinal bleeding. 9. Hypokalemia. PLAN 1. He is status post blood products of 2 units of packed red blood cells and 2 units of fresh frozen plasma. His hemoglobin is remaining stable and is better. Continue to follow and recheck his CBC at 2 p.m. His platelets are stable. 2. Replace potassium. 3. Check potassium again at 2 p.m. 4. Continue empiric antibiotics. 5. He has a culture with Klebsiella pneumonia in 1 of 2 bottles on blood culture back in July. All other cultures are negative. 6. C. diff testing negative. 7. Continue supportive care. Monitor closely in the ICU. Job#: [id number] [email or web address]
--- NOTE | 2018-09-08 08:11 | Progress Note ---
DATE: September 08, 2018 TIME: 7:48 a.m. OVERNIGHT: Improving LFTs. REVIEW OF SYSTEMS: Unobtainable. PHYSICAL EXAMINATION VITAL SIGNS: Reviewed. GENERAL: A tired-appearing man resting in bed. HEENT: ET tube in place. CARDIOVASCULAR: Normal S1 and S2. LUNGS: Moderate breath sounds. ABDOMEN: Soft and nontender. EXTREMITIES: No edema. SKIN: Dry. Jaundiced. PSYCHIATRIC: Flat affect. NEUROLOGIC: Awake, tracking with eyes. LABS: Reviewed. MEDICATIONS: Reviewed. ASSESSMENT: An 83-year-old man. 1. Acute respiratory failure. 2. Interstitial lung disease with interstitial pneumonia. 3. Septic shock. 4. Acute kidney injury. 5. Urinary tract infection. 6. Choledocholithiasis. 7. Klebsiella bacteremia. 8. Acute gastrointestinal bleed. PLAN 1. Continue octreotide and PPI drips. 2. The patient remains intubated. Defer to pulmonary service. 3. LFTs are improving. 4. Hemoglobin is remaining stable at 11.4. 5. Continue treatment with broad-spectrum antibiotics. 6. Continue monitoring closely in the ICU. 7. Critical care time more than 35 minutes. Job#: [id number]
[2018-09-08] MEDS ORDERED: POTASSIUM CHLORIDE 20MEQ/15ML UDC NG STA (11:06)
[2018-09-08] MEDS ORDERED: POTASSIUM CHLORIDE 20MEQ/15ML UDC NG SCH (11:15)
[2018-09-08] MEDS ORDERED: FUROSEMIDE INJ 10 MG/ML 4 ML VIAL IV SCH ×2 (11:15→15:15)
[2018-09-08] MEDS ORDERED: POTASSIUM CHLORIDE 20MEQ/15ML UDC NG NR (15:00)
[2018-09-08] MEDS ORDERED: FUROSEMIDE INJ 10 MG/ML 4 ML VIAL IV NR (15:15)
[2018-09-08] MEDS: ALBUTEROL/IPRATROPIUM 3 ML NEB NEB PRN (17:23)
[2018-09-08] MEDS: NOREPINEPHRINE 8 MG/D5W 250 ML 250 ML IV SCH (19:30)
[2018-09-09] VITALS (85 sets, daily range): BP systolic 90–161; BP diastolic 54–99
[2018-09-09] MEDS ORDERED: DEXMEDETOMIDINE 200MCG/NS 50ML 50 ML IV ONE (00:18)
[2018-09-09] MEDS: MEROPENEM 500MG 500 MG in SODIUM CHLORIDE 0.9% 50ML 50 ML IV SCH ×4 (00:55→18:20)
[2018-09-09] MEDS: OCTREOTIDE ACETATE 500 MCG in SODIUM CHLORIDE 0.9% 250ML 249 ML IV SCH ×3 (00:55→20:47)
[2018-09-09] MEDS: PANTOPRAZOL 40MG/SOD CHL 0.9% 50 ML IV SCH ×4 (03:15→20:25)
[2018-09-09 05:11] LABS: HEMATOCRIT 34.5 % (38.2-49.6); HEMOGLOBIN 11.5 g/dL (14.0-18.0); MEAN CORPUSCULAR HEMOGLOBIN 31.4 pg (28-32); MEAN CORPUSCULAR HGB CONC 33.3 g/dL (31-35); MEAN CORPUSCULAR VOLUME 94.3 fL (81-99); PLATELET COUNT 103 x10e3/uL (140-360); RED BLOOD COUNT 3.66 x10e6/uL (4.3-5.7); RED CELL DISTRIBUTION WIDTH 17.1 % (11.7-14.4)
[2018-09-09] MEDS: GUAIFENESIN/DEXTROMETHORPHAN LIQD 5 ML UDC NG SCH ×3 (05:11→20:47)
[2018-09-09] MEDS: NYSTATIN SUSPENSION 5 ML UDC PO SCH (05:11)
[2018-09-09 05:31] LABS: ALANINE AMINOTRANSFERASE 156 IU/L (0-55); ALBUMIN/GLOBULIN RATIO 0.9 (0.8-2.0); ALKALINE PHOSPHATASE 156 IU/L (40-150); ANION GAP 15.4 mmol/L (8-16); BLOOD UREA NITROGEN 39 mg/dL (7-26); BUN/CREATININE RATIO 48 (6-25); CALCIUM 7.1 mg/dL (8.4-10.2); CARBON DIOXIDE 27 mmol/L (22-29); CHLORIDE 101 mmol/L (98-107); CREATININE, SERUM 0.82 mg/dL (0.72-1.25); EST GLOMERULAR FILTRATION RATE > 60 ML/MIN (60-); GLUCOSE 157 mg/dL (74-118); POTASSIUM 3.4 mmol/L (3.5-5.1); SODIUM 140 mmol/L (136-145)
[2018-09-09] MEDS: ALBUTEROL/IPRATROPIUM 3 ML NEB NEB PRN ×2 (08:00→19:50)
[2018-09-09] MEDS ORDERED: POTASSIUM CHLORIDE 20MEQ/100ML 100 ML IV STA (08:14)
[2018-09-09] MEDS ORDERED: CALCIUM GLUCONATE 10% INJ 9.3 MEQ in SODIUM CHLORIDE 0.9% 100 ML 100 ML IV ONE (08:45)
[2018-09-09] MEDS: MIDODRINE 2.5 MG TAB PO SCH ×3 (08:47→15:23)
[2018-09-09] MEDS: LORATADINE 10 MG TAB PO SCH (08:47)
[2018-09-09] MEDS: BENZONATATE 100 MG CAP PO SCH ×3 (08:47→20:47)
[2018-09-09] MEDS: ASPIRIN 81 MG CHEW TAB PO SCH (08:47)
[2018-09-09] MEDS: FUROSEMIDE INJ 10 MG/ML 4 ML VIAL IV SCH ×2 (08:48→20:47)
[2018-09-09] MEDS: (Mirabegron (Myrbetriq) 50 MG) PO SCH (09:00)
[2018-09-09] MEDS ORDERED: FUROSEMIDE INJ 10 MG/ML 4 ML VIAL IV SCH ×2 (13:30→16:00)
[2018-09-09 14:00] LABS: BAND NEUTROPHILS % (MANUAL) 9 %; EOSINOPHILS % (MANUAL) 6 % (0-7); LYMPHOCYTES % (MANUAL) 7 % (19-48); MONOCYTES % (MANUAL) 7 % (3.4-9.0); NEUTROPHILS % (MANUAL) 70 % (40-74); NUCLEATED RED BLOOD CELLS 3; RBC MORPHOLOGY COMMENT NORMAL
[2018-09-09 14:01] LABS: ANISOCYTOSIS SLIGHT; PLATELET ESTIMATE SLIGHTLY DECREASED; PLATELET MORPHOLOGY COMMENT NORMAL
[2018-09-09 14:38] LABS: ABG HCO3 32 mmol/L (23-28); ABG PCO2 43 mmHg (41-51); ABG PH 7.48 (7.31-7.41); ABG PO2 80 mmHg (80-105)
[2018-09-09] MEDS: MIDAZOLAM HCL 25 MG in SODIUM CHLORIDE 0.9% 50ML 45 ML IV PRN (15:08)
[2018-09-09] MEDS: NOREPINEPHRINE 8 MG/D5W 250 ML 250 ML IV SCH (19:30)
[2018-09-10] VITALS (89 sets, daily range): BP systolic 69–163; BP diastolic 45–112
[2018-09-10] MEDS ORDERED: FUROSEMIDE INJ 10 MG/ML 4 ML VIAL IV ONE
[2018-09-10] MEDS: PANTOPRAZOL 40MG/SOD CHL 0.9% 50 ML IV SCH ×5 (00:25→19:45)
[2018-09-10] MEDS: MEROPENEM 500MG 500 MG in SODIUM CHLORIDE 0.9% 50ML 50 ML IV SCH ×4 (00:26→18:19)
[2018-09-10 04:38] LABS: HEMATOCRIT 36.6 % (38.2-49.6); MEAN CORPUSCULAR HEMOGLOBIN 31.3 pg (28-32); MEAN CORPUSCULAR HGB CONC 32.8 g/dL (31-35); MEAN CORPUSCULAR VOLUME 95.6 fL (81-99); PLATELET COUNT 98 x10e3/uL (140-360); RED BLOOD COUNT 3.83 x10e6/uL (4.3-5.7); RED CELL DISTRIBUTION WIDTH 16.8 % (11.7-14.4)
[2018-09-10 04:54] LABS: INR 0.97; PROTHROMBIN TIME 13.8 seconds (11.9-14.5)
[2018-09-10 05:06] LABS: ALANINE AMINOTRANSFERASE 114 IU/L (0-55); ALBUMIN/GLOBULIN RATIO 0.8 (0.8-2.0); ALKALINE PHOSPHATASE 164 IU/L (40-150); ANION GAP 17.2 mmol/L (8-16); BLOOD UREA NITROGEN 39 mg/dL (7-26); BUN/CREATININE RATIO 51 (6-25); CALCIUM 7.5 mg/dL (8.4-10.2); CARBON DIOXIDE 29 mmol/L (22-29); CHLORIDE 103 mmol/L (98-107); CREATININE, SERUM 0.77 mg/dL (0.72-1.25); EST GLOMERULAR FILTRATION RATE > 60 ML/MIN (60-); GLUCOSE 142 mg/dL (74-118); POTASSIUM 3.2 mmol/L (3.5-5.1); SODIUM 146 mmol/L (136-145)
[2018-09-10 05:27] LABS: MAGNESIUM 1.5 MG/DL (1.3-2.1); PHOSPHORUS 2.8 MG/DL (2.3-4.7)
[2018-09-10] MEDS: GUAIFENESIN/DEXTROMETHORPHAN LIQD 5 ML UDC NG SCH ×3 (05:28→21:29)
[2018-09-10] MEDS: OCTREOTIDE ACETATE 500 MCG in SODIUM CHLORIDE 0.9% 250ML 249 ML IV SCH ×2 (05:29→17:16)
--- NOTE | 2018-09-10 07:17 | Diagnostic Imaging Report ---
EXAMINATION: CHEST SINGLE (PORTABLE) INDICATION: \S\resp failure pulm fibrose COMPARISON: 09/08/2018 FINDINGS: AP view TUBES and LINES: Endotracheal tube is approximately 2.6 cm above mago. Stable nasogastric tube and left PICC. LUNGS: Low lung volumes. Diffuse interstitial opacities. PLEURA: No pneumothorax. HEART AND MEDIASTINUM: The cardiomediastinal silhouette is enlarged. BONES AND SOFT TISSUES: No acute osseous lesion. Soft tissues are unremarkable. UPPER ABDOMEN: No free air under the diaphragm. IMPRESSION: Diffuse bilateral interstitial opacities, representing edema and/or pneumonia. Trace bilateral pleural effusion suspected. No change from prior exam. Signed by: Dr. Thanh Pitts MD on 09/10/2018 7:14 AM
[2018-09-10] MEDS ORDERED: POTASSIUM CHLORIDE 20 MEQ TAB CR PO STA (07:22)
[2018-09-10 07:24] LABS: BAND NEUTROPHILS % (MANUAL) 7 %; LYMPHOCYTES % (MANUAL) 9 % (19-48); MONOCYTES % (MANUAL) 2 % (3.4-9.0); NEUTROPHILS % (MANUAL) 82 % (40-74)
[2018-09-10 07:25] LABS: PLATELET ESTIMATE SLIGHTLY DECREASED; PLATELET MORPHOLOGY COMMENT NORMAL; RBC MORPHOLOGY COMMENT NORMAL
[2018-09-10] MEDS: MIDODRINE 2.5 MG TAB PO SCH ×3 (07:54→18:18)
[2018-09-10] MEDS: (Mirabegron (Myrbetriq) 50 MG) PO SCH (09:00)
[2018-09-10] MEDS: BENZONATATE 100 MG CAP PO SCH ×3 (09:00→21:00)
[2018-09-10] MEDS: ASPIRIN 81 MG CHEW TAB PO SCH (09:31)
[2018-09-10] MEDS: LORATADINE 10 MG TAB PO SCH (09:31)
[2018-09-10] MEDS ORDERED: POTASSIUM CHLORIDE 20MEQ/15ML UDC NG PRN (10:00)
[2018-09-10] MEDS ORDERED: FUROSEMIDE INJ 10 MG/ML 4 ML VIAL ONE (10:35)
[2018-09-10] MEDS ORDERED: MAGNESIUM SULFATE 2GM/50ML 50 ML IV ONE (11:00)
--- NOTE | 2018-09-10 14:01 | Progress Note ---
DATE: September 10, 2018 SUBJECTIVE: Remains intubated on the ventilator, making urine. OBJECTIVE VITAL SIGNS: Pulse 112, blood pressure is 99/58. HEENT: Orally intubated. CHEST: Crackles are decreased. EXTREMITIES: Edema appears slightly improved. LABS: Output 3 liters, intake 1.1 liters. Sodium is up to 146, K of 3.2. Magnesium was 1.5, that is still on the low side. Creatinine now recovered to 0.77, BUN of 39. Albumin is quite low at 2.0. ASSESSMENT 1. Acute tubular necrosis, improved. 2. Acidosis, resolved. 3. Mild hypokalemia. 4. Minimal hypernatremia from the diuresis. 5. Remains fluid overloaded. PLAN: Continue IV Lasix. Add 200 mL free water q.6 hours to give 800 mL of free water. Potassium has been replaced as well as the magnesium. We will follow along. Job#: [id number] LPA
[2018-09-10] MEDS: FUROSEMIDE INJ 10 MG/ML 4 ML VIAL IV SCH ×2 (15:00→21:29)
[2018-09-10] MEDS ORDERED: BALSAM PERU/CASTOR OIL 60 GM OINT...G. TP PRN (17:00)
[2018-09-10] MEDS: NOREPINEPHRINE 8 MG/D5W 250 ML 250 ML IV SCH (19:30)
--- NOTE | 2018-09-10 20:35 | Progress Note ---
DATE: September 09, 2018 TIME: 7:30 a.m. OVERNIGHT: No events. REVIEW OF SYSTEMS: Unobtainable. PHYSICAL EXAMINATION VITAL SIGNS: Reviewed. GENERAL: A tired-appearing man, resting in bed. HEENT: ET tube in place. CARDIOVASCULAR: Normal S1 and S2. LUNGS: Reduced breath sounds. ABDOMEN: Soft and nontender. EXTREMITIES: No edema. SKIN: He is jaundiced. PSYCHIATRIC: Flat affect. NEUROLOGICAL: Awake. LABS: Reviewed. MEDICATIONS: Reviewed. ASSESSMENT: An 83-year-old man with: 1. Acute respiratory failure. 2. Interstitial lung disease and interstitial pneumonia. 3. Septic shock. 4. Acute kidney injury. 5. Urinary tract infection. 6. Choledocholithiasis and cholelithiasis. 7. Klebsiella bacteremia. 8. Acute gastrointestinal bleeding. 9. Hypokalemia. PLAN 1. Replace potassium. 2. Continue vent support. 3. Continue antibiotics. 4. Follow up closely. 5. I have discussed the case with at bedside. Job#: [id number] LPA
--- NOTE | 2018-09-10 20:39 | Progress Note ---
DATE: September 10, 2018 TIME: 6:20 a.m. OVERNIGHT: No events. REVIEW OF SYSTEMS: Unobtainable. PHYSICAL EXAMINATION VITAL SIGNS: Reviewed. GENERAL: A tired-appearing man resting in bed. HEENT: ET tube in place. CARDIOVASCULAR: Normal S1 and S2. LUNGS: Reduced breath sounds. ABDOMEN: Soft and nondistended. EXTREMITIES: No edema. SKIN: Jaundiced. PSYCHIATRIC: Flat affect. NEUROLOGIC: Awake. LABS: Reviewed. MEDICATIONS: Reviewed. ASSESSMENT: An 83-year-old man; 1. Acute respiratory failure. 2. Interstitial lung disease with interstitial pneumonia. 3. Septic shock. 4. Acute kidney injury. 5. Urinary tract infection. 6. Choledocholithiasis and cholelithiasis. 7. Klebsiella bacteremia. 8. Acute gastrointestinal bleed. 9. Thrombocytopenia. 10. Hypokalemia. PLAN 1. Monitor platelet count. 2. LFTs continue to improve. 3. Replace potassium. 4. Continue vent support. Continue CPAP trials. 5. Patient is totally improving. We will monitor closely in the ICU. Job#: [id number] [email or web address]
[2018-09-10] MEDS ORDERED: DEXMEDETOMIDINE HCL 200 MCG in SODIUM CHLORIDE 0.9% 50ML 48 ML IV PRN (23:00)
[2018-09-10] MEDS: DEXMEDETOMIDINE 200MCG/NS 50ML 50 ML IV SCH (23:00)
[2018-09-11] VITALS (67 sets, daily range): BP systolic 82–154; BP diastolic 44–107
[2018-09-11] MEDS: MEROPENEM 500MG 500 MG in SODIUM CHLORIDE 0.9% 50ML 50 ML IV SCH ×4 (00:50→17:08)
[2018-09-11] MEDS ORDERED: SODIUM CHLORIDE 0.9% 250ML 250 ML ONE (00:50)
[2018-09-11] MEDS ORDERED: DEXMEDETOMIDINE 200MCG/NS 50ML 50 ML IV ONE (03:07)
[2018-09-11] MEDS ORDERED: PANTOPRAZOL 40MG/SOD CHL 0.9% 50 ML IV ONE (03:07)
[2018-09-11] MEDS: OCTREOTIDE ACETATE 500 MCG in SODIUM CHLORIDE 0.9% 250ML 249 ML IV SCH ×3 (03:16→22:50)
[2018-09-11] MEDS: PANTOPRAZOLE INJ 40 MG in SODIUM CHLORIDE 0.9% 50ML 50 ML IV SCH ×5 (03:20→22:50)
[2018-09-11] MEDS: DEXMEDETOMIDINE 200MCG/NS 50ML 50 ML IV SCH ×3 (03:30→17:08)
[2018-09-11 04:50] LABS: HEMATOCRIT 35.1 % (38.2-49.6); HEMOGLOBIN 11.6 g/dL (14.0-18.0); MEAN CORPUSCULAR HEMOGLOBIN 31.5 pg (28-32); MEAN CORPUSCULAR VOLUME 95.4 fL (81-99); PLATELET COUNT 89 x10e3/uL (140-360); RED BLOOD COUNT 3.68 x10e6/uL (4.3-5.7); RED CELL DISTRIBUTION WIDTH 16.9 % (11.7-14.4)
[2018-09-11 05:13] LABS: ALANINE AMINOTRANSFERASE 79 IU/L (0-55); ALBUMIN 1.9 g/dL (3.5-5.0); ALBUMIN/GLOBULIN RATIO 0.7 (0.8-2.0); ALKALINE PHOSPHATASE 172 IU/L (40-150); ANION GAP 16.3 mmol/L (8-16); BLOOD UREA NITROGEN 39 mg/dL (7-26); BUN/CREATININE RATIO 53 (6-25); CALCIUM 7.6 mg/dL (8.4-10.2); CARBON DIOXIDE 32 mmol/L (22-29); CHLORIDE 102 mmol/L (98-107); CREATININE, SERUM 0.74 mg/dL (0.72-1.25); EST GLOMERULAR FILTRATION RATE > 60 ML/MIN (60-); GLUCOSE 129 mg/dL (74-118); MAGNESIUM 1.8 MG/DL (1.3-2.1); PHOSPHORUS 3.1 MG/DL (2.3-4.7); POTASSIUM 3.3 mmol/L (3.5-5.1); SODIUM 147 mmol/L (136-145)
[2018-09-11] MEDS: GUAIFENESIN/DEXTROMETHORPHAN LIQD 5 ML UDC NG SCH ×3 (05:36→21:12)
[2018-09-11] MEDS: FUROSEMIDE INJ 10 MG/ML 4 ML VIAL IV SCH ×3 (05:54→21:43)
--- NOTE | 2018-09-11 07:27 | Diagnostic Imaging Report ---
EXAM: XR CHEST 1 VIEW DATE: 09/11/2018 6:00 AM INDICATION: Pneumonia COMPARISON: 09/10/2018, no report available FINDINGS: Lines and Tubes: ET tube tip above mago. NG tube extends past GE junction. Heart and Mediastinum: Enlarged. Lungs and Pleura: Moderate bilateral airspace opacities are present which could represent edema and/or pneumonia. Small effusions. Bones and Soft Tissues: No acute findings. IMPRESSION: 1. Worsening edema and/or pneumonia. Signed by: Dr. Joss Harris MD on 09/11/2018 7:24 AM
[2018-09-11] MEDS: BENZONATATE 100 MG CAP PO SCH ×3 (07:55→21:00)
[2018-09-11] MEDS: MIDODRINE 2.5 MG TAB PO SCH ×3 (08:00→13:30)
[2018-09-11] MEDS: (Mirabegron (Myrbetriq) 50 MG) PO SCH (09:00)
[2018-09-11 09:32] LABS: ABG HCO3 35 mmol/L (23-28); ABG PCO2 42 mmHg (41-51); ABG PH 7.52 (7.31-7.41); ABG PO2 82 mmHg (80-105)
[2018-09-11] MEDS: LORATADINE 10 MG TAB PO SCH (09:37)
[2018-09-11] MEDS: ASPIRIN 81 MG CHEW TAB PO SCH (09:37)
[2018-09-11 10:17] LABS: BAND NEUTROPHILS % (MANUAL) 19 %; EOSINOPHILS % (MANUAL) 5 % (0-7); LYMPHOCYTES % (MANUAL) 13 % (19-48); MONOCYTES % (MANUAL) 4 % (3.4-9.0); NEUTROPHILS % (MANUAL) 59 % (40-74); PLATELET ESTIMATE SLIGHTLY DECREASED; PLATELET MORPHOLOGY COMMENT NORMAL; RBC MORPHOLOGY COMMENT NORMAL
[2018-09-11] MEDS: ALBUTEROL/IPRATROPIUM 3 ML NEB NEB PRN (10:45)
--- NOTE | 2018-09-11 12:22 | Progress Note ---
DATE: September 11, 2018 TIME: 10:45 a.m. OVERNIGHT: No acute events. REVIEW OF SYSTEMS: Unobtainable. PHYSICAL EXAMINATION VITAL SIGNS: T 97.8, P 98, respiratory rate 32, BP 128/100, SpO2 93% on nasal cannula. GENERAL: This is a very tired, chronically ill-appearing man, resting supine in bed. HEENT: Normocephalic without sinus tenderness, septum midline, trachea midline, no JVD apparent. At bedside for extubation at this time. Oral mucosa is dry with some crusty lesions noted to tongue and oral mucosa. CV: S1 and S2 auscultated with regular rate and rhythm. Bedside telemetry reviewed. LUNGS: Bilateral breath sounds with rhonchi in all beatty at this time. ABDOMEN: Soft, not distended, not tender. EXTREMITIES: No edema. SKIN: Dry. PSYCHIATRIC: Flat affect. NEUROLOGIC: Alert, awake, follows 2-step commands. LABS: WBC is 11.59, H and H 11.6/35.1, platelet count 89. Na 147, K 3.3, Cl 102, gap 16.3, CO2 of 32, BUN 53, and glucose 129. GFR greater than 60. Blood gases prior to extubation reviewed. MEDICATIONS 1. Potassium chloride replacement. 2. Claritin 10 mg p.o. q.d. 3. Aspirin 81 mg p.o. q.d. 4. Protonix IV q.5 hours. 5. Midodrine t.i.d. 6. Lasix 80 mg q.8 hours IV. 7. Meropenem q.6 hours IV. 8. Robitussin DM 10 mL q.8 hours. 9. Precedex IV for titration. 10. Sandostatin drip. 11. P.r.n. albuterol nebs. 12. Vitamin K 20 mg previously given. 13. P.r.n. Flonase. 14. P.r.n. Zofran. 15. T.i.d Bren Frias. ASSESSMENT AND PLAN: This is an 83-year-old man with; 1. Acute respiratory failure. Pulmonary following, extubated this a.m. 2. Interstitial lung disease with interstitial pneumonia. IV antibiotics. Pulmonary input. 3. Septic shock. 4. Acute kidney injury. Nephrology following. Follow up a.m. values. 5. Choledocholithiasis and cholelithiasis. 6. Klebsiella bacteremia. IV antibiotics. 7. Acute gastrointestinal bleed. Monitor counts. 8. Thrombocytopenia. Continue to follow platelet counts, which are trending down. 9. Hypokalemia. Replace this a.m. Follow up values in the morning. 10. Prophylaxis, Protonix. DISPOSITION: Continue Sandostatin per GI services, monitor a.m. values, ICU care. Dictated by: Carlos Bruno NP Job#: [id number] MARIA LUZ
[2018-09-11] MEDS: NOREPINEPHRINE 8 MG/D5W 250 ML 250 ML IV SCH (19:30)
[2018-09-12] VITALS (36 sets, daily range): BP systolic 54–154; BP diastolic 22–103
[2018-09-12] MEDS: MEROPENEM 500MG 500 MG in SODIUM CHLORIDE 0.9% 50ML 50 ML IV SCH ×2 (00:31→05:09)
[2018-09-12 04:15] LABS: HEMATOCRIT 37.6 % (38.2-49.6); HEMOGLOBIN 12.1 g/dL (14.0-18.0); MEAN CORPUSCULAR HEMOGLOBIN 31.1 pg (28-32); MEAN CORPUSCULAR HGB CONC 32.2 g/dL (31-35); MEAN CORPUSCULAR VOLUME 96.7 fL (81-99); PLATELET COUNT 98 x10e3/uL (140-360); RED BLOOD COUNT 3.89 x10e6/uL (4.3-5.7); RED CELL DISTRIBUTION WIDTH 16.6 % (11.7-14.4)
[2018-09-12 04:35] LABS: ALANINE AMINOTRANSFERASE 67 IU/L (0-55); ALBUMIN 2.2 g/dL (3.5-5.0); ALBUMIN/GLOBULIN RATIO 0.8 (0.8-2.0); ALKALINE PHOSPHATASE 164 IU/L (40-150); ANION GAP 14.8 mmol/L (8-16); BLOOD UREA NITROGEN 33 mg/dL (7-26); BUN/CREATININE RATIO 41 (6-25); CALCIUM 8.4 mg/dL (8.4-10.2); CARBON DIOXIDE 32 mmol/L (22-29); CHLORIDE 106 mmol/L (98-107); CREATININE, SERUM 0.81 mg/dL (0.72-1.25); EST GLOMERULAR FILTRATION RATE > 60 ML/MIN (60-); GLUCOSE 117 mg/dL (74-118); MAGNESIUM 1.7 MG/DL (1.3-2.1); PHOSPHORUS 3.2 MG/DL (2.3-4.7); POTASSIUM 3.8 mmol/L (3.5-5.1); SODIUM 149 mmol/L (136-145)
[2018-09-12] MEDS: PANTOPRAZOLE INJ 40 MG in SODIUM CHLORIDE 0.9% 50ML 50 ML IV SCH ×4 (05:01→18:24)
[2018-09-12] MEDS: GUAIFENESIN/DEXTROMETHORPHAN LIQD 5 ML UDC NG SCH ×3 (05:06→21:57)
[2018-09-12] MEDS: FUROSEMIDE INJ 10 MG/ML 4 ML VIAL IV SCH (06:01)
[2018-09-12] MEDS: MIDODRINE 2.5 MG TAB PO SCH ×3 (08:00→16:00)
[2018-09-12] MEDS: BENZONATATE 100 MG CAP PO SCH ×3 (09:00→21:00)
[2018-09-12] MEDS: ASPIRIN 81 MG CHEW TAB PO SCH (09:00)
[2018-09-12] MEDS: (Mirabegron (Myrbetriq) 50 MG) PO SCH (09:00)
[2018-09-12] MEDS: CHLORTHALIDONE 25 MG TAB PO SCH (09:00)
[2018-09-12] MEDS: LORATADINE 10 MG TAB PO SCH (09:00)
[2018-09-12] MEDS: OCTREOTIDE ACETATE 500 MCG in SODIUM CHLORIDE 0.9% 250ML 249 ML IV SCH ×2 (11:38→19:20)
[2018-09-12] MEDS: CEFEPIME HCL 1 GM VIAL IV SCH ×2 (11:40→22:38)
[2018-09-12] MEDS ORDERED: DEXTROSE 5% 1,000 ML IV ONE (12:30)
[2018-09-12] MEDS: NYSTATIN SUSPENSION 5 ML UDC PO SCH ×3 (13:00→23:24)
[2018-09-12] MEDS: FLUCONAZOLE 100 MG/NS 50 ML 50 ML IV SCH (14:00)
[2018-09-12] MEDS: BALSAM PERU/CASTOR OIL 60 GM OINT...G. TP SCH (17:34)
[2018-09-12] MEDS: NOREPINEPHRINE 8 MG/D5W 250 ML 250 ML IV SCH (19:30)
[2018-09-12] MEDS: ALBUTEROL/IPRATROPIUM 3 ML NEB NEB PRN (19:40)
[2018-09-13] VITALS (39 sets, daily range): BP systolic 79–131; BP diastolic 38–89
[2018-09-13] MEDS: PANTOPRAZOLE INJ 40 MG in SODIUM CHLORIDE 0.9% 50ML 50 ML IV SCH ×5 (00:07→20:44)
[2018-09-13] MEDS: ALBUTEROL/IPRATROPIUM 3 ML NEB NEB PRN ×3 (01:05→19:40)
[2018-09-13] MEDS: DEXMEDETOMIDINE 200MCG/NS 50ML 50 ML IV SCH (03:30)
[2018-09-13] MEDS: OCTREOTIDE ACETATE 500 MCG in SODIUM CHLORIDE 0.9% 250ML 249 ML IV SCH ×2 (05:00→17:46)
[2018-09-13 05:14] LABS: HEMATOCRIT 35.1 % (38.2-49.6); HEMOGLOBIN 11.3 g/dL (14.0-18.0); MEAN CORPUSCULAR HGB CONC 32.2 g/dL (31-35); MEAN CORPUSCULAR VOLUME 96.4 fL (81-99); PLATELET COUNT 128 x10e3/uL (140-360); RED BLOOD COUNT 3.64 x10e6/uL (4.3-5.7); RED CELL DISTRIBUTION WIDTH 16.3 % (11.7-14.4)
[2018-09-13 05:52] LABS: ANION GAP 18.3 mmol/L (8-16); BLOOD UREA NITROGEN 28 mg/dL (7-26); BUN/CREATININE RATIO 31 (6-25); CALCIUM 8.1 mg/dL (8.4-10.2); CARBON DIOXIDE 29 mmol/L (22-29); CHLORIDE 105 mmol/L (98-107); CREATININE, SERUM 0.89 mg/dL (0.72-1.25); EST GLOMERULAR FILTRATION RATE > 60 ML/MIN (60-); GLUCOSE 166 mg/dL (74-118); MAGNESIUM 1.7 MG/DL (1.3-2.1); PHOSPHORUS 2.8 MG/DL (2.3-4.7); POTASSIUM 3.3 mmol/L (3.5-5.1); SODIUM 149 mmol/L (136-145)
[2018-09-13] MEDS: GUAIFENESIN/DEXTROMETHORPHAN LIQD 5 ML UDC NG SCH ×3 (06:00→22:00)
[2018-09-13] MEDS: NYSTATIN SUSPENSION 5 ML UDC PO SCH ×4 (06:23→23:23)
[2018-09-13] MEDS ORDERED: POTASSIUM CHLORIDE 20MEQ/100ML 100 ML IV ONE ×2 (06:45→13:00)
[2018-09-13 07:46] LABS: BAND NEUTROPHILS % (MANUAL) 3 %; LYMPHOCYTES % (MANUAL) 9 % (19-48); MONOCYTES % (MANUAL) 7 % (3.4-9.0); MYELOCYTES % (MANUAL) 2 % (0-0); NEUTROPHILS % (MANUAL) 74 % (40-74); NUCLEATED RED BLOOD CELLS 2
[2018-09-13 07:49] LABS: ANISOCYTOSIS SLIGHT; PLATELET ESTIMATE ADEQUATE; PLATELET MORPHOLOGY COMMENT NORMAL; POIKILOCYTOSIS SLIGHT; RBC MORPHOLOGY COMMENT ABNORMAL
--- OUTSIDE RECORDS SUMMARY | 2018-09-13 07:49 | XMS REPORT | Continuity of Care Document ---
Author Author [facility] Interface Address Unknown Phone Unavailable Problems Problem Status Onset Date Classification Date Reported Comments Source DX: J84.10=PULMONARY FIBROSIS, UNSPECIF Active 10/20/2017 [facility] HIP FRACTURE Active 05/04/2017 [facility] [place] COLD NONDISPLACED INTEROCHANTERIC FX OF Active 05/03/2017 [facility] FALL Active 05/03/2017 [facility] DX: J84.10=PULMONARY FIBROSIS, UNSPECIFI Active 11/29/2016 [facility] Reflux gastritis Resolved Problem 12/06/2017 RICHARD [place],[facility] Closed traumatic displaced intertrochanteric fracture of femur Active Problem 12/06/2017 OPID [place],[facility] Diverticulitis Resolved Problem 12/06/2017 OP[facility] [place],[facility] Final: Nondisplaced intertrochanteric fracture of right femur, initial encounter for closed fracture 05/15/2017 [facility] NONDISPLACED INTERTROCHANTERIC FRACTURE Active [facility] FX UNSP PART OF BODY OF MANDIBLE, UNSPEC Active [facility] PULMONARY FIBROSIS, UNSPECIFIED Active [facility] Medications Medication Details Route Status Patient Instructions Ordering Provider Order Date Source Physical Therapy See Instructions, MISC, ONCALL, Evaluate and Treat 2-3 times per week for 4-6 weeks, # 1 ea, 0 Refill(s) Active 05/25/2017 [facility] aspirin 81 mg tablet, enteric coated 81 mg=1 tab, PO, Daily, # 90 tab, 3 Refill(s) Active 05/25/2017 [facility] tramadol hydrochloride 50 MG Oral Tablet 50 mg=1 tab, PO, Q4H, PRN Pain Score 6-10, .., X 3 day, # 20 tab, 0 Refill(s) Active 05/25/2017 [facility] predniSONE 10 mg oral tablet See Instructions, 2 tab PO Daily with food until 06/01/17 and then 1 tab po daily, # 60 tab, 0 Refill(s) Inactive 05/25/2017 [facility] fondaparinux 2.5 mg/0.5 mL subcutaneous solution 2.5 mg=0.5 mL, SUB-Q, Q24H, X 30 day, # 15 mL, 0 Refill(s) Inactive 05/25/2017 [facility] Ergocalciferol [id number] UNT Oral Capsule 50,000 IntlUnit=1 cap, PO, Q7D, # 3 cap, 0 Refill(s) Active 05/25/2017 [facility] acetaminophen 325 mg oral tablet 650 mg=2 tab, PO, Q6H, PRN Pain 1-3/Temp > 100.4 F, 0 Refill(s) Active 05/25/2017 [facility] predniSONE 20 mg, 2 tab, Route: PO, Drug form: TAB, Daily, Start date: 05/25/17 9:00:00 CDT, Duration: 7 day, Stop date: 05/31/17 9:00:00 CDTNotes: (Same as: PredniSONE) Take with food. Inactive 05/25/2017 [facility] Ergocalciferol [id number] UNT Oral Capsule 50,000 IntlUnit, 1 cap, Route: PO, Drug form: CAP, Q7D, Dosing Weight 83.636, kg, Start date: 05/20/17 10:00:00 CDT, Duration: 30 day, Stop date: 06/17/17 9:00:00 CDTNotes: (Same as: Vitamin D) "Do Not Crush" No Longer Active 05/20/2017 [facility] predniSONE 30 mg, 3 tab, Route: PO, Drug form: TAB, Daily, Start date: 05/18/17 9:00:00 CDT, Duration: 7 day, Stop date: 05/24/17 9:00:00 CDTNotes: (Same as: PredniSONE) Take with food. No Longer Active 05/18/2017 [facility] Prednisone 30 mg, Route: PO, Daily, Start date: 05/18/17 9:00:00 CDT, Duration: 28 day, Stop date: 06/14/17 9:00:00 CDT No Longer Active 05/18/2017 [facility] methylPREDNISolone SODium SUCCinate 40 mg, 1 mL, Route: IV, Drug form: INJ, Daily, Dosing Weight 83.636, kg, Start date: 05/15/17 9:00:00 CDT, Duration: 30 day, Stop date: 06/13/17 9:00:00 CDTNotes: (Same as:Solu-MEDROL, A-Methapred) No Longer Active 05/15/2017 [facility] Prednisone 20 mg, Route: PO, Drug form: TAB, Daily, Dosing Weight 83.636, kg, Start date: 05/15/17 9:00:00 CDT, Duration: 30 day, Stop date: 06/13/17 9:00:00 CDT No Longer Active 05/15/2017 [facility] Levaquin 750 mg, 3 tab, Route: PO, Drug form: TAB, [id number], Dosing Weight 83.636, kg, Start date: 05/14/17 9:00:00 CDT, Duration: 5 day, Stop date: 05/18/17 9:00:00 CDT, ABX Indication: PneumoniaNotes: Do not give w/antacids, dairy pdt & minerals Take 1 hr before or 2 hr after dairy pdt (Same as:Levaquin) No Longer Active 05/14/2017 [facility] Solu-MEDROL 40 mg, 1 mL, Route: IVP, Drug form: INJ, Daily, Dosing Weight 81.818, kg, Start date: 05/13/17 9:00:00 CDT, Duration: 30 day, Stop date: 06/11/17 9:00:00 CDTNotes: (Same as:Solu-MEDROL, A-Methapred) No Longer Active 05/13/2017 [facility] Flonase 0.05 mg/inh nasal spray 2 spray, Route: NASAL, Drug Form: SPRY, Dosing Weight 81.818, kg, Daily, Start date: 05/13/17 9:00:00 CDT, Duration: 30 day, Stop date: 06/11/17 9:00:00 CDTNotes: (Same as: Flonase) No Longer Active 05/13/2017 [facility] Protonix 40 mg, 1 tab, Route: PO, Drug form: ECTAB, Daily, Dosing Weight 81.818, kg, Start date: 05/13/17 9:00:00 CDT, Duration: 30 day, Stop date: 06/11/17 9:00:00 CDTNotes: Tablet should not be chewed or crushed. (Same as: Protonix) No Longer Active 05/13/2017 [facility] Saline Flush 0.9% 10 ml, Route: IVP, Drug Form: INJ, Dosing Weight 81.818, kg, Q12H, Start date: 05/12/17 21:00:00 CDT, Duration: 30 day, Stop date: 06/11/17 9:00:00 CDTNotes: (Same as: BD Posiflush) No Longer Active 05/13/2017 [facility] Zosyn + sodium chloride 0.9% INJ 100 mL 3.375 gm, Route: IVPB, [id number], Dosing Weight 81.818, kg, CrCl >=20 ml/min infuse over 4 hours, Start date: 05/12/17 21:00:00 CDT, Duration: 6 day, Stop date: 05/18/17 13:00:00 CDT, ABX Indication: PneumoniaNotes: (Same as: Zosyn) Dosing based on Piperacillin component MEDICATION WASTE Product Size: 3375 mg Product Wasted: ___ mg No Longer Active 05/13/2017 [facility] docusate sodium 100 mg oral capsule 100 mg, 1 cap, Route: PO, Drug form: CAP, BID, Dosing Weight 81.818, kg, Start date: 05/12/17 17:00:00 CDT, Duration: 30 day, Stop date: 06/11/17 9:00:00 CDTNotes: (Same as: Colace) (Do Not Crush) No Longer Active 05/12/2017 [facility] tramadol 50 mg oral tablet 50 mg, 1 tab, Route: PO, Drug form: TAB, Q4H, Dosing Weight 81.818, kg, PRN Pain Score 1-3, Start date: 05/12/17 16:29:00 CDT, Duration: 30 day, Stop date: 06/11/17 16:28:00 CDT, ..Notes: Not to exceed 400mg/day. (Same As: Ultram) No Longer Active 05/12/2017 [facility] Mylicon 80 mg, 1 tab, Route: CHEW, Drug form: CHEWTAB, QID, Dosing Weight 81.818, kg, PRN Gas, Start date: 05/12/17 16:28:00 CDT, Duration: 30 day, Stop date: 06/11/17 16:27:00 CDTNotes: (Same as: Mylicon) No Longer Active 05/12/2017 [facility] K-Dur 20 40 mEq, 2 tab, Route: PO, Drug form: ERTAB, QAM, Dosing Weight 81.818, kg, PRN Other -See Comment, Start date: 05/12/17 16:17:00 CDT, Duration: 30 day, Stop date: 06/11/17 16:16:00 CDT, {k+] less than 3 .9Notes: (Same as: K-Dur 20) "Do Not Crush" With food and full glass of water No Longer Active 05/12/2017 [facility] acetaminophen-hydrocodone 325 mg-5 mg oral tablet 1 tab, Route: PO, Drug Form: TAB, Dosing Weight 81.818, kg, Q4H, PRN Pain Score 4-6, Start date: 05/12/17 16:15:00 CDT, Duration: 30 day, Stop date: 06/11/17 16:14:00 CDT, ..Notes: (Same as: [place] 325/5) Do not exceed 4gm/day of acetaminophen. No Longer Active 05/12/2017 [facility] Dulcolax Laxative 5 mg, 1 tab, Route: PO, Drug form: ECTAB, Q24H, Dosing Weight 81.818, kg, PRN Constipation, Start date: 05/12/17 16:15:00 CDT, Duration: 30 day, Stop date: 06/11/17 16:14:00 CDTNotes: (Same As: Dulcolax , Correctol) (Do Not Crush) "Do Not Crush" No Longer Active 05/12/2017 [facility] DuoNeb inhalation solution 3 ml, Route: NEB, Drug Form: SOLN, Dosing Weight 81.818, kg, PRN, PRN Respiratory Protocol, Start date: 05/12/17 16:15:00 CDT, Duration: 30 day, Stop date: 06/11/17 16:14:00 CDTNotes: (Same as: Duoneb) No Longer Active 05/12/2017 [facility] acetaminophen-hydrocodone 325 mg-10 mg oral tablet 1 tab, Route: PO, Drug Form: TAB, Dosing Weight 81.818, kg, Q4H, PRN Pain Score 7-10, Start date: 05/12/17 16:14:00 CDT, Duration: 30 day, Stop date: 06/11/17 16:13:00 CDTNotes: Do not exceed 4gm/day of acetaminophen. (Same as: [place] 325/10) No Longer Active 05/12/2017 [facility] Tylenol 650 mg, 2 tab, Route: PO, Drug form: TAB, Q6H, Dosing Weight 81.818, kg, PRN Pain 1-3/Temp > 100.4 F, Start date: 05/12/17 16:14:00 CDT, Duration: 30 day, Stop date: 06/11/17 16:13:00 CDTNotes: Do not exceed 4 gm/day. (Same as: Tylenol) No Longer Active 05/12/2017 [facility] Arixtra 2.5 mg, 0.5 mL, Route: SUB-Q, Drug form: SOLN, Q24H, Dosing Weight 83.636, kg, Start date: 05/12/17 16:00:00 CDT, Duration: 30 day, Stop date: 06/10/17 16:00:00 CDTNotes: (Same as: Arixtra) Non-Formulary Drug. No Longer Active 05/12/2017 [facility] Saline Flush 0.9% 10 ml, Route: IVP, Drug Form: INJ, Dosing Weight 81.818, kg, PRN, PRN Line Flush, Start date: 05/12/17 15:08:00 CDT, Duration: 30 day, Stop date: 06/11/17 15:07:00 CDTNotes: (Same as: BD Posiflush) No Longer Active 05/12/2017 [facility] Trazodone 50 mg, 1 tab, Route: PO, Drug form: TAB, Bedtime, Dosing Weight 81.818, kg, PRN Insomnia, Start date: 05/12/17 15:08:00 CDT, Duration: 30 day, Stop date: 06/11/17 15:07:00 CDTNotes: (Same As: Desyrel) No Longer Active 05/12/2017 [facility] predniSONE 20 mg oral tablet 20 mg=1 tab, PO, Daily, X 3 day, # 3 tab, 0 Refill(s) On Hold 05/12/2017 [facility] Levofloxacin 500 MG Oral Tablet [Levaquin] 500 mg=1 tab, PO, Q24H, X 5 day, # 5 tab, 0 Refill(s) On Hold 05/12/2017 [facility] simethicone 80 mg oral tablet, chewable 80 mg=1 tab, CHEW, QID, PRN Gas, 0 Refill(s) On Hold 05/12/2017 [facility] enoxaparin 40 mg/0.4 mL subcutaneous solution 40 mg=0.4 mL, SUB-Q, [id number], 0 Refill(s) On Hold 05/12/2017 [facility] Solu-Medrol 40 mg, 1 mL, Route: IVP, Drug form: INJ, Daily, Dosing Weight 81.818, kg, Start date: 05/11/17 9:00:00 CDT, Duration: 30 day, Stop date: 06/09/17 9:00:00 CDTNotes: (Same as:Solu-MEDROL, A-Methapred) No Longer Active 05/11/2017 [facility] Simethicone 80 mg, 1 tab, Route: CHEW, Drug form: CHEWTAB, QID, Dosing Weight 81.818, kg, PRN Gas, Start date: 05/09/17 22:29:00 CDT, Duration: 30 day, Stop date: 06/08/17 22:28:00 CDTNotes: (Same as: Mylicon) No Longer Active 05/10/2017 [facility] potassium chloride 20 mEq oral tablet, extended release 40 mEq, 2 tab, Route: PO, Drug form: ERTAB, BID, Dosing Weight 81.818, kg, Start date: 05/08/17 17:00:00 CDT, Duration: 2 doses or times, Stop date: 05/09/17 9:00:00 CDTNotes: (Same as: K-Dur 20) "Do Not Crush" With food and full glass of water No Longer Active 05/08/2017 [facility] vancomycin 1.5 gm, 250 mL, Route: IVPB, Drug form: INJ, [id number], Start date: 05/08/17 10:00:00 CDT, Duration: 30 day, Stop date: 06/06/17 22:00:00 CDT, ABX Indication: PneumoniaNotes: TIME CRITICAL MEDICATION Same as: Vancocin-NS (premixed) Infusion rate 2001 mg: infuse over 2.5 hours No Longer Active 05/08/2017 [facility] Lasix 20 mg, 2 mL, Route: IVP, Drug form: INJ, ONCE, Dosing Weight 81.818, kg, Start date: 05/08/17 9:00:00 CDT, Stop date: 05/08/17 9:00:00 CDTNotes: (Same as: Lasix) Inactive 05/08/2017 [facility] WAIT for vanco trough draw prior to giving dose on 05/08 WAIT for vanco trough draw prior to giving dose on 05/08, reminder, Drug form: MISC, Route: MISC, ONCE, 05/08/17 8:30:00 CDT, Stop date: 05/08/17 8:30:00 CDT Inactive 05/08/2017 [facility] Solu-Medrol 40 mg, 1 mL, Route: IVP, Drug form: INJ, BID-06-09, Dosing Weight 81.818, kg, Start date: 05/08/17 7:00:00 CDT, Duration: 30 day, Stop date: 06/06/17 12:00:00 CDTNotes: (Same as:Solu-MEDROL, A-Methapred) No Longer Active 05/08/2017 [facility] potassium chloride 40 mEq, 2 tab, Route: PO, Drug form: ERTAB, QAM, Dosing Weight 81.818, kg, PRN Other -See Comment, Start date: 05/07/17 16:03:00 CDT, Duration: 30 day, Stop date: 06/06/17 16:02:00 CDT, {k+] less than 3.9Notes: (Same as: K-Dur 20) "Do Not Crush" With food and full glass of water No Longer Active 05/07/2017 [facility] Magnesium Sulfate 4 gm, 100 mL, Route: IVPB, Drug form: INJ, ONCE, Dosing Weight 81.818, kg, Total dose=2 gm, Start date: 05/07/17 16:03:00 CDT, Duration: 1 doses or times, Stop date: 05/07/17 16:03:00 CDTNotes: WASTE: F/P - Sink; E - Municipal Trash Bin Inactive 05/07/2017 [facility] Lasix 20 mg, Route: IV, ONCE, Dosing Weight 81.818, kg, Start date: 05/07/17 16:02:00 CDT, Stop date: 05/07/17 16:02:00 CDT Inactive 05/07/2017 [facility] Protonix 40 mg, 1 tab, Route: PO, Drug form: ECTAB, Daily, Dosing Weight 81.818, kg, Start date: 05/06/17 9:00:00 CDT, Duration: 30 day, Stop date: 06/04/17 9:00:00 CDTNotes: Tablet should not be chewed or crushed. (Same as: Protonix) No Longer Active 05/06/2017 [facility] Fluticasone propionate 0.05 MG/ACTUAT Metered Dose Nasal [place] [Flonase] 2 spray, Route: NASAL, Drug Form: SPRY, Dosing Weight 81.818, kg, Daily, Start date: 05/06/17 9:00:00 CDT, Duration: 30 day, Stop date: 06/04/17 9:00:00 CDTNotes: (Same as: Flonase) No Longer Active 05/06/2017 [facility] ATTN RN: pls do not give Vancomycin until trough drawn at ATTN RN: pls do not give Vancomycin until trough drawn at, Reminder, Drug form: MISC, Route: MISC, ONCE, 05/06/17 7:30:00 CDT, Stop date: 05/06/17 7:30:00 CDT Inactive 05/06/2017 [facility] Lasix 40 mg, 4 mL, Route: IVP, Drug form: INJ, ONCE, Dosing Weight 81.818, kg, Start date: 05/05/17 12:33:00 CDT, Stop date: 05/05/17 12:33:00 CDTNotes: (Same as: Lasix) MEDICATION WASTE Product Size: 40 mg Product Wasted: ___ mg Inactive 05/05/2017 [facility] ergocalciferol 50,000 IntlUnit, 1 cap, Route: PO, Drug form: CAP, Daily, Dosing Weight 81.818, kg, Start date: 05/05/17 9:00:00 CDT, Duration: 3 day, Stop date: 05/07/17 9:00:00 CDTNotes: (Same as: Vitamin D) "Do Not Crush" No Longer Active 05/05/2017 [facility] Vancomycin 1,250 mg, Route: IVPB, [id number], Dosing Weight 81.818, kg, Start date: 05/05/17 8:00:00 CDT, Duration: 10 day, Stop date: 05/14/17 21:00:00 CDT, ABX Indication: PneumoniaNotes: TIME CRITICAL MEDICATION (Same As: Vancocin) Infusion rate 2001 mg: infuse over 2.5 hours MEDICATION WASTE Product Size: 1000 mg Product Wasted: ___ mg No Longer Active 05/05/2017 [facility] Enoxaparin 40 mg, 0.4 mL, Route: SUB-Q, Drug form: INJ, [id number], Dosing Weight 81.818, kg, Start date: 05/05/17 6:00:00 CDT, Duration: 30 day, Stop date: 06/03/17 6:00:00 CDTNotes: (Same as: Lovenox) No Longer Active 05/05/2017 [facility] Lovenox 40 mg, 0.4 mL, Route: SUB-Q, Drug form: INJ, [id number], Dosing Weight 81.818, kg, Start date: 05/05/17 6:00:00 CDT, Duration: 14 day, Stop date: 05/18/17 6:00:00 CDTNotes: (Same as: Lovenox) No Longer Active 05/05/2017 [facility] Ancef + sodium chloride 0.9% INJ 100 mL 2 gm, Route: IVPB, Q8H, Dosing Weight 81.818, kg, Start date: 05/04/17 21:00:00 CDT, Duration: 1 day, Stop date: 05/05/17 13:00:00 CDT, ABX Indication: Surgical ProphylaxisNotes: (Same As: Ancef, Kefzol) MEDICATION WASTE Product Size: 1000 mg Product Wasted: ___ mg No Longer Active 05/05/2017 [facility] Zosyn 3.375 gm, Route: IVPB, [id number], Dosing Weight 81.818, kg, CrCl >=20 ml/min infuse over 4 hours, Start date: 05/04/17 20:00:00 CDT, Duration: 7 day, Stop date: 05/18/17 12:00:00 CDT, ABX Indication: PneumoniaNotes: (Same as: Zosyn) Dosing based on Piperacillin component MEDICATION WASTE Product Size: 3375 mg Product Wasted: ___ mg No Longer Active 05/05/2017 [facility] vancomycin 2 gm, 500 mL, Route: IVPB, Drug form: SOLN, ONCE, Start date: 05/04/17 20:00:00 CDT, Stop date: 05/04/17 20:00:00 CDT, ABX Indication: PneumoniaNotes: TIME CRITICAL MEDICATION Same as: Vancocin Infusion rate 2001 mg: infuse over 2.5 hours Inactive 05/05/2017 [facility] Vancomycin 1 ea, Route: MISC, ONCALL, Dosing Weight 81.818, kg, Start date: 05/04/17 19:00:00 CDT, day, Stop date: 05/04/17 19:00:00 CDT, Pharmacy to dose, ABX Indication: Pneumonia Inactive 05/05/2017 [facility] Lasix 40 mg, 4 mL, Route: IVP, Drug form: INJ, ONCE, Dosing Weight 81.818, kg, Start date: 05/04/17 18:31:00 CDT, Stop date: 05/04/17 18:31:00 CDTNotes: (Same as: Lasix) MEDICATION WASTE Product Size: 40 mg Product Wasted: ___ mg Inactive 05/04/2017 [facility] Xopenex 0.63 mg, Route: NEB, ONCE, Dosing Weight 81.818, kg, Start date: 05/04/17 18:16:00 CDT, Stop date: 05/04/17 18:16:00 CDT Inactive 05/04/2017 [facility] Albuterol 0.833 MG/ML / Ipratropium [place] 0.167 MG/ML Inhalant Solution [DuoNeb] 3 ml, Route: NEB, Drug Form: SOLN, Dosing Weight 81.818, kg, PRN, PRN Respiratory Protocol, Start date: 05/04/17 18:06:00 CDT, Duration: 30 day, Stop date: 06/03/17 18:05:00 CDTNotes: (Same as: Duoneb) No Longer Active 05/04/2017 [facility] Lasix 40 mg, 4 mL, Route: IVP, Drug form: INJ, ONCE, Dosing Weight 81.818, kg, Start date: 05/04/17 18:05:00 CDT, Stop date: 05/04/17 18:05:00 CDTNotes: (Same as: Lasix) MEDICATION WASTE Product Size: 40 mg Product Wasted: ___ mg Inactive 05/04/2017 [facility] Docusate Sodium 100 MG Oral Capsule 100 mg, 1 cap, Route: PO, Drug form: CAP, BID, Dosing Weight 81.818, kg, Start date: 05/04/17 17:00:00 CDT, Duration: 30 day, Stop date: 06/03/17 9:00:00 CDTNotes: (Same as: Colace) (Do Not Crush) No Longer Active 05/04/2017 [facility] Cefazolin 1 gm, Route: IVPB, Drug form: INJ, Q8H, Dosing Weight 81.818, kg, Start date: 05/04/17 16:00:00 CDT, Duration: 1 doses or times, Stop date: 05/04/17 16:00:00 CDT, ABX Indication: Surgical Prophylaxis Inactive 05/04/2017 [facility] Melatonin 3 mg, 1 tab, Route: PO, Drug form: TAB, Bedtime, Dosing Weight 81.818, kg, PRN Sleep, Start date: 05/04/17 14:41:00 CDT, Duration: 3 day, Stop date: 05/07/17 14:40:00 CDT, ..Notes: (Same as: Melatonin) No Longer Active 05/04/2017 [facility] Ondansetron 4 mg, Route: IVP, Drug form: INJ, Q8H, Dosing Weight 81.818, kg, PRN Nausea & Vomiting, Start date: 05/04/17 14:41:00 CDT, Duration: 30 day, Stop date: 06/03/17 14:40:00 CDT, .. Inactive 05/04/2017 [facility] Acetaminophen 325 MG / Hydrocodone Bitartrate 5 MG Oral Tablet 1 tab, Route: PO, Drug Form: TAB, Dosing Weight 81.818, kg, Q4H, PRN Pain Score 1-3, Start date: 05/04/17 14:41:00 CDT, Duration: 30 day, Stop date: 06/03/17 14:40:00 CDT, ..Notes: (Same as: [place] 325/5) Do not exceed 4gm/day of acetaminophen. No Longer Active 05/04/2017 [facility] Tramadol 50 mg, 1 tab, Route: PO, Drug form: TAB, Q4H, Dosing Weight 81.818, kg, PRN Pain Score 4-6, Start date: 05/04/17 14:41:00 CDT, Duration: 30 day, Stop date: 06/03/17 14:40:00 CDT, ..Notes: Not to exceed 400mg/day. (Same As: Ultram) No Longer Active 05/04/2017 [facility] Naloxone 0.04 mg, Route: IVP, Q2MIN, Dosing Weight 81.818, kg, PRN Narcotic Reversal, Start date: 05/04/17 14:40:00 CDT, Duration: 30 day, Stop date: 06/03/17 14:39:00 CDT Inactive 05/04/2017 [facility] Ondansetron 4 mg, 2 mL, Route: IVP, Drug form: INJ, Q6H, Dosing Weight 81.818, kg, PRN Nausea & Vomiting, Start date: 05/04/17 14:40:00 CDT, Duration: 30 day, Stop date: 06/03/17 14:39:00 CDTNotes: (Same as: Ion) MEDICATION WASTE Product Size: 4 mg Product Wasted: ___ mg No Longer Active 05/04/2017 [facility] Dulcolax Laxative 5 mg, 1 tab, Route: PO, Drug form: ECTAB, Q24H, Dosing Weight 81.818, kg, PRN Constipation, Start date: 05/04/17 14:40:00 CDT, Duration: 30 day, Stop date: 06/03/17 14:39:00 CDTNotes: (Same As: Dulco lax, Correctol) (Do Not Crush) "Do Not Crush" No Longer Active 05/04/2017 [facility] Acetaminophen 325 MG / Hydrocodone Bitartrate 10 MG Oral Tablet 1 tab, Route: PO, Drug Form: TAB, Dosing Weight 81.818, kg, Q4H, PRN Pain Score 7-10, Start date: 05/04/17 14:40:00 CDT, Duration: 30 day, Stop date: 06/03/17 14:39:00 CDTNotes: Do not exceed 4gm/day of acetaminophen. (Same as: [place] 325/10) No Longer Active 05/04/2017 [facility] Lactated Ringers 1,000 mL 1,000 mL, Rate: 100 ml/hr, Infuse over: 10 hr, Route: IV, Dosing Weight 81.818 kg, Total Volume: 1,000, Start date: 05/04/17 14:40:00 CDT, Duration: 30 day, Stop date: 06/03/17 14:39:00 CDT Inactive 05/04/2017 [facility] Lopressor 2.5 mg, 2.5 mL, Route: IVP, Drug form: INJ, Q2H, Dosing Weight 81.818, kg, PRN Tachycardia, Start date: 05/04/17 9:56:00 CDT, Duration: 30 day, Stop date: 06/03/17 9:55:00 CDTNotes: (Same as: Lopressor) Push over 2 minutes No Longer Active 05/04/2017 [facility] Nitroglycerin 0.4 MG Sublingual Tablet [Nitrostat] 0.4 mg, 1 tab, Route: SL, Drug form: TAB, Q5Min, Dosing Weight 81.818, kg, PRN Chest Pain, Start date: 05/04/17 9:56:00 CDT, Duration: 3 doses or times, Stop date: Limited # of timesNotes: (Same as:Nitroquick, Nitrostat) "Do Not Crush" Sublingual tablet No Longer Active 05/04/2017 [facility] Morphine 2 mg, 1 mL, Route: IVP, Drug form: INJ, Q2H, Dosing Weight 81.818, kg, PRN Chest Pain, Start date: 05/04/17 9:55:00 CDT, Duration: 30 day, Stop date: 06/03/17 9:54:00 CDTNotes: (Same as:MORPhine Sulfate) No Longer Active 05/04/2017 [facility] Hydralazine 10 mg, 0.5 mL, Route: IV, Drug form: INJ, Q4H, Dosing Weight 81.818, kg, PRN Hypertension, Start date: 05/04/17 9:55:00 CDT, Duration: 30 day, Stop date: 06/03/17 9:54:00 CDTNotes: (Same as: Apresoline) Push over 5 minutes No Longer Active 05/04/2017 [facility] Magnesium Sulfate 2 gm, 50 mL, Route: IV, Drug form: INJ, ONCE, Dosing Weight 81.818, kg, Start date: 05/04/17 9:55:00 CDT, Stop date: 05/04/17 9:55:00 CDTNotes: WASTE: F/P - Sink; E - Municipal Trash Bin Inactive 05/04/2017 [facility] Fluticasone propionate 0.05 MG/ACTUAT Metered Dose Nasal [place] [Flonase] 2 spray, NASAL, Daily, in each nostril, # 16 gm, 1 Refill(s) On Hold 05/04/2017 [facility] Zyrtec 10 mg, Daily, 0 Refill(s) On Hold 05/04/2017 [facility] meloxicam 7.5 mg oral tablet 7.5 mg=1 tab, PO, BID, 0 Refill(s) No Longer Active 05/04/2017 [facility] Protonix 40 mg, PO, Daily, # 30 tab, 0 Refill(s) On Hold 05/04/2017 [facility] Enoxaparin 40 mg, Route: SUB-Q, Drug form: INJ, [id number], Dosing Weight 81.818, kg, Start date: 05/04/17 6:33:00 CDT, Duration: 30 day, Stop date: 06/02/17 6:33:00 CDT Inactive 05/04/2017 [facility] Ondansetron 4 mg, 2 mL, Route: IVP, Drug form: INJ, Q6H, Dosing Weight 81.818, kg, PRN Nausea & Vomiting, Start date: 05/03/17 19:40:00 CDT, Duration: 30 day, Stop date: 06/02/17 19:39:00 CDTNotes: (Same as: Ion) MEDICATION WASTE Product Size: 4 mg Product Wasted: ___ mg No Longer Active 05/04/2017 [facility] Morphine 4 mg, 1 mL, Route: IVP, Drug form: SOLN, Q4H, Dosing Weight 81.818, kg, PRN Pain Score 7-10, Start date: 05/03/17 19:40:00 CDT, Stop date: 06/02/17 19:39:00 CDTNotes: (Same as:MORPhine Sulfate) No Longer Active 05/04/2017 [facility] Acetaminophen 650 mg, 2 tab, Route: PO, Drug form: TAB, Q6H, Dosing Weight 81.818, kg, PRN Pain 1-3/Temp > 100.4 F, Start date: 05/03/17 19:40:00 CDT, Duration: 30 day, Stop date: 06/02/17 19:39:00 CDTNotes: Do not exceed 4 gm/day. (Same as: Tylenol) No Longer Active 05/04/2017 [facility] Acetaminophen 325 MG / Hydrocodone Bitartrate 5 MG Oral Tablet 1 tab, Route: PO, Drug Form: TAB, Dosing Weight 81.818, kg, Q6H, PRN Pain Score 4-6, Start date: 05/03/17 19:40:00 CDT, Duration: 30 day, Stop date: 06/02/17 19:39:00 CDTNotes: (Same as: [place] 325/5) Do not exceed 4gm/day of acetaminophen. No Longer Active 05/04/2017 [facility] Morphine 4 mg, 1 mL, Route: IVP, Drug form: SOLN, ONCE, Dosing Weight 81.818, kg, Start date: 05/03/17 19:14:00 CDT, Stop date: 05/03/17 19:14:00 CDTNotes: (Same as:MORPhine Sulfate) Inactive 05/04/2017 [facility] D5NS 1,000 mL 1,000 mL, Rate: 75 ml/hr, Infuse over: 13.3 hr, Route: IV, Dosing Weight 81.818 kg, Total Volume: 1,000, Start date: 05/03/17 18:41:00 CDT, Stop date: 06/02/17 18:40:00 CDT No Longer Active 05/03/2017 [facility] Saline Flush 0.9% 10 mL, Route: IVP, Drug Form: INJ, Dosing Weight 81.818, kg, PRN, PRN Line Flush, Start date: 05/03/17 17:23:00 CDT, Duration: 30 day, Stop date: 06/02/17 17:22:00 CDTNotes: (Same as: BD Posiflush) No Longer Active 05/03/2017 [facility] Morphine 6 mg, 3 mL, Route: IVP, Drug form: INJ, ONCE, Dosing Weight 81.818, kg, Priority: STAT, Start date: 05/03/17 17:23:00 CDT, Stop date: 05/03/17 17:23:00 CDTNotes: (Same as:MORPhine Sulfate) Inactive 05/03/2017 [facility] Allergies, Adverse Reactions, Alerts Substance Category Reaction Severity Reaction type Status Date Reported Comments Source iodinated radiocontrast dyes Assertion Drug allergy Active [facility] Immunizations Immunization Date Given Site Status Last Updated Comments Source Results Order Name Results Value Reference Range Date Interpretation Comments Source Chest wo contrast CT Chest wo contrast CT Clinical Indication: Pulmonary fibrosis, unspecified pt states this a follow up Comparison: Chest CTs 07/20/2017, 05/06/2017 TECHNIQUE: Sequential trans-axial images were obtained thru the chest and upper abdomen [<without>] administration of iodinated contrast. Coronal and sagittal reconstructions were obtained. CT Radiation Dose DLP 343 mGy-cm FINDINGS: LUNG PARENCHYMA AND PLEURA: 1.2 cm subpleural nodule in the right lower lobe which is fat-containing. No new nodules. Mild honeycombing in the lung bases. Subpleural reticulations. Scattered interstitial thickening throughout both lungs. There is no interstitial lung disease. There is no pleural effusion. There is no pneumothorax. AIRWAY: The central airway is normal. MEDIASTINUM: Multiple mildly enlarged lymph nodes in the mediastinum are not significant changed. Largest node measures 1.2 cm in short axis. There is no cardiomegaly. There is no pericardial effusion. Moderate coronary artery calcifications. No acute abnormalities of the aorta. Pulmonary arteries are unremarkable. BONES AND SOFT TISSUES: There are no acute osseous abnormalities seen. Mild bilateral gynecomastia. VISUALIZED NON-CONTRAST ENHANCED UPPER ABDOMEN: No acute abnormalities. Area of fat necrosis in the left upper quadrant. Hypodense lesion in the left lobe the liver is unchanged and is most likely a cyst. IMPRESSION: 1. No significant changes compared with the chest CT on 07/20/2017. 2. Pulmonary fibrosis, UIP pattern. 3. 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 SL: [id number] 12/03/2017 - - Read by: Ellis Larkin MD Dictated Date/time: 12/03/17 12:05 Electronically Signed by: Ellis Larkin MD 12/03/17 12:18 FINAL REPORT [facility] Hip 2/3 views uni DX Hip 2/3 views uni DX EXAM: Hip 2/3 views uni DX HISTORY: - M25.551 Pain in right hip COMPARISON: None Additional views of the right hip. FINDINGS: Right hip hardware consisting of an intramedullary femoral malgorzata and femoral neck screw project in expected position. There is a 2 x 4 cm bone fragment which projects inferomedial to the femoral neck without definitive donor site. This bone fragment is not seen on the intraoperative radiographs from 05/04/2017 and no more recent imaging is available for comparison. There is moderate joint space narrowing and osteophyte formation of the right hip with subchondral stenosis of the superior acetabulum. IVC filter noted. Lumbosacral degenerative change. IMPRESSION: There is a 2 x 4 cm bone fragment inferomedial to the right femoral neck, not seen on the most recent prior imaging from 05/04/2017. Consider CT for further evaluation of the donor site of this fragment. 09/21/2017 - - Read by: Narciso Powell MD Dictated Date/time: 09/21/17 16:16 Electronically Signed by: Narciso Powell MD 09/21/17 16:19 FINAL REPORT [facility] Chest wo contrast CT Chest wo contrast CT CT THORAX WITHOUT IV CONTRAST HISTORY: ; CT DLP 287 mGycm - J84.10 Pulmonary fibrosis, unspecified; R09.02 Hypoxemia; D75.1 Secondary polycythemia; TECHNIQUE: Multiple contiguous axial images of the chest were performed. Coronal and sagittal reformatted images were obtained. COMPARISON: CT thorax dated May 06, 2017 and chest radiography dated May 05, 2017 and March 09, 2001 FINDINGS: Since the prior CT, the extent and severity of moderate chronic subpleural pulmonary fibrosis with a basilar predominance and relatively mild subpleural honeycombing is unchanged. The superimposed groundglass alveolar opacities within both lungs on the prior exam but primarily on the left have resolved compatible with resolution of acute lung inflammation, pneumonia, or superimposed pulmonary edema. Trace left pleural effusion seen on the prior study has resolved. Unchanged 1.1 cm subpleural pulmonary nodule in the posterior right lower lobe. No new pulmonary nodule is seen. Unchanged mildly prominent nonspecific mediastinal lymph nodes. No dominant mediastinal mass. No mediastinal fluid collection. Heart size normal. Mild coronary calcifications. No pericardial effusion. Visualized portion of the upper abdominal contents demonstrates small subcentimeter benign liver cyst and mild arterial calcifications. No acute osseous abnormality. Multilevel thoracic disc degeneration. IMPRESSION: 1. The only change since the prior CT is resolution of the primarily left-sided groundglass lung opacities and resolution of the small left pleural effusion. This may represent resolution of acute lung inflammation, pneumonia, or pulmonary edema. 2. Unchanged moderate pulmonary fibrosis with subpleural and basilar predominance. Appearance is most compatible with idiopathic pulmonary fibrosis or fibrosis associated with collagen vascular disease. 3. Unchanged 1.1 cm subpleural pulmonary nodule in the posterior right lower lobe. This may represent hamartoma but malignancy cannot be excluded. This lesion is likely too small for biopsy. Recommend follow-up CT thorax in 6 months. SL: [id number] 07/20/2017 - - Read by: Goldy Guzmán MD Dictated Date/time: 07/20/17 17:15 Electronically Signed by: Goldy Guzmán MD 07/20/17 17:27 FINAL REPORT [facility] CHEM PANEL eGFR 82 mL/min/1.73m2 05/24/2017 Result Comment: The eGFR is calculated using the CKD-EPI formula. In most young, healthy individuals the eGFR will be >90 mL/min/1.73m2. The eGFR declines with age. An eGFR of 60-89 may be normal in some populations, particularly the elderly, for whom the CKD-EPI formula has not been extensively validated. Use of the eGFR is not recommended in the following populations: Individuals with unstable creatinine concentrations, including patients and those with serious co-morbid conditions. Patients with extremes in muscle mass or diet. The data above are obtained from the National Kidney Disease Education Program (NKDEP) which additionally recommends that when the eGFR is used in patients with extremes of body mass index for purposes of drug dosing, the eGFR should be multiplied by the estimated BMI. [facility] CHEM PANEL Glucose Lvl 99 mg/dL 70 - 99 05/24/2017 [facility] CHEM PANEL BUN 19 mg/dL 7 - 22 05/24/2017 [facility] CHEM PANEL Creatinine Lvl 0.83 mg/dL 0.50 - 1.40 05/24/2017 [facility] CHEM PANEL Sodium Lvl 139 meq/L 135 - 145 05/24/2017 [facility] CHEM PANEL Potassium Lvl 3.4 meq/L 3.5 - 5.1 05/24/2017 [facility] CHEM PANEL Chloride Lvl 106 meq/L 95 - 109 05/24/2017 [facility] CHEM PANEL CO2 28 meq/L 24 - 32 05/24/2017 [facility] CHEM PANEL Calcium Lvl 7.6 mg/dL 8.5 - 10.5 05/24/2017 [facility] CHEM PANEL AGAP 8.4 meq/L 10.0 - 20.0 05/24/2017 [facility] CHEM PANEL eGFR 72 mL/min/1.73m2 05/21/2017 Result Comment: The eGFR is calculated using the CKD-EPI formula. In most young, healthy individuals the eGFR will be >90 mL/min/1.73m2. The eGFR declines with age. An eGFR of 60-89 may be normal in some populations, particularly the elderly, for whom the CKD-EPI formula has not been extensively validated. Use of the eGFR is not recommended in the following populations: Individuals with unstable creatinine concentrations, including patients and those with serious co-morbid conditions. Patients with extremes in muscle mass or diet. The data above are obtained from the National Kidney Disease Education Program (NKDEP) which additionally recommends that when the eGFR is used in patients with extremes of body mass index for purposes of drug dosing, the eGFR should be multiplied by the estimated BMI. [facility] CHEM PANEL AGAP 13.0 meq/L 10.0 - 20.0 05/21/2017 [facility] CHEM PANEL BUN 30 mg/dL 7 - 22 05/21/2017 [facility] CHEM PANEL Potassium Lvl 4.0 meq/L 3.5 - 5.1 05/21/2017 [facility] CHEM PANEL Chloride Lvl 106 meq/L 95 - 109 05/21/2017 [facility] CHEM PANEL Glucose Lvl 158 mg/dL 70 - 99 05/21/2017 [facility] CHEM PANEL Creatinine Lvl 0.97 mg/dL 0.50 - 1.40 05/21/2017 [facility] CHEM PANEL Sodium Lvl 138 meq/L 135 - 145 05/21/2017 [facility] CHEM PANEL CO2 23 meq/L 24 - 32 05/21/2017 [facility] CHEM PANEL Calcium Lvl 8.2 mg/dL 8.5 - 10.5 05/21/2017 [facility] CARDIAC ENZYMES BNP 49 pg/mL <=100 pg/mL 05/19/2017 [facility] CHEM PANEL eGFR 80 mL/min/1.73m2 05/19/2017 Result Comment: The eGFR is calculated using the CKD-EPI formula. In most young, healthy individuals the eGFR will be >90 mL/min/1.73m2. The eGFR declines with age. An eGFR of 60-89 may be normal in some populations, particularly the elderly, for whom the CKD-EPI formula has not been extensively validated. Use of the eGFR is not recommended in the following populations: Individuals with unstable creatinine concentrations, including patients and those with serious co-morbid conditions. Patients with extremes in muscle mass or diet. The data above are obtained from the National Kidney Disease Education Program (NKDEP) which additionally recommends that when the eGFR is used in patients with extremes of body mass index for purposes of drug dosing, the eGFR should be multiplied by the estimated BMI. [facility] CHEM PANEL Chloride Lvl 107 meq/L 95 - 109 05/19/2017 [facility] CHEM PANEL Potassium Lvl 3.5 meq/L 3.5 - 5.1 05/19/2017 [facility] CHEM PANEL AGAP 7.5 meq/L 10.0 - 20.0 05/19/2017 [facility] CHEM PANEL Calcium Lvl 8.4 mg/dL 8.5 - 10.5 05/19/2017 [facility] CHEM PANEL CO2 28 meq/L 24 - 32 05/19/2017 [facility] CHEM PANEL Creatinine Lvl 0.88 mg/dL 0.50 - 1.40 05/19/2017 [facility] CHEM PANEL BUN 29 mg/dL 7 - 22 05/19/2017 [facility] CHEM PANEL Sodium Lvl 139 meq/L 135 - 145 05/19/2017 [facility] CHEM PANEL Glucose Lvl 83 mg/dL 70 - 99 05/19/2017 [facility] HEMATOLOGY Sed Rate 7 mm/h 0 - 15 05/19/2017 [facility] HEMATOLOGY WBC 13.0 K/CMM 3.7 - 10.4 05/19/2017 [facility] HEMATOLOGY RDW 17.2 % 11.5 - 14.5 05/19/2017 [facility] HEMATOLOGY MCV 93.9 fL 80.0 - 94.0 05/19/2017 [facility] HEMATOLOGY MCHC 33.6 g/dL 32.0 - 36.0 05/19/2017 [facility] MCH 31.6 pg 27.0 - 31.0 05/19/2017 [facility] HEMATOLOGY Hgb 12.0 g/dL 14.0 - 18.0 05/19/2017 [facility] HEMATOLOGY RBC 3.80 M/CMM 4.70 - 6.10 05/19/2017 [facility] HEMATOLOGY Hct 35.7 % 42.0 - 54.0 05/19/2017 [facility] HEMATOLOGY Platelet 284 K/CMM 133 - 450 05/19/2017 [facility] HEMATOLOGY MPV 8.8 fL 7.4 - 10.4 05/19/2017 [facility] HEMATOLOGY Monocytes # 0.9 K/CMM 0.0 - 0.8 05/19/2017 [facility] HEMATOLOGY Lymphocytes # 1.7 K/CMM 1.0 - 5.5 05/19/2017 [facility] HEMATOLOGY Segs-Bands # 10.3 K/CMM 1.5 - 8.1 05/19/2017 [facility] HEMATOLOGY Basophils 0.3 % 0.0 - 1.0 05/19/2017 [facility] HEMATOLOGY Lymphocytes 12.8 % 20.0 - 40.0 05/19/2017 [facility] HEMATOLOGY Segs 79.5 % 45.0 - 75.0 05/19/2017 [facility] HEMATOLOGY Monocytes 7.2 % 2.0 - 12.0 05/19/2017 [facility] HEMATOLOGY Eosinophils 0.2 % 0.0 - 4.0 05/19/2017 [facility] IMMUNOLOGY C-REACTIVE PROTEIN 12.9 mg/L <=2.9 mg/L 05/19/2017 [facility] CARDIAC ENZYMES BNP 50 pg/mL <=100 pg/mL 05/18/2017 [facility] CARDIAC ENZYMES BNP 136 pg/mL <=100 pg/mL 05/13/2017 [facility] CHEM PANEL A/G Ratio 0.8 0.7 - 1.6 05/13/2017 [facility] CHEM PANEL ALT 22 unit/L 0 - 65 05/13/2017 [facility] CHEM PANEL B/C Ratio 40 6 - 25 05/13/2017 [facility] CHEM PANEL Globulin 3.1 g/dL 2.7 - 4.2 05/13/2017 [facility] CHEM PANEL Alk Phos 60 unit/L 39 - 136 05/13/2017 [facility] CHEM PANEL AST 11 unit/L 0 - 37 05/13/2017 [facility] CHEM PANEL Bili Total 1.1 mg/dL 0.2 - 1.3 05/13/2017 [facility] CHEM PANEL Albumin Lvl 2.4 g/dL 3.5 - 5.0 05/13/2017 [facility] CHEM PANEL Total Protein 5.5 g/dL 6.4 - 8.4 05/13/2017 [facility] CHEM PANEL Vitamin D, 25-OH, Total 24.6 ng/mL 30.0 - 100.0 05/13/2017 [facility] CHEM PANEL Phosphorus 3.0 mg/dL 2.5 - 4.5 05/13/2017 [facility] CHEM PANEL Magnesium Lvl 2.1 mg/dL 1.8 - 2.4 05/13/2017 [facility] CHEM PANEL Albumin Lvl 2.4 g/dL 3.5 - 5.0 05/13/2017 [facility] HEMATOLOGY Segs 73.2 % 45.0 - 75.0 05/13/2017 [facility] HEMATOLOGY Lymphocytes # 1.7 K/CMM 1.0 - 5.5 05/13/2017 [facility] HEMATOLOGY Basophils # 0.1 K/CMM 0.0 - 0.2 05/13/2017 [facility] HEMATOLOGY Monocytes # 0.7 K/CMM 0.0 - 0.8 05/13/2017 [facility] HEMATOLOGY Eosinophils # 0.3 K/CMM 0.0 - 0.5 05/13/2017 [facility] HEMATOLOGY Segs-Bands # 7.6 K/CMM 1.5 - 8.1 05/13/2017 [facility] HEMATOLOGY Lymphocytes 16.6 % 20.0 - 40.0 05/13/2017 [facility] HEMATOLOGY Basophils 0.5 % 0.0 - 1.0 05/13/2017 [facility] Monocytes 7.0 % 2.0 - 12.0 05/13/2017 [facility] Eosinophils 2.7 % 0.0 - 4.0 05/13/2017 [facility] RBC Morph Normal (05/13/17 4:15 AM) 05/13/2017 [facility] Plt Morph Normal (05/13/17 4:15 AM) 05/13/2017 [facility] Sed Rate 27 mm/h 0 - 15 05/13/2017 [facility] PTT 29.3 s 22.9 - 35.8 05/13/2017 [facility] PT 14.1 s 12.0 - 14.7 05/13/2017 [facility] INR 1.07 0.85 - 1.17 05/13/2017 [facility] MCH 32.0 pg 27.0 - 31.0 05/13/2017 [facility] Platelet 202 K/CMM 133 - 450 05/13/2017 [facility] RDW 16.2 % 11.5 - 14.5 05/13/2017 [facility] MCHC 34.3 g/dL 32.0 - 36.0 05/13/2017 [facility] Hct 31.5 % 42.0 - 54.0 05/13/2017 [facility] Hgb 10.8 g/dL 14.0 - 18.0 05/13/2017 [facility] MPV 8.7 fL 7.4 - 10.4 05/13/2017 [facility] RBC 3.37 M/CMM 4.70 - 6.10 05/13/2017 [facility] WBC 10.4 K/CMM 3.7 - 10.4 05/13/2017 [facility] MCV 93.4 fL 80.0 - 94.0 05/13/2017 [facility] C-REACTIVE PROTEIN 37.8 mg/L <=2.9 mg/L 05/13/2017 [facility] IMMUNOLOGY Prealbumin 21.1 mg/dL 18.0 - 45.0 05/13/2017 [facility] CHEM PANEL Procalcitonin Lvl <0.05 ng/mL 0.00 - 0.10 05/12/2017 [facility] IMMUNOLOGY Prealbumin 22.3 mg/dL 18.0 - 45.0 05/12/2017 [facility] CHEM PANEL Magnesium Lvl 2.3 mg/dL 1.8 - 2.4 05/11/2017 [facility] CHEM PANEL eGFR 83 mL/min/1.73m2 05/11/2017 Result Comment: The eGFR is calculated using the CKD-EPI formula. In most young, healthy individuals the eGFR will be >90 mL/min/1.73m2. The eGFR declines with age. An eGFR of 60-89 may be normal in some populations, particularly the elderly, for whom the CKD-EPI formula has not been extensively validated. Use of the eGFR is not recommended in the following populations: Individuals with unstable creatinine concentrations, including patients and those with serious co-morbid conditions. Patients with extremes in muscle mass or diet. The data above are obtained from the National Kidney Disease Education Program (NKDEP) which additionally recommends that when the eGFR is used in patients with extremes of body mass index for purposes of drug dosing, the eGFR should be multiplied by the estimated BMI. [facility] CHEM PANEL AGAP 10.7 meq/L 10.0 - 20.0 05/11/2017 [facility] CHEM PANEL Calcium Lvl 8.4 mg/dL 8.5 - 10.5 05/11/2017 [facility] CHEM PANEL BUN 37 mg/dL 7 - 22 05/11/2017 [facility] CHEM PANEL Glucose Lvl 91 mg/dL 70 - 99 05/11/2017 [facility] CHEM PANEL CO2 26 meq/L 24 - 32 05/11/2017 [facility] CHEM PANEL Chloride Lvl 111 meq/L 95 - 109 05/11/2017 [facility] CHEM PANEL Sodium Lvl 144 meq/L 135 - 145 05/11/2017 [facility] CHEM PANEL Potassium Lvl 3.7 meq/L 3.5 - 5.1 05/11/2017 [facility] CHEM PANEL Creatinine Lvl 0.80 mg/dL 0.50 - 1.40 05/11/2017 [facility] CHEM PANEL Procalcitonin Lvl <0.05 ng/mL 0.00 - 0.10 05/11/2017 [facility] HEMATOLOGY Monocytes # 1.0 K/CMM 0.0 - 0.8 05/11/2017 [facility] HEMATOLOGY Basophils 0.2 % 0.0 - 1.0 05/11/2017 [facility] HEMATOLOGY Segs-Bands # 10.3 K/CMM 1.5 - 8.1 05/11/2017 [facility] HEMATOLOGY Lymphocytes # 1.3 K/CMM 1.0 - 5.5 05/11/2017 [facility] HEMATOLOGY Eosinophils 0.1 % 0.0 - 4.0 05/11/2017 [facility] Segs 81.5 % 45.0 - 75.0 05/11/2017 [facility] Monocytes 7.8 % 2.0 - 12.0 05/11/2017 [facility] Lymphocytes 10.4 % 20.0 - 40.0 05/11/2017 [facility] WBC 12.6 K/CMM 3.7 - 10.4 05/11/2017 [facility] Hgb 10.5 g/dL 14.0 - 18.0 05/11/2017 [facility] RBC 3.33 M/CMM 4.70 - 6.10 05/11/2017 [facility] Hct 31.0 % 42.0 - 54.0 05/11/2017 [facility] MPV 8.7 fL 7.4 - 10.4 05/11/2017 [facility] MCH 31.6 pg 27.0 - 31.0 05/11/2017 [facility] Platelet 173 K/CMM 133 - 450 05/11/2017 [facility] RDW 15.7 % 11.5 - 14.5 05/11/2017 [facility] MCHC 34.0 g/dL 32.0 - 36.0 05/11/2017 [facility] MCV 93.0 fL 80.0 - 94.0 05/11/2017 [facility] Sed Rate 49 mm/h 0 - 15 05/11/2017 [facility] IMMUNOLOGY C-REACTIVE PROTEIN 47.6 mg/L <=2.9 mg/L 05/11/2017 [facility] CHEM PANEL Procalcitonin Lvl 0.06 ng/mL 0.00 - 0.10 05/10/2017 [facility] CHEM PANEL eGFR 89 mL/min/1.73m2 05/08/2017 Result Comment: The eGFR is calculated using the CKD-EPI formula. In most young, healthy individuals the eGFR will be >90 mL/min/1.73m2. The eGFR declines with age. An eGFR of 60-89 may be normal in some populations, particularly the elderly, for whom the CKD-EPI formula has not been extensively validated. Use of the eGFR is not recommended in the following populations: Individuals with unstable creatinine concentrations, including patients and those with serious co-morbid conditions. Patients with extremes in muscle mass or diet. The data above are obtained from the National Kidney Disease Education Program (NKDEP) which additionally recommends that when the eGFR is used in patients with extremes of body mass index for purposes of drug dosing, the eGFR should be multiplied by the estimated BMI. [facility] CHEM PANEL A/G Ratio 0.9 0.7 - 1.6 05/08/2017 [facility] CHEM PANEL AST 18 unit/L 0 - 37 05/08/2017 [facility] CHEM PANEL ALT 12 unit/L 0 - 65 05/08/2017 [facility] CHEM PANEL Albumin Lvl 2.3 g/dL 3.5 - 5.0 05/08/2017 [facility] CHEM PANEL AGAP 13.1 meq/L 10.0 - 20.0 05/08/2017 [facility] CHEM PANEL Globulin 2.7 g/dL 2.7 - 4.2 05/08/2017 [facility] CHEM PANEL B/C Ratio 41 6 - 25 05/08/2017 [facility] CHEM PANEL Bili Total 1.7 mg/dL 0.2 - 1.3 05/08/2017 [facility] CHEM PANEL Alk Phos 56 unit/L 39 - 136 05/08/2017 [facility] CHEM PANEL Potassium Lvl 3.1 meq/L 3.5 - 5.1 05/08/2017 [facility] CHEM PANEL Chloride Lvl 103 meq/L 95 - 109 05/08/2017 [facility] CHEM PANEL Calcium Lvl 7.4 mg/dL 8.5 - 10.5 05/08/2017 [facility] CHEM PANEL Total Protein 5.0 g/dL 6.4 - 8.4 05/08/2017 [facility] CHEM PANEL CO2 26 meq/L 24 - 32 05/08/2017 [facility] CHEM PANEL Glucose Lvl 96 mg/dL 70 - 99 05/08/2017 [facility] CHEM PANEL Creatinine Lvl 0.68 mg/dL 0.50 - 1.40 05/08/2017 [facility] CHEM PANEL Sodium Lvl 139 meq/L 135 - 145 05/08/2017 [facility] CHEM PANEL BUN 28 mg/dL 7 - 22 05/08/2017 [facility] CHEM PANEL Magnesium Lvl 2.6 mg/dL 1.8 - 2.4 05/08/2017 [facility] HEMATOLOGY Monocytes # 0.7 K/CMM 0.0 - 0.8 05/08/2017 [facility] HEMATOLOGY Lymphocytes # 1.1 K/CMM 1.0 - 5.5 05/08/2017 [facility] HEMATOLOGY Lymphocytes 10.8 % 20.0 - 40.0 05/08/2017 [facility] HEMATOLOGY Segs 76.6 % 45.0 - 75.0 05/08/2017 [facility] HEMATOLOGY Eosinophils # 0.6 K/CMM 0.0 - 0.5 05/08/2017 [facility] HEMATOLOGY Basophils 0.3 % 0.0 - 1.0 05/08/2017 [facility] HEMATOLOGY Segs-Bands # 7.8 K/CMM 1.5 - 8.1 05/08/2017 [facility] HEMATOLOGY Monocytes 6.6 % 2.0 - 12.0 05/08/2017 [facility] HEMATOLOGY Eosinophils 5.7 % 0.0 - 4.0 05/08/2017 [facility] HEMATOLOGY WBC 10.2 K/CMM 3.7 - 10.4 05/08/2017 [facility] Hgb 10.8 g/dL 14.0 - 18.0 05/08/2017 [facility] RBC 3.42 M/CMM 4.70 - 6.10 05/08/2017 [facility] HEMATOLOGY Hct 31.6 % 42.0 - 54.0 05/08/2017 [facility] RDW 15.0 % 11.5 - 14.5 05/08/2017 [facility] MCHC 34.2 g/dL 32.0 - 36.0 05/08/2017 [facility] Platelet 98 K/CMM 133 - 450 05/08/2017 [facility] MPV 9.6 fL 7.4 - 10.4 05/08/2017 [facility] MCH 31.6 pg 27.0 - 31.0 05/08/2017 [facility] HEMATOLOGY MCV 92.4 fL 80.0 - 94.0 05/08/2017 [facility] IMMUNOLOGY C-REACTIVE PROTEIN 162.0 mg/L <=2.9 mg/L 05/08/2017 [facility] URINE AND STOOL UA RBC 3 /HPF 0 - 2 05/07/2017 [facility] URINE AND STOOL UA Mucus Few /LPF None Seen /LPF 05/07/2017 [facility] URINE AND STOOL UA Sq Epi Few /LPF Few /LPF 05/07/2017 [facility] URINE AND STOOL UA WBC 103 /HPF 0 - 5 05/07/2017 [facility] URINE AND STOOL UA pH 5.0 5.0 - 8.0 05/07/2017 [facility] URINE AND STOOL UA Protein 30 mg/dL Negative mg/dL 05/07/2017 [facility] URINE AND STOOL UA Glucose Negative mg/dL Negative mg/dL 05/07/2017 [facility] URINE AND STOOL UA Ketones 20 mg/dL Negative mg/dL 05/07/2017 [facility] URINE AND STOOL UA Nitrite Negative (05/06/17 9:13 PM) Negative 05/07/2017 [facility] URINE AND STOOL UA Urobilinogen 4.0 mg/dL 0.1 - 1.0 05/07/2017 [facility] URINE AND STOOL UA Leuk Est Large *ABN* (05/06/17 9:13 PM) Negative 05/07/2017 [facility] URINE AND STOOL UA Bili Negative *NA* (05/06/17 9:13 PM) Negative 05/07/2017 [facility] URINE AND STOOL UA Blood Moderate *ABN* (05/06/17 9:13 PM) Negative 05/07/2017 [facility] URINE AND STOOL UA Color Yellow *NA* (05/06/17 9:13 PM) Yellow 05/07/2017 [facility] URINE AND STOOL UA Turbidity Slight *ABN* (05/06/17 9:13 PM) Clear 05/07/2017 [facility] URINE AND STOOL UA Spec Grav 1.025 <=1.030 05/07/2017 [facility] HEMATOLOGY Sed Rate 55 mm/h 0 - 15 05/06/2017 [facility] IMMUNOLOGY SCL- 70 Ab null <=0.9 AI 05/06/2017 [facility] IMMUNOLOGY RF Qnt null 0 - 20 05/06/2017 [facility] IMMUNOLOGY YULIYA Negative 1 (05/06/17 3:26 PM) Negative 05/06/2017 Result Comment: Because the YULIYA was Negative, the Reflex assays for Anti-dsDNA, SM/DUST SAMPLER, and Ro/La (SSA/SSB) were not performed. [facility] IMMUNOLOGY C-REACTIVE PROTEIN 183.0 mg/L <=2.9 mg/L 05/06/2017 [facility] CHEM PANEL eGFR 82 mL/min/1.73m2 05/06/2017 Result Comment: The eGFR is calculated using the CKD-EPI formula. In most young, healthy individuals the eGFR will be >90 mL/min/1.73m2. The eGFR declines with age. An eGFR of 60-89 may be normal in some populations, particularly the elderly, for whom the CKD-EPI formula has not been extensively validated. Use of the eGFR is not recommended in the following populations: Individuals with unstable creatinine concentrations, including patients and those with serious co-morbid conditions. Patients with extremes in muscle mass or diet. The data above are obtained from the National Kidney Disease Education Program (NKDEP) which additionally recommends that when the eGFR is used in patients with extremes of body mass index for purposes of drug dosing, the eGFR should be multiplied by the estimated BMI. [facility] CHEM PANEL Potassium Lvl 3.3 meq/L 3.5 - 5.1 05/06/2017 [facility] CHEM PANEL Sodium Lvl 140 meq/L 135 - 145 05/06/2017 [facility] CHEM PANEL Chloride Lvl 101 meq/L 95 - 109 05/06/2017 [facility] CHEM PANEL Calcium Lvl 7.3 mg/dL 8.5 - 10.5 05/06/2017 [facility] CHEM PANEL CO2 30 meq/L 24 - 32 05/06/2017 [facility] CHEM PANEL Glucose Lvl 107 mg/dL 70 - 99 05/06/2017 [facility] CHEM PANEL Creatinine Lvl 0.82 mg/dL 0.50 - 1.40 05/06/2017 [facility] CHEM PANEL BUN 36 mg/dL 7 - 22 05/06/2017 [facility] CHEM PANEL AGAP 12.3 meq/L 10.0 - 20.0 05/06/2017 [facility] RDW 15.3 % 11.5 - 14.5 05/06/2017 [facility] Platelet 84 K/CMM 133 - 450 05/06/2017 [facility] MPV 8.5 fL 7.4 - 10.4 05/06/2017 [facility] MCV 91.5 fL 80.0 - 94.0 05/06/2017 [facility] MCHC 33.7 g/dL 32.0 - 36.0 05/06/2017 [facility] MCH 30.8 pg 27.0 - 31.0 05/06/2017 [facility] WBC 12.4 K/CMM 3.7 - 10.4 05/06/2017 [facility] Hgb 12.4 g/dL 14.0 - 18.0 05/06/2017 [facility] RBC 4.02 M/CMM 4.70 - 6.10 05/06/2017 [facility] Hct 36.8 % 42.0 - 54.0 05/06/2017 [facility] Chest wo contrast CT Chest wo contrast CT Chest wo contrast CT CLINICAL HX: [place] - CT DLP - 1383.11 mGycm - hypoxemic, prob chronic, ?ild; patient recently had sx and is allergic to iodine - having shortness of breath - possible PE. COMPARISON: Chest one view 05/05/2017 TECHNIQUE: Contiguous transaxial images of the chest were performed without IV contrast. High-resolution images at 1 cm intervals are also available for review. Reformats are available in sagittal and coronal projections. FINDINGS: SUPPORT DEVICES: none LOWER NECK: Symmetric appearance of thyroid gland without focal abnormality. LUNGS AND AIRWAYS: Routine and high-resolution images reveal diffuse increase in curvilinear reticular opacities throughout both lungs. Accompanying hazy groundglass opacities are also present, most prevalent in the left lower lobe. There is honeycombing noted along the periphery of both lungs. 12 mm partially fatty density and partially soft tissue density nodule is visualized in the right lower lobe. 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 There is pleural thickening versus minimal pleural fluid at left lung base posteriorly. The trachea and the proximal bronchi are patent. CARDIOVASCULAR: The cardiac size is normal. Coronary artery calcifications. The aorta demonstrates normal caliber. LYMPH NODES: Evaluation is limited due to lack of IV contrast. Multiple mildly enlarged lymph nodes, up to 14 mm, are identified in the anterior mediastinum including right paratracheal, precarinal and AP window locations. A few lymph nodes are noted in the right hilum. SOFT TISSUE AND BONES: . No significant bony abnormality is noted. ESOPHAGUS AND UPPER ABDOMEN: The esophagus demonstrates normal morphology. Limited images of the upper abdomen are unremarkable IMPRESSION: Findings are consistent with the clinical diagnosis of advanced interstitial lung disease. Though nonspecific, more common differential considerations would include UIP and collagen vascular diseases. Mild nonspecific lymphadenopathy is visualized in the right anterior mediastinum and right hilar locations. 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 Pleural thickening versus minimal pleural fluid left lung base posteriorly. SL: [id number] 05/06/2017 - - Read by: Fredrick Bernardo MD Dictated Date/time: 05/06/17 15:24 Electronically Signed by: Fredrick Bernardo MD 05/06/17 15:37 FINAL REPORT [facility] Lung ventilation/perfusion scan [place] Lung ventilation/perfusion scan [place] Lung ventilation/perfusion scan [place] CLINICAL HX: - hip fx, hypoxemic. COMPARISON: Chest one view 05/05/2017 TECHNIQUE: 10 millicuries of Xenon 133 were administered for the ventilation study and images obtained in the posterior projection. 6 millicuries of Technetium 99m MAA were administered intravenously for the perfusion study and images obtained in multiple projections. IV Site: Left Antecubital FINDINGS: Tracer activity is physiologic in distribution on the ventilation images. Normal ventilation is noted on the initial breath and equilibrium phases. There is no significant delay in washout of tracer. The perfusion images demonstrate physiologic tracer activity. No focal segmental ventilation/perfusion mismatches are visualized. IMPRESSION: Low probability for acute pulmonary emboli. SL: [id number] 05/06/2017 - - Read by: Fredrick Bernardo MD Dictated Date/time: 05/06/17 14:54 Electronically Signed by: Fredrick Bernardo MD 05/06/17 14:55 FINAL REPORT [facility] Ankle 2 views DX Ankle 2 views DX Study: 2 views of left ankle joint History: Fall Comments: Decreased bone mineralization. No acute fracture or dislocation. Old fracture at the tip of the medial malleolus. IMPRESSION: No acute fracture or dislocation. 05/05/2017 - - Read by: Mary Anne Harris MD Dictated Date/time: 05/06/17 00:37 Electronically Signed by: Mary Anne Harris MD 05/06/17 00:38 FINAL REPORT [facility] CARDIAC ENZYMES BNP 168 pg/mL <=100 pg/mL 05/05/2017 [facility] CHEM PANEL ALT 30 unit/L 0 - 65 05/05/2017 [facility] CHEM PANEL AST 31 unit/L 0 - 37 05/05/2017 [facility] CHEM PANEL Alk Phos 58 unit/L 39 - 136 05/05/2017 [facility] CHEM PANEL Bili Total 1.4 mg/dL 0.2 - 1.3 05/05/2017 [facility] CHEM PANEL B/C Ratio 29 6 - 25 05/05/2017 [facility] CHEM PANEL Globulin 2.8 g/dL 2.7 - 4.2 05/05/2017 [facility] CHEM PANEL A/G Ratio 0.9 0.7 - 1.6 05/05/2017 [facility] CHEM PANEL Total Protein 5.3 g/dL 6.4 - 8.4 05/05/2017 [facility] CHEM PANEL Albumin Lvl 2.5 g/dL 3.5 - 5.0 05/05/2017 [facility] CHEM PANEL Albumin Lvl 2.5 g/dL 3.5 - 5.0 05/05/2017 [facility] CHEM PANEL Total Protein 5.1 g/dL 6.4 - 8.4 05/05/2017 [facility] CHEM PANEL Bili Total 2.1 mg/dL 0.2 - 1.3 05/05/2017 [facility] CHEM PANEL Alk Phos 58 unit/L 39 - 136 05/05/2017 [facility] CHEM PANEL AST 29 unit/L 0 - 37 05/05/2017 [facility] CHEM PANEL ALT 27 unit/L 0 - 65 05/05/2017 [facility] CHEM PANEL B/C Ratio 26 6 - 25 05/05/2017 [facility] CHEM PANEL A/G Ratio 1.0 0.7 - 1.6 05/05/2017 [facility] CHEM PANEL Globulin 2.6 g/dL 2.7 - 4.2 05/05/2017 [facility] HEMATOLOGY Lymphocytes # 0.5 K/CMM 1.0 - 5.5 05/05/2017 [facility] HEMATOLOGY Segs-Bands # 11.4 K/CMM 1.5 - 8.1 05/05/2017 [facility] HEMATOLOGY Eosinophils # 0.4 K/CMM 0.0 - 0.5 05/05/2017 [facility] HEMATOLOGY Monocytes # 0.7 K/CMM 0.0 - 0.8 05/05/2017 [facility] HEMATOLOGY Lymphocytes 4.2 % 20.0 - 40.0 05/05/2017 [facility] HEMATOLOGY Monocytes 5.4 % 2.0 - 12.0 05/05/2017 [facility] HEMATOLOGY Segs 87.2 % 45.0 - 75.0 05/05/2017 [facility] Basophils 0.3 % 0.0 - 1.0 05/05/2017 [facility] Eosinophils 2.9 % 0.0 - 4.0 05/05/2017 [facility] Chest 1view DX Chest 1view DX Patient Name: CRISTIN LAL : 1935; Age: 81 years y/o Male MR: [id number] * CHEST, portable, 1 view HISTORY: Hypoxia, postoperative. COMPARISON: Yesterday. Studies of 05/03/2017, 05/18/2007 and 03/09/2001 were reviewed. IMPRESSION: 1. Slight improvement in diffuse interstitial densities probably representing improving interstitial edema superimposed upon chronic interstitial disease. 2. Underlying chronic obstructive pulmonary disease/interstitial changes. 3. No focal infiltrates or definite pleural effusions. 4. The heart is normal in size. 5. The regional skeleton is unremarkable. SL: [id number] 05/05/2017 - - Read by: Hari Gonzáles MD Dictated Date/time: 05/05/17 09:24 Electronically Signed by: Hari Gonzáles MD 05/05/17 09:26 FINAL REPORT [facility] CARDIAC ENZYMES Total CK 300 unit/L 12 - 191 05/05/2017 [facility] CARDIAC ENZYMES CK MB 2.6 ng/mL 0.5 - 3.6 05/05/2017 [facility] CARDIAC ENZYMES BNP 162 pg/mL <=100 pg/mL 05/05/2017 [facility] CARDIAC ENZYMES Troponin-I 0.10 ng/mL 0.00 - 0.40 05/05/2017 [facility] Chest 1view DX Chest 1view DX EXAM: Chest 1view DX DATE: 05/04/2017 8:18 PM CDT INDICATION: - hypoxia COMPARISON: 05/04/2017. IMPRESSION: Stable mildly enlarged cardiac silhouette. Persistent extensive bilateral interstitial opacities are present may be acute or chronic. No new focal consolidation, significant pleural effusion or pneumothorax. SL: [id number] 05/04/2017 - - Read by: Lake Tesfaye MD Dictated Date/time: 05/04/17 21:06 Electronically Signed by: Lake Tesfaye MD 05/04/17 21:08 FINAL REPORT [facility] Chest 1view DX Chest 1view DX Patient Name: CRISTIN LAL : 1935; Age: 81 years y/o Male MR: [id number] * CHEST, portable, 1 view HISTORY: Hypoxia, postoperative. COMPARISON: Yesterday. Studies of 05/18/2007 and 03/09/2001 were reviewed. IMPRESSION: 1. Markedly increased interstitial pattern probably representing interstitial edema superimposed upon chronic interstitial disease. This could also represent diffuse pneumonia. 2. Underlying chronic obstructive pulmonary disease/interstitial changes. 3. No focal infiltrates or definite pleural effusions. 4. The heart is normal in size. 5. The regional skeleton is unremarkable. SL: [id number] 05/04/2017 - - Read by: Hari Gonzáles MD Dictated Date/time: 05/04/17 18:50 Electronically Signed by: Hari Gonzáles MD 05/04/17 18:51 FINAL REPORT [facility] Hip 2/3 views uni DX Hip 2/3 views uni DX Study: Right hip, 10 views Clinical Indication: fx rt hip/orif rt hip - fluoro time=47sec/Dose=8.16mGy/[id number]#2/Or1 Comparison: Right hip x-ray from 05/03/2017 Finding/impression: Multiple, nondiagnostic intraoperative fluoroscopic views of the right hip show postoperative changes of antegrade intramedullary nail fixation across a right femoral intertrochanteric fracture with apposition of the major fracture fragments. SL: SERENITY 05/04/2017 - - Read by: Quinn Rogers MD Dictated Date/time: 05/04/17 16:06 Electronically Signed by: Quinn Rogers MD 05/04/17 16:07 FINAL REPORT [facility] CHEM PANEL Magnesium Lvl 1.7 mg/dL 1.8 - 2.4 05/04/2017 [facility] HEMATOLOGY Eosinophils # 0.1 K/CMM 0.0 - 0.5 05/04/2017 [facility] URINE AND STOOL UA Mucus Few /LPF None Seen /LPF 05/04/2017 [facility] URINE AND STOOL UA Urobilinogen <=1.0 mg/dL 0.1 - 1.0 05/04/2017 [facility] URINE AND STOOL UA Turbidity Clear (05/03/17 11:05 PM) Clear 05/04/2017 [facility] URINE AND STOOL UA Spec Grav 1.018 <=1.030 05/04/2017 [facility] URINE AND STOOL UA Leuk Est Negative (05/03/17 11:05 PM) Negative 05/04/2017 [facility] URINE AND STOOL UA Nitrite Negative (05/03/17 11:05 PM) Negative 05/04/2017 [facility] URINE AND STOOL UA Sq Epi Occasional /LPF Few /LPF 05/04/2017 [facility] URINE AND STOOL UA WBC 1 /HPF 0 - 5 05/04/2017 [facility] URINE AND STOOL UA RBC 1 /HPF 0 - 2 05/04/2017 [facility] URINE AND STOOL UA Bili Negative *NA* (05/03/17 11:05 PM) Negative 05/04/2017 [facility] URINE AND STOOL UA Ketones Trace mg/dL Negative mg/dL 05/04/2017 [facility] URINE AND STOOL UA Color Yellow *NA* (05/03/17 11:05 PM) Yellow 05/04/2017 [facility] URINE AND STOOL UA Glucose Negative mg/dL Negative mg/dL 05/04/2017 [facility] URINE AND STOOL UA Protein Negative mg/dL Negative mg/dL 05/04/2017 [facility] URINE AND STOOL UA pH 5.0 5.0 - 8.0 05/04/2017 [facility] URINE AND STOOL UA Blood Negative (05/03/17 11:05 PM) Negative 05/04/2017 [facility] BLOOD BANK RESULTS ABO/Rh B POS 05/03/2017 [facility] BLOOD BANK RESULTS Antibody Scrn Negative (05/03/17 6:44 PM) 05/03/2017 [facility] CARDIAC ENZYMES Troponin-I null 0.00 - 0.40 05/03/2017 [facility] HEMATOLOGY PTT 29.9 s 22.9 - 35.8 05/03/2017 [facility] HEMATOLOGY INR 0.91 0.85 - 1.17 05/03/2017 [facility] HEMATOLOGY PT 12.5 s 12.0 - 14.7 05/03/2017 [facility] HEMATOLOGY Basophils # 0.1 K/CMM 0.0 - 0.2 05/03/2017 [facility] Chest 1view DX Chest 1view DX EXAM: Chest 1view DX DATE: 05/03/2017 5:23 PM CDT INDICATION: - evaluate s/p fall COMPARISON: 05/18/2007. IMPRESSION: Stable cardiac silhouette and mediastinum. No focal consolidation, significant pleural effusion or pneumothorax. Interval progression of presumed chronic interstitial lung disease since 05/18/2007. SL: [id number] 05/03/2017 - - Read by: Lake Tesfaye MD Dictated Date/time: 05/03/17 17:55 Electronically Signed by: Lake Tesfaye MD 05/03/17 18:00 FINAL REPORT [facility] Hip 2/3 views uni DX Hip 2/3 views uni DX Study: Frontal view of pelvis and 2 views of right hip joint History: Right hip injury Comments: Decreased bone mineralization. No acute fracture or dislocation in the pelvis. There is an acute nondisplaced intertrochanteric fracture of the right femur. Degenerative changes in the lower lumbar spine and sacral iliac joints. IMPRESSION: No acute fracture or dislocation in the pelvis. Acute nondisplaced intertrochanteric fracture of the right femur. No hip joint dislocation. 05/03/2017 - - Read by: Mary Anne Harris MD Dictated Date/time: 05/03/17 18:12 Electronically Signed by: Mary Anne Harris MD 05/03/17 18:12 FINAL REPORT [facility] Pelvis AP DX Pelvis AP DX Study: Frontal view of pelvis and 2 views of right hip joint History: Right hip injury Comments: Decreased bone mineralization. No acute fracture or dislocation in the pelvis. There is an acute nondisplaced intertrochanteric fracture of the right femur. Degenerative changes in the lower lumbar spine and sacral iliac joints. IMPRESSION: No acute fracture or dislocation in the pelvis. Acute nondisplaced intertrochanteric fracture of the right femur. No hip joint dislocation. 05/03/2017 - - Read by: Mary Anne Harris MD Dictated Date/time: 05/03/17 18:07 Electronically Signed by: Mary Anne Harris MD 05/03/17 18:12 FINAL REPORT [facility] Vital Signs Vital Sign Value Date Comments Source Height 149.86 cm 07/20/2017 [facility] BMI Calculated 40.48 07/20/2017 [facility] Weight 90.909 07/20/2017 [facility] Systolic (mm Hg) 130 05/25/2017 [facility] Diastolic (mm Hg) 81 05/25/2017 [facility] Heart Rate 80 05/25/2017 [facility] Temperature Oral (F) 98.6 F 05/25/2017 [facility] Respitory Rate 16 05/25/2017 [facility] Systolic (mm Hg) 142 05/25/2017 [facility] Diastolic (mm Hg) 71 05/25/2017 [facility] Heart Rate 50 05/25/2017 [facility] Temperature Oral (F) 97.9 F 05/25/2017 [facility] Respitory Rate 16 05/25/2017 [facility] Heart Rate 83 05/25/2017 [facility] Temperature Oral (F) 97.9 F 05/25/2017 [facility] Respitory Rate 14 05/25/2017 [facility] Systolic (mm Hg) 118 05/25/2017 [facility] Diastolic (mm Hg) 68 05/25/2017 [facility] BMI Calculated 24.33 05/12/2017 [facility] Weight 83.636 05/12/2017 [facility] Height 185.4 cm 05/12/2017 [facility] Heart Rate 61 05/12/2017 [facility] Respitory Rate 16 05/12/2017 [facility] Systolic (mm Hg) 137 05/12/2017 [facility] Diastolic (mm Hg) 69 05/12/2017 [facility] Temperature Oral (F) 97.6 F 05/12/2017 [facility] Respitory Rate 16 05/12/2017 [facility] Systolic (mm Hg) 158 05/12/2017 [facility] Diastolic (mm Hg) 70 05/12/2017 [facility] Temperature Oral (F) 98.6 F 05/12/2017 [facility] Respitory Rate 18 05/12/2017 [facility] Heart Rate 60 05/12/2017 [facility] Systolic (mm Hg) 145 05/12/2017 [facility] Diastolic (mm Hg) 68 05/12/2017 [facility] Heart Rate 67 05/12/2017 [facility] Temperature Oral (F) 98.3 F 05/12/2017 [facility] Height 185.42 cm 05/03/2017 [facility] BMI Calculated 23.8 05/03/2017 [facility] Weight 81.818 05/03/2017 [facility] Encounters Location Location Details Encounter Type Encounter Number Reason For Visit Attending Provider ADM Date DC Date Status Source [facility] [id number] Ellis Eugene 10/26/2014 10/27/2014 [facility] Inpatient [id number] Pk Mariee 05/03/2017 05/12/2017 [facility] [id number] Michelet Soliz Jr 05/12/2017 05/25/2017 [facility] Patients [id number] Alex López 06/03/2017 07/03/2017 [facility] [id number] Alex López 07/06/2017 08/05/2017 [facility] Outpatient [id number] Alexandre Kimble 07/20/2017 07/21/2017 [facility] [id number] Ellis Eugene 09/21/2017 09/22/2017 [facility] Outpatient [id number] Alexandre Kimble 12/03/2017 12/04/2017 [facility] Procedures Procedure Code Date Perfomer Comments Source Open reduction of intertrochanteric fracture of femur with internal fixation using intramedullary implant, screw, and cerclage wiring<sup>1</sup> [id number] 05/04/[address] Alex Pfeiffer [facility] Open reduction of intertrochanteric fracture of femur with internal fixation using intramedullary implant, screw, and cerclage wiring<sup>1</sup> [id number] 05/04/[address] Alex Pfeiffer [facility] Open reduction of intertrochanteric fracture of femur with internal fixation using intramedullary implant, screw, and cerclage wiring<sup>1</sup> [id number] 05/04/[address] Alex Pfeiffer [facility] Carpal tunnel release [id number] [facility] Replacement of left knee joint [id number] [facility] Replacement of right knee joint [id number] [facility] Carpal tunnel release [id number] [facility] [place] Replacement of left knee joint [id number] [facility] [place] Replacement of right knee joint [phone] [facility] [place] Carpal tunnel release [id number] [facility] Replacement of left knee joint [id number] [facility] Replacement of right knee joint [phone] [facility]
[2018-09-13 07:50] LABS: STOMATOCYTES SLIGHT
[2018-09-13] MEDS: MIDODRINE 2.5 MG TAB PO SCH ×3 (08:00→16:00)
[2018-09-13] MEDS: LORATADINE 10 MG TAB PO SCH (09:00)
[2018-09-13] MEDS: (Mirabegron (Myrbetriq) 50 MG) PO SCH (09:00)
[2018-09-13] MEDS: BENZONATATE 100 MG CAP PO SCH ×3 (09:00→20:48)
[2018-09-13] MEDS: ASPIRIN 81 MG CHEW TAB PO SCH (09:00)
[2018-09-13] MEDS: CHLORTHALIDONE 25 MG TAB PO SCH (09:00)
[2018-09-13] MEDS: CEFEPIME HCL 1 GM VIAL IV SCH ×2 (10:30→22:28)
[2018-09-13] MEDS: FUROSEMIDE INJ 10 MG/ML 4 ML VIAL IV SCH ×2 (12:00→20:48)
[2018-09-13] MEDS ORDERED: SODIUM CHLORIDE 0.9% 250ML 0 ML ONE (13:42)
[2018-09-13] MEDS: MUPIROCIN 2% OINT 22 GM TUBE TOP SCH (13:52)
[2018-09-13] MEDS: BALSAM PERU/CASTOR OIL 60 GM OINT...G. TP SCH ×2 (13:52→17:47)
[2018-09-13] MEDS: FLUCONAZOLE 100 MG/NS 50 ML 50 ML IV SCH (14:05)
--- NOTE | 2018-09-13 16:43 | Diagnostic Imaging Report ---
PROCEDURE: X-RAY MODIFIED BARIUM SWALLOW COMPARISON: None. INDICATION: Aspiration. DISCUSSION: Fluoroscopic examination was performed in conjunction with speech pathology during swallowing a variety of thin and thick liquid consistencies. Aspiration is noted on provided images. Degenerative changes of the cervical spine. There are multiple missing teeth. CONCLUSION: Aspiration is noted on provided images. Please refer to the speech pathology report for further details. Signed by: Dr. Adamaris Thompson MD on 09/13/2018 4:40 PM
[2018-09-13] MEDS: NOREPINEPHRINE 8 MG/D5W 250 ML 250 ML IV SCH (19:30)
[2018-09-13] MEDS ORDERED: CENTRAL TPN FORMULA 1 BAG IV SCH (20:00)
[2018-09-14] VITALS (15 sets, daily range): BP systolic 95–135; BP diastolic 63–87
[2018-09-14] MEDS: PANTOPRAZOLE INJ 40 MG in SODIUM CHLORIDE 0.9% 50ML 50 ML IV SCH ×5 (02:47→20:31)
[2018-09-14] MEDS: DEXMEDETOMIDINE 200MCG/NS 50ML 50 ML IV SCH (03:30)
[2018-09-14] MEDS: GUAIFENESIN/DEXTROMETHORPHAN LIQD 5 ML UDC NG SCH ×3 (05:23→21:23)
[2018-09-14] MEDS: NYSTATIN SUSPENSION 5 ML UDC PO SCH ×3 (05:23→18:00)
[2018-09-14 05:37] LABS: HEMATOCRIT 34.7 % (38.2-49.6); HEMOGLOBIN 11.2 g/dL (14.0-18.0); MEAN CORPUSCULAR HEMOGLOBIN 31.3 pg (28-32); MEAN CORPUSCULAR HGB CONC 32.3 g/dL (31-35); MEAN CORPUSCULAR VOLUME 96.9 fL (81-99); PLATELET COUNT 155 x10e3/uL (140-360); RED BLOOD COUNT 3.58 x10e6/uL (4.3-5.7); RED CELL DISTRIBUTION WIDTH 16.6 % (11.7-14.4)
[2018-09-14 05:58] LABS: ALANINE AMINOTRANSFERASE 46 IU/L (0-55); ALBUMIN 2.2 g/dL (3.5-5.0); ALBUMIN/GLOBULIN RATIO 0.8 (0.8-2.0); ALKALINE PHOSPHATASE 132 IU/L (40-150); ANION GAP 14.3 mmol/L (8-16); BLOOD UREA NITROGEN 24 mg/dL (7-26); BUN/CREATININE RATIO 27 (6-25); CALCIUM 8.3 mg/dL (8.4-10.2); CARBON DIOXIDE 30 mmol/L (22-29); CHLORIDE 108 mmol/L (98-107); CREATININE, SERUM 0.89 mg/dL (0.72-1.25); EST GLOMERULAR FILTRATION RATE > 60 ML/MIN (60-); GLUCOSE 191 mg/dL (74-118); MAGNESIUM 1.8 MG/DL (1.3-2.1); PHOSPHORUS 3.1 MG/DL (2.3-4.7); POTASSIUM 3.3 mmol/L (3.5-5.1); SODIUM 149 mmol/L (136-145)
[2018-09-14] MEDS ORDERED: SODIUM CHLORIDE 0.9% 250ML 250 ML ONE (06:26)
[2018-09-14] MEDS ORDERED: POTASSIUM CHLORIDE 20MEQ/100ML 100 ML IV ONE (06:30)
[2018-09-14] MEDS ORDERED: PANTOPRAZOLE 40 MG 10ML VIAL ONE (06:39)
[2018-09-14 06:52] LABS: BAND NEUTROPHILS % (MANUAL) 4 %; EOSINOPHILS % (MANUAL) 1 % (0-7); LYMPHOCYTES % (MANUAL) 13 % (19-48); METAMYELOCYTES % (MANUAL) 2 % (0-0); MONOCYTES % (MANUAL) 8 % (3.4-9.0); NEUTROPHILS % (MANUAL) 72 % (40-74); PLATELET ESTIMATE ADEQUATE; PLATELET MORPHOLOGY COMMENT NORMAL; RBC MORPHOLOGY COMMENT NORMAL
[2018-09-14] MEDS: MIDODRINE 2.5 MG TAB PO SCH ×3 (07:12→15:32)
[2018-09-14] MEDS: LORATADINE 10 MG TAB PO SCH (07:12)
[2018-09-14] MEDS: ASPIRIN 81 MG CHEW TAB PO SCH (07:12)
[2018-09-14] MEDS: CHLORTHALIDONE 25 MG TAB PO SCH (07:13)
[2018-09-14] MEDS: BENZONATATE 100 MG CAP PO SCH ×3 (07:13→20:32)
[2018-09-14] MEDS: (Mirabegron (Myrbetriq) 50 MG) PO SCH (07:13)
[2018-09-14] MEDS: BALSAM PERU/CASTOR OIL 60 GM OINT...G. TP SCH ×2 (08:57→18:08)
[2018-09-14] MEDS: MUPIROCIN 2% OINT 22 GM TUBE TOP SCH (08:57)
[2018-09-14] MEDS: FUROSEMIDE INJ 10 MG/ML 4 ML VIAL IV SCH ×2 (08:57→20:43)
[2018-09-14] MEDS: CEFEPIME HCL 1 GM VIAL IV SCH ×2 (09:18→21:38)
[2018-09-14] MEDS: FLUCONAZOLE 100 MG/NS 50 ML 50 ML IV SCH (13:20)
[2018-09-14] MEDS ORDERED: PROPOFOL IV EMULSION 10 MG/ML 50 ML VIAL ONE (17:19)
[2018-09-14] MEDS: NOREPINEPHRINE 8 MG/D5W 250 ML 250 ML IV SCH (19:30)
[2018-09-14] MEDS: CENTRAL TPN FORMULA 1 BAG IV SCH (21:03)
[2018-09-15] MEDS: DEXMEDETOMIDINE 200MCG/NS 50ML 50 ML IV SCH (00:06)
[2018-09-15] MEDS: NYSTATIN SUSPENSION 5 ML UDC PO SCH ×4 (00:39→17:57)
[2018-09-15] MEDS ORDERED: PANTOPRAZOLE 40 MG 10ML VIAL ONE (02:35)
[2018-09-15] MEDS: PANTOPRAZOLE INJ 40 MG in SODIUM CHLORIDE 0.9% 50ML 50 ML IV SCH ×5 (02:43→23:03)
[2018-09-15 03:00] VITALS: BP 104/67
[2018-09-15] MEDS: GUAIFENESIN/DEXTROMETHORPHAN LIQD 5 ML UDC NG SCH ×3 (04:18→23:03)
[2018-09-15 05:48] LABS: ALANINE AMINOTRANSFERASE 36 IU/L (0-55); ALBUMIN/GLOBULIN RATIO 0.6 (0.8-2.0); ALKALINE PHOSPHATASE 122 IU/L (40-150); ANION GAP 16.5 mmol/L (8-16); BLOOD UREA NITROGEN 30 mg/dL (7-26); BUN/CREATININE RATIO 30 (6-25); CALCIUM 8.4 mg/dL (8.4-10.2); CARBON DIOXIDE 27 mmol/L (22-29); CHLORIDE 111 mmol/L (98-107); CREATININE, SERUM 0.99 mg/dL (0.72-1.25); EST GLOMERULAR FILTRATION RATE > 60 ML/MIN (60-); GLUCOSE 146 mg/dL (74-118); PHOSPHORUS 4.5 MG/DL (2.3-4.7); POTASSIUM 3.5 mmol/L (3.5-5.1); SODIUM 151 mmol/L (136-145)
[2018-09-15 07:12] VITALS: BP 118/85
[2018-09-15] MEDS: MIDODRINE 2.5 MG TAB PO SCH ×3 (07:19→16:00)
[2018-09-15] MEDS: BENZONATATE 100 MG CAP PO SCH ×3 (07:20→23:03)
[2018-09-15] MEDS: CHLORTHALIDONE 25 MG TAB PO SCH (07:20)
[2018-09-15] MEDS: (Mirabegron (Myrbetriq) 50 MG) PO SCH (07:20)
[2018-09-15] MEDS: LORATADINE 10 MG TAB PO SCH (07:20)
[2018-09-15] MEDS: ASPIRIN 81 MG CHEW TAB PO SCH (07:20)
[2018-09-15 09:12] VITALS: BP 118/85
[2018-09-15] MEDS: MUPIROCIN 2% OINT 22 GM TUBE TOP SCH (09:18)
[2018-09-15] MEDS: BALSAM PERU/CASTOR OIL 60 GM OINT...G. TP SCH ×2 (09:18→17:57)
[2018-09-15] MEDS: CEFEPIME HCL 1 GM VIAL IV SCH ×2 (09:20→23:03)
[2018-09-15] MEDS: FUROSEMIDE INJ 10 MG/ML 4 ML VIAL IV SCH ×2 (09:20→23:03)
[2018-09-15] MEDS ORDERED: DEXTROSE 5% 1,000 ML IV PRN (10:30)
[2018-09-15] MEDS ORDERED: DIATRIZOATE MEGL/DIATRIZOA SOD 30 ML BTL PO ONE (12:04)
[2018-09-15] MEDS ORDERED: DIATRIZOATE MEGL/DIATRIZOA SOD 120 ML BTL PO ONE (12:04)
--- NOTE | 2018-09-15 13:20 | Progress Note ---
DATE: September 15, 2018 INTERNAL MEDICINE PROGRESS NOTE SUBJECTIVE: The patient is currently in IMCU. He failed his modified barium swallow according to the nursing staff. He is scheduled to have a PEG tube placement later today. He continues to be on TPN. The patient had underlying respiratory failure and was treated for underlying sepsis. He is currently much improved according to the nursing staff. VITALS: Temperature is 92.2, pulse 108, respiratory rate 18, blood pressure 118/85. He is on nasal cannula, 98%, 2 liters. LAB FINDINGS: White count 17, hemoglobin 11.2, hematocrit 35, and platelets 155. Coagulation: PT 13.8, INR 0.97. Chemistry: Sodium 151, potassium 3.5, chloride 111, bicarb 27, anion gap 16, BUN 30, creatinine 0.99, glucose 146, calcium 8.4. Total bilirubin 2. LFTs were normal. Lipase is 11. MICROBIOLOGY: Initial blood cultures showed Klebsiella pneumoniae. Repeat blood cultures were found to be negative. Urine cultures were found to be negative. Sputum culture one was negative. The 2nd one showed Coty albicans. IMAGING STUDIES: Recent modified barium swallow which he showed evidence of aspiration. The last chest x-ray on 09/11/2018 showed worsening edema and/or pneumonia. PHYSICAL EXAMINATION GENERAL: He is in no acute distress. He is alert and oriented times 1. He does not speak much. I am not sure what his true baseline is. HEENT: Head is normocephalic and atraumatic. Eyes: Pupils are equal and reactive to light bilaterally. Extraocular movements are intact bilaterally. NECK: Supple. Good range of motion. THROAT: No evidence of any erythema or exudates in the posterior pharynx. Has poor dentition. PULMONARY: Clear to auscultation bilaterally. No wheezing. No rales. No rhonchi. No crackles appreciated. CARDIOVASCULAR: Positive S1, S2. No murmurs, rubs, or gallops appreciated. ABDOMEN: Soft, nondistended, nontender to palpation. Bowel sounds are present. MUSCULOSKELETAL: Strength is 5/5 throughout. No evidence of any musculoskeletal deficit on examination. No weakness appreciated. NEUROLOGIC: Cranial nerves II through XII are grossly intact. No evidence of any neurological deficit on exam. SKIN: Intact. Warm to touch. Good cap refill. PSYCHIATRIC: At baseline. EXTREMITIES: He has significant lower extremity edema. IMPRESSION 1. Acute respiratory failure. He was intubated, now extubated. Now on nasal cannula. 2. Interstitial lung disease with underlying aspiration pneumonia. 3. Septic shock with bacteremia and aspiration pneumonia. 4. Acute kidney injury. 5. Hypernatremia. 6. Choledocholithiasis. 7. Acute gastrointestinal bleed. 8. Thrombocytopenia secondary to sepsis. PLAN: At this time, there are several consultants following on this case. Of note, pulmonary is following as well as GI and ID. Will continue with IV antibiotics per ID's recommendations. His repeat cultures are found to be negative. In relation to his renal, his creatinine is normal. Sodium is elevated, and D5W has been ordered by the shirt marker. He failed his modified barium swallow. At this time, he is scheduled to have a PEG tube placement by IR. The overall plan of care for this patient is to be discharged to a [facility] facility at [place]. His other labs reviewed have been normal. We will continue with the same plan of care. I am covering for Dr. Tomasz Mata. Will continue with the same plan of care and monitor very closely. Job#: [id number]
--- NOTE | 2018-09-15 13:52 | Diagnostic Imaging Report ---
EXAMINATION: CHEST SINGLE (PORTABLE) INDICATION: Aspiration versus pneumonia. COMPARISON: Chest radiograph 09/13/18. FINDINGS: TUBES and LINES: Interval extubation and removal of enteric tube. Left sided PICC terminates in the expected location of the upper SVC near the brachiocephalic junction. LUNGS: Low lung volumes, but increased aeration compared to prior radiograph. Mild bibasilar opacities and interstitial opacities, improved from the prior study. PLEURA: Interval decrease in size of small bilateral pleural effusions. No evidence of pneumothorax. HEART AND MEDIASTINUM: Cardiomediastinal silhouette is mildly enlarged. BONES AND SOFT TISSUES: No acute osseous lesion. Soft tissues are unremarkable. UPPER ABDOMEN: No free air under the diaphragm. IMPRESSION: Interval extubation and removal of enteric tube. Bibasilar opacities and interstitial opacities, now mild, are improving from the prior radiograph and could reflect edema or pneumonia. Signed by: Dr. Adamaris Thompson MD on 09/15/2018 1:49 PM
[2018-09-15] MEDS ORDERED: BENZOCAINE 20% SPR 60 ML CAN ONE (16:58)
[2018-09-15] MEDS: NOREPINEPHRINE 8 MG/D5W 250 ML 250 ML IV SCH (19:30)
[2018-09-15 19:55] VITALS: BP 114/72
[2018-09-15 20:00] VITALS: BP 114/72
[2018-09-15 21:00] VITALS: BP 114/72
[2018-09-15] MEDS: CENTRAL TPN FORMULA 1 BAG IV SCH (23:03)
[2018-09-16] VITALS (9 sets, daily range): BP systolic 81–118; BP diastolic 56–86
[2018-09-16] MEDS: DEXMEDETOMIDINE 200MCG/NS 50ML 50 ML IV SCH (03:30)
[2018-09-16] MEDS: PANTOPRAZOLE INJ 40 MG in SODIUM CHLORIDE 0.9% 50ML 50 ML IV SCH ×6 (05:28→18:01)
[2018-09-16] MEDS: GUAIFENESIN/DEXTROMETHORPHAN LIQD 5 ML UDC NG SCH ×3 (05:29→22:00)
[2018-09-16] MEDS: NYSTATIN SUSPENSION 5 ML UDC PO SCH ×4 (05:29→17:09)
[2018-09-16 06:14] LABS: ALBUMIN/GLOBULIN RATIO 0.6 (0.8-2.0); ANION GAP 16.2 mmol/L (8-16); CALCIUM 8.3 mg/dL (8.4-10.2); CREATININE, SERUM 1.16 mg/dL (0.72-1.25); POTASSIUM 4.2 mmol/L (3.5-5.1)
[2018-09-16 06:30] LABS: BASOPHILS # (AUTO) 0.3 (0.0-0.1); BASOPHILS % 1.3 % (0.0-1.0); EOSINOPHILS # (AUTO) 0.7 (0.0-0.4); EOSINOPHILS % 3.6 % (0.0-6.0); HEMOGLOBIN 11.8 g/dL (14.0-18.0); LYMPHOCYTES % 10.5 % (18.0-39.1); MEAN CORPUSCULAR HEMOGLOBIN 31.5 pg (28-32); MEAN CORPUSCULAR HGB CONC 31.1 g/dL (31-35); MEAN CORPUSCULAR VOLUME 101.3 fL (81-99); MONOCYTES # (AUTO) 1.6 (0.2-0.8); MONOCYTES % 8.1 % (4.4-11.3); NEUTROPHILS # (AUTO) 14.1 (2.1-6.9); PLATELET COUNT 184 x10e3/uL (140-360); RED BLOOD COUNT 3.75 x10e6/uL (4.3-5.7); RED CELL DISTRIBUTION WIDTH 17.2 % (11.7-14.4)
[2018-09-16] MEDS: ALBUTEROL/IPRATROPIUM 3 ML NEB NEB PRN ×2 (07:50→23:45)
[2018-09-16] MEDS: MIDODRINE 2.5 MG TAB PO SCH ×3 (08:00→16:00)
[2018-09-16 08:14] LABS: BAND NEUTROPHILS % (MANUAL) 3 %; EOSINOPHILS % (MANUAL) 6 % (0-7); LYMPHOCYTES % (MANUAL) 12 % (19-48); METAMYELOCYTES % (MANUAL) 1 % (0-0); MONOCYTES % (MANUAL) 8 % (3.4-9.0); MYELOCYTES % (MANUAL) 1 % (0-0); NEUTROPHILS % (MANUAL) 68 % (40-74)
[2018-09-16 08:15] LABS: PLATELET MORPHOLOGY COMMENT NORMAL
[2018-09-16] MEDS: MUPIROCIN 2% OINT 22 GM TUBE TOP SCH (08:15)
[2018-09-16 08:16] LABS: ANISOCYTOSIS MODERATE; PLATELET ESTIMATE ADEQUATE; RBC MORPHOLOGY COMMENT ABNORMAL
[2018-09-16] MEDS: FUROSEMIDE INJ 10 MG/ML 4 ML VIAL IV SCH ×2 (08:30→21:00)
[2018-09-16] MEDS: ASPIRIN 81 MG CHEW TAB PO SCH (09:00)
[2018-09-16] MEDS: BENZONATATE 100 MG CAP PO SCH ×3 (09:00→21:00)
[2018-09-16] MEDS: LORATADINE 10 MG TAB PO SCH (09:00)
[2018-09-16] MEDS: CHLORTHALIDONE 25 MG TAB PO SCH (09:00)
[2018-09-16] MEDS: (Mirabegron (Myrbetriq) 50 MG) PO SCH (09:00)
[2018-09-16] MEDS: BALSAM PERU/CASTOR OIL 60 GM OINT...G. TP SCH ×2 (10:30→17:09)
[2018-09-16] MEDS: CEFEPIME HCL 1 GM VIAL IV SCH ×2 (11:30→23:10)
--- NOTE | 2018-09-16 13:33 | Progress Note ---
DATE: September 16, 2018 MEDICINE PROGRESS NOTE SUBJECTIVE: I am covering for Dr. Tomasz Mata. Patient is at same baseline. He was in the process of putting a PEG tube where it was very difficult in which they inserted a Dobbhoff but the patient removed it. At this time GI recommends a surgical consult for them to insert the PEG tube for feeding. Patient failed his swallowing eval with the speech therapist. OBJECTIVE VITAL SIGNS: His temperature is 98.8, pulse 98, respiratory rate is 20, blood pressure 103/73, pulse ox 99% on 2 liters nasal cannula. LAB FINDINGS: Show white count is 19.3, hemoglobin 11.8, hematocrit is 38 and platelets of 184. CHEMISTRY: Sodium 147, potassium 4.2, chloride 113, bicarb 22, anion gap of 16, BUN is 41, creatinine is 1.1, glucose is 138, calcium is 8.3. Total bilirubin is 2.1. His LFTs, his AST is 38, ALT is 31, alk phos 127. His CA19-9 was 98, slightly elevated. Lipase level was 11, and urinalysis was none. MICROBIOLOGY: Blood and urine culture repeats have all been negative except for the initial blood culture on August 25, 2018, klebsiella. IMAGING STUDIES: The chest x-ray this morning shows bibasilar opacity and interstitial opacities, now mild, are improving from the prior radiographic study. There was some edema or pneumonia. PHYSICAL EXAMINATION GENERAL: Not in acute distress. Alert, oriented x1, cooperative on exam. HEENT: Head: Normocephalic, atraumatic. Eyes: Pupils equally round and reactive to light bilaterally. Extraocular movements intact bilaterally. Neck was supple with good range of motion. Throat: No evidence of any erythema or exudates in the posterior pharynx. Has poor dentition. PULMONARY: Clear to auscultation bilaterally. No wheezing, no rales, no rhonchi, no crackles appreciated. CARDIOVASCULAR: Positive S1/S2. No murmurs, rubs or gallops appreciated. ABDOMEN: Soft, nondistended, nontender to palpation. Bowel sounds present. MUSCULOSKELETAL: Unable to assess. Patient is not cooperative. NEUROLOGICAL: Unable to assess as the patient is not cooperative. SKIN: Intact. Warm to touch. Good capillary refill. PSYCHIATRIC: At baseline. EXTREMITIES: He does have some lower extremity edema. IMPRESSION 1. Acute respiratory failure. Was intubated, now extubated, now on nasal cannula in IMU. 2. Interstitial lung disease with underlying aspiration pneumonia. 3. Septic shock with bacteremia and aspiration pneumonia. 4. Acute kidney injury. 5. Hypernatremia. 6. Choledocholithiasis. 7. Acute gastrointestinal bleed. 8. Thrombocytopenia secondary to sepsis. PLAN: At this time patient is on IV antibiotics in which GI and ID are following. There is no more further workup needed from that side. In relation to his renal function, it seems to have improved tremendously, but his sodium is still slightly elevated in which we will continue with the same regimen of D5W. Once again patient failed his modified barium swallow in which GI recommends a Dobbhoff, but the patient removed the Dobbhoff and at this time they recommend a surgical consultation for the insertion of a PEG tube for nutrition. General Surgery has been notified and will talk with the family further. At this time it seems like the family may be in agreement but want to discuss this with their father. Otherwise the plan of care is to discharge to a senior living facility. Job#: [id number] OMAR
[2018-09-16] MEDS ORDERED: CENTRAL TPN FORMULA 1 BAG IV SCH ×2 (14:30→20:00)
--- NOTE | 2018-09-16 14:43 | Progress Note ---
DATE: September 16, 2018 TIME OF VISIT: 1:00 o'clock p.m. PULMONARY PROGRESS NOTE SUBJECTIVE AND EVENTS: There was an attempt by interventional radiology to place a feeding tube yesterday. This was after the failed feeding tube attempt by GI. Interventional radiology was unable to place the feeding tube. An attempt at Dobbhoff was done, but this was subsequently pulled out. It has been recommended by GI and interventional to attempt a surgical feeding tube, and Dr. Delgado has been consulted. REVIEW OF SYSTEMS: The patient is not really answering any questions today. His daughter is at bedside with the nurse and speech therapist. He still has difficulty clearing secretions. OBJECTIVE VITAL SIGNS: He is afebrile. Temperature is 98.8. Heart rate is irregular at times. It is anywhere from the 90s up to the 1 teens. Blood pressure 103/73. He is 99% when he wears his nasal cannula at 2 liters, and when he takes it off he is in the low to mid 90s. GENERAL APPEARANCE: This is an elderly man. He is not in any respiratory distress. He is not speaking, but he is awake and alert. He is purposeful, moving all of his extremities. He has ten off his oxygen, and when you put it back on him he will try to pull it again. HEENT: Head is otherwise normocephalic, and his mucous membranes are moist. NECK: Supple. CHEST: Some rales and some rhonchi. HEART: Regular rate and rhythm without murmurs, rubs or gallops. ABDOMEN: Soft and nontender. EXTREMITIES: Edema. NEUROLOGIC: He is awake, alert. He is hoarse. DATA: His white count is up to 19,000 from 17,000. Hemoglobin and hematocrit are 11 and 38%. MCV 101. Platelets 184,000. Sodium 147, has improved from yesterday. His potassium 4.2. Chloride 113. Carbon dioxide 22. BUN and creatinine are 41 and 1.6. Glucose is 138. Total bilirubin is stable around 2.1. AST and ALT have normalized just about. His albumin remains 2.0. He had a chest x-ray done yesterday afternoon that again shows interval extubation removal of the enteric tube. He still has bilateral interstitial opacities with some improvement. ASSESSMENT 1. [id number] hypoxemic respiratory failure. He is near his baseline on the nasal cannula oxygen. 2. Severe dysphagia with unsuccessful attempts to place an enteric feeding tube by GI and interventional radiology. Surgery has been consulted. 3. Severe hypoproteinemia. 4. Hypernatremia, improved. 5. Status post gram-negative sepsis secondary to acute cholecystitis. 6. Cardiomyopathy with mildly depressed ejection fraction. 7. Baseline interstitial lung disease with chronic hypoxemic respiratory failure. RECOMMENDATIONS AND PLAN: For now, we will continue the TPN. I think his leukocytosis may be related to recurrent aspiration. I have had an extensive discussion with the daughter who was present and asking about his condition. She wanted to know if the feeding tube was necessary. We discussed that it was, depending on goals of care. He does need stable nutrition source and TPN is not a long-term viable option, placing him at risk for complications such as invasive fungemia, etc. Her thoughts were relating to that he was tired and maybe did not want to do this any more. We discussed previous conversation that I had with him and his , i.e. her mother, that took place in the ICU last week after extubation where the patient kept taking his oxygen off and desaturating. At that time, we discussed the risk of possible reintubation from hypoxemia, since he was not as stable, and the patient motioned that he did not want that, again he was nonverbal. Then we discussed that he could without intubation, and he gave a positive gesture that was okay. However, this the day after his 62rd anniversary and the basically told him not to be silly. We discussed placement of the feeding tube surgically that he may be able to tolerate it or he may again have respiratory failure, which could lead to the possibility of tracheostomy. She asked what would happen if we did not do that. We discussed comfort measures and hospice. Again, the patient's was not present today. We did discuss the wishes and what she thought, and she seemed to favor more of comfort care and possibly hospice, but wanted to talk it over with her other sister and brother as well as mother this weekend. She feels, and I concur, that this is a very difficult situation for Mrs. Mota. The patient was seen. The nurse, Marianna, was present. The case was also discussed with Dr. Mariee who is covering for Dr. Mata. Total time spent including family discussion 35 minutes. Job#: [id number] GH
[2018-09-16] MEDS: NOREPINEPHRINE 8 MG/D5W 250 ML 250 ML IV SCH (19:30)
[2018-09-16 19:39] LABS: FREE THYROXINE INDEX 1.9878 (1.4-3.8); THYROID STIMULATING HORMONE 1.101 uIU/mL (0.350-4.940)
--- NOTE | 2018-09-16 20:06 | Consultation ---
DATE OF CONSULTATION: September 16, 2018 NEUROLOGY CONSULT NOTE HISTORY OF PRESENT ILLNESS: Unfortunately, Mr. Lal is encephalopathic and unable to provide medical history. History is provided by his and daughter, who are at the bedside. Mr. Lal is in the midst of a 3-week long hospitalization. During this hospitalization, the patient experienced abdominal pain, which was attributed to cholelithiasis and cholecystitis. He underwent stone retrieval with stent placement, and ultimately underwent a cholecystectomy. Following these procedures, the patient was given food by family despite instructions not to do so because the patient was experiencing dysphagia. Mr. Lal developed aspiration pneumonia, requiring intubation and admission to the intensive care unit for several days. Mr. Lal was subsequently extubated and transferred to the intermediate care unit. The patient no longer requires supplemental oxygen or other assistance with breathing except on an as needed basis. He continues to receive intravenous antibiotics for presumed aspiration pneumonia. Despite this, his white blood cell count has increased by several points over the last 2 to 3 days. Lastly, multiple attempts have been made to place a PEG tube during this patient's hospitalization; all were unsuccessful. Hospital staff have been unable to pass an NG tube. Therefore, the patient is not able to receive anything by mouth. Over the past few days, the patient's family have noticed Mr. Lal is "not himself." The patient is not talking. He will occasionally nod his head yes to a question. Mr. Lal has appeared agitated. He is constantly trying to remove his EKG leads, his nasal cannula, and his IV access. His daughter reports the patient is "fidgeting." Mr. Lal is constantly moving and trying to pull off the hospital down or moving his covers. At his baseline, the patient is independent in his activities of daily living - bathing, grooming, dressing, and toileting. Mr. Lal does ambulate with the assistance of a walker. Neither the patient's nor his daughter report the patient forgetting the names of family members or close friends, misplacement of items, or repetition of questions/stories. Mr. Lal lives with his in a house. Prior to 2 to 3 months ago, the patient would mow the lawn and perform other yard work every week. However, due to progressively worsening back pain and limited mobility, the patient has not done this for the past 2 to 3 months[address] Mr. Lal continues to drive. He has not become lost in familiar areas nor has he had any accidents within the past year. The patient's manages the household finances and has always done so. Mr. Lal schedules and keeps his own appointments. He is responsible for managing his medications at home. Often times, he reminds his to take her medications. Neither the patient's nor his daughter nor any other family members or friends have expressed concern regarding the patient's cognitive function. REVIEW OF SYSTEMS: Unable to assess secondary to the patient being encephalopathic. PAST MEDICAL HISTORY: Prior history of hypertension, hyperlipidemia, atrial fibrillation, pulmonary fibrosis, osteoarthritis, gastroesophageal reflux disease, recurrent diverticulitis, chronic low back pain, spinal stenosis. PAST SURGICAL HISTORY: Partial colectomy secondary to diverticulitis, multiple lumbar spine procedures, repair of a left hip fracture, bilateral knee replacements, tonsillectomy, cholecystectomy, bilateral cataract removal. PAST HOSPITALIZATIONS: Surgeries/procedures as listed. FAMILY MEDICAL HISTORY: The patient's paternal and maternal grandparents are . Their medical histories are unknown. The patient's father is . His medical history is unknown. Patient's mother is . She had diabetes mellitus and congestive heart failure. Mr. Lal had 2 siblings, a sister and a brother. The sister is alive and has possible dementia. The patient's brother is alive, but his medical history is unknown. Mr. Lal has 3 children, 2 daughters and 1 son, all of whom are alive and healthy. SOCIAL HISTORY: Ms. Lal is . He is retired. The patient does have a prior history of tobacco use, but quit smoking cigarettes 30+ years ago. The patient's family endorses occasional alcohol use. There is no reported current or prior recreational drug use. HOME MEDICATIONS 1. Aspirin 81 mg by mouth daily. 2. Celebrex 200 mg by mouth daily. 3. Zyrtec 10 mg by mouth daily. 4. Hydrocodone/acetaminophen 5-325 mg - 1 tablet by mouth twice daily as needed for pain. 5. Leflunomide 10 mg by mouth daily. 6. Myrbetriq 50 mg by mouth daily. 7. Protonix 40 mg by mouth daily. 8. Bactrim 1 tablet by mouth twice daily. ALLERGIES: NO KNOWN DRUG ALLERGIES. NO KNOWN FOOD ALLERGIES. NO KNOWN ALLERGIES TO LATEX. MR. LAL DOES HAVE A DOCUMENTED ALLERGY TO IODINE. PHYSICAL EXAMINATION VITAL SIGNS: Height 69 inches, weight 173 pounds, BMI 25.6 kg/m2. Blood pressure 103/73 mmHg, pulse 98 beats per minute, respiratory rate 20 breaths per minute, oxygen saturation 99% on room air. GENERAL: The patient is awake and alert, does not appear distressed. HEENT: Normocephalic, atraumatic. Pupils are surgical. Moist mucous membranes. NECK: Supple. No appreciable thyromegaly. No appreciable carotid bruits. CARDIOVASCULAR: S1, S2, tachycardic. No murmurs, rubs, or gallops. RESPIRATORY: Coarse rhonchi throughout and inspiratory wheezing at the bases anteriorly. EXTREMITIES: The skin is warm and dry. No clubbing, cyanosis, or edema. The posterior tibial and dorsalis pedis pulses are 1+ and symmetric. SKIN: Abrasions over the arms and legs covered with gauze/Tegaderm. NEUROLOGIC Memory/Attention: The patient is awake and alert. He does not answer orientation questions nor does he follow commands. Cranial Nerves: Pupils are surgical. Mr. Lal blinks both eyes to confrontation. Extraocular movements are grossly intact. The face appears symmetric. Strength: Bulk is diminished, especially in the legs. Mr. Lal moves both arms and both legs spontaneously and symmetrically. Tone is normal. DTRs: Deep tendon reflexes are 1+ and symmetric at the triceps, biceps, and brachioradialis. Deep tendon reflexes are absent and symmetric at the patellas and Achilles. Plantar responses are mute bilaterally. Sensation: Sensation is grossly intact to light touch in both arms and both legs. Cerebellar: Unable to assess secondary to the patient being encephalopathic. Gait: Deferred. Speech: No verbalization. Involuntary Movements: None. Pronator Drift: As per motor exam. LABORATORY DATA: The patient's most recent comprehensive metabolic panel reveals an elevated sodium level of 147, an elevated chloride level of 113, an elevated anion gap of 16.2, an elevated BUN of 41, a BUN to creatinine ratio 35, an elevated serum glucose of 138, a mildly decreased calcium level of 8.3, a mildly elevated total bilirubin level of 2.1, an elevated AST of 38, a low total protein of 5.4, a low albumin of 2.0. B-natriuretic peptide drawn on July 14, 2018 is 207.9. The most recent CBC with differential and platelets reveals a white blood cell count of 19.33 with 73.0% neutrophils, 10.5% lymphocytes, 8.1% monocytes, 3.6% eosinophils, and 1.3% basophils. The hemoglobin and hematocrit are 11.8 and 38.0, respectively. The platelet count is 184. C. difficile toxin A and B was negative on 09/04/2018 and 09/14/2018. On August 29, 2018, H. pylori IgG antibody was 0.31, IgA antibody was less than 9.0, and IgM antibody was less than 9.0. On August 26, 2018, hepatitis A IgM antibody was negative, hepatitis B surface antigen was negative, hepatitis B core IgM antibody was negative. On August 26, 2018, hepatitis C antibody was less than 0.1. A blood culture on August 25, 2018 grew Klebsiella pneumonia. A second blood culture collected on that date showed no growth after 5 days. A urine culture collected on August 25, 2018 showed no growth after 36 to 48 hours. Repeat blood cultures collected on August 27, 2018 and September 04, 2018 showed no growth after 5 days. A repeat urine culture collected on September 04, 2018 showed no growth at 36 to 48 hours. A sputum culture collected on September 04, 2018 revealed usual respiratory jesus. A sputum culture collected on September 06, 2018 grew Coty albicans. DIAGNOSTIC STUDIES: Electrocardiogram, 09/03/2018: Sinus tachycardia at 126 beats per minute. Chest CT, 08/25/2018: Findings of fibrotic interstitial lung disease in UIP pattern. Fat-containing 1.3 cm nodule in the right lung base could represent a hamartoma. Abdomen ultrasound, 08/26/2018: 1. Stones and sludge within a prominent gallbladder. 2. Common bile duct at the upper limits of normal in size. MRCP, 08/26/2018: 1. A 0.6 mm filling defect in the distal common bile duct, consistent with choledocholithiasis. 2. Distal common bile duct is irregular near the pancreatic head and does not completely join the pancreatic duct. This is concerning for pancreatic neoplasm or cholangiocarcinoma. Recommend ERCP. ERCP, 08/27/2018: ERCP was performed. No residual feeling defects identified in the common bile duct. Initial images demonstrate irregularity of the distal common bile duct with subsequent balloon sweeping/dilatation. CT of the brain without contrast, 09/01/2018: On my review, there is no evidence of recent large territorial ischemia, hemorrhage, mass, or mass effect. Cerebral volume is decreased, but appropriate for age. There are findings compatible with [id number] chronic small vessel ischemic disease. MRI of the brain without contrast, 09/01/2018: On my review, there is no evidence of recent large territorial ischemia, hemorrhage, mass, or mass effect. Diffuse cerebral atrophy is appreciated, but is appropriate for age. There are multiple scattered confluent T2/FLAIR hyperintense foci of the supratentorial and infratentorial deep white matter compatible with severe chronic small vessel ischemic disease. CT abdomen and pelvis, 09/04/2018: 1. No acute intra-abdominal or pelvic abnormality. 2. Lung bases demonstrate interstitial edema on the background of interstitial lung disease. 3. Biliary stent, Brown catheter, infrarenal IVC filter, and left femoral arterial line present. Modified barium swallow, 09/13/2018: Aspiration is noted on provided images. Please refer to the speech pathology report for further details. Chest x-ray, 09/15/2018: 1. Interval extubation and removal of enteric tube. 2. Bibasilar opacities and interstitial opacities, now mild, are improving from the prior radiograph and could reflect edema or pneumonia. ASSESSMENT AND PLAN: Mr. Lal is an 83-year-old agun-hshy-wbwtsjnr man with multiple medical problems in the midst of a prolonged hospitalization with multiple medical problems as detailed in the history of present illness. The neurology service was consulted for evaluation and treatment of encephalopathy. On neurological examination, the patient is markedly encephalopathic. Otherwise, his neurological examination appears to be nonfocal. The patient's laboratory data and multiple diagnostic studies have been reviewed and are documented above. At present, Mr. Lal is actively infected and septic. This is the probable source of his encephalopathy; however, other common causes of metabolic encephalopathy should be excluded. Recommendations are as follows: 1. Laboratory data will be ordered to evaluate for treatable causes of encephalopathy. These will include: Thyroid function test, an ammonia level, a vitamin B1 level, a vitamin B12 level, RPR, a urine culture, sputum culture, and blood cultures. 2. A CT of the brain without contrast has been ordered and is pending. 3. A routine EEG will be performed to rule out seizure activity. 4. Listed amongst the patient's home medications is a leflunomide, an immunosuppressant. This medication has been discontinued; however, simply discontinuing the medication will not eliminate its effects. Once GI access is established, Mr. Lal will require treatment with Questran 4 g by mouth 3 times daily to remove the leflunomide from his system. 5. Avoid sedative/hypnotic and pain medications as these will alter the patient's sensorium. 6. Utilize environmental cues to combat delirium. 7. Defer treatment of the remaining medical comorbidities to the primary and other services following the patient. Thank you for this consultation. I will continue to follow the patient while he remains in the hospital. TIME SPENT: 70 minutes. Job#: [id number] LISSETTE ANDREA
--- NOTE | 2018-09-16 21:07 | Diagnostic Imaging Report ---
Exam: Head CT without contrast History: Altered mental status Comparison studies: Head CT of 09/04/[address] and brain MRI 09/01/2020 Technique: Axial images were obtained from the skull base to the vertex. Coronal and sagittal images reconstructed from the axial data. Dose modulation, iterative reconstruction, and/or weight based adjustment of the mA/kV was utilized to reduce the radiation dose to as low as reasonably achievable. Radiation dose: Total DLP: 921 mGy*cm. Estimated effective dose: DLP x 0.015 Intravenous contrast: None Findings: Scalp: No abnormalities. Bones: No fractures, blastic or lytic lesions. Brain sulci: Mildly prominent. Ventricles: Moderate compensatory dilatation. No hydrocephalus. Extra-axial spaces: No masses, no fluid collection. Parenchyma: No mass, acute hemorrhage or acute or chronic cortical vascular insults. Confluent hypodensities in the supratentorial white matter are nonspecific most compatible with chronic microvascular ischemic changes. Cannot adequately evaluate for potential acute subcortical ischemia in the context of severe white matter changes. Sellar/suprasellar region: No abnormalities. Craniocervical junction: Patent foramen magnum. No Chiari one malformation. Included. We'll sinuses: Left frontal sinus, left maxillary sinus and right sphenoid sinus are nearly completely opacified and contain fluid levels. Right frontal sinus, bilateral ethmoid air cells and right maxillary sinus are partially opacified and likewise contains fluid/secretions. Incidental findings: Atherosclerotic calcifications in the carotid siphons and intradural vertebral arteries. Bilateral lens replacements related to previous cataract surgery. IMPRESSION: 1. No acute intracranial abnormalities. 2. New sinus opacification could be correlated for acute sinusitis. 3. No other changes from the previous head CT of 09/04/2018. 4. Moderate generalized volume loss and severe chronic microvascular ischemic changes. Signed by: Dr. Ellis Oscar M.D. on 09/16/2018 9:03 PM
[2018-09-16 23:09] LABS: BILIRUBIN,URINE NEGATIVE (NEGATIVE); CLARITY,URINE SL CLOUDY (CLEAR); COLOR,URINE YELLOW (YELLOW); KETONES,URINE NEGATIVE (NEGATIVE); LEUKOCYTE ESTERASE ,URINE 1+ (NEGATIVE); NITRITE,URINE NEGATIVE (NEGATIVE); PROTEIN,URINE DIPSTICK 1+ (NEGATIVE); URINE UROBILINOGEN 0.2 mg/dL (0.2 - 1)
[2018-09-16 23:10] LABS: BACTERIA,URINE FEW /HPF; EPITHELIAL CELLS,URINE RARE /LPF; YEAST,URINE FEW
[2018-09-17] VITALS (8 sets, daily range): BP systolic 89–115; BP diastolic 31–83
[2018-09-17] MEDS: DEXMEDETOMIDINE 200MCG/NS 50ML 50 ML IV SCH (01:40)
[2018-09-17 04:40] LABS: BASOPHILS # (AUTO) 0.2 (0.0-0.1); BASOPHILS % 0.9 % (0.0-1.0); EOSINOPHILS # (AUTO) 0.6 (0.0-0.4); EOSINOPHILS % 3.5 % (0.0-6.0); HEMATOCRIT 33.4 % (38.2-49.6); HEMOGLOBIN 10.4 g/dL (14.0-18.0); LYMPHOCYTES # (AUTO) 1.6 (1.0-3.2); LYMPHOCYTES % 10.2 % (18.0-39.1); MEAN CORPUSCULAR HEMOGLOBIN 31.1 pg (28-32); MEAN CORPUSCULAR HGB CONC 31.1 g/dL (31-35); MONOCYTES # (AUTO) 1.2 (0.2-0.8); MONOCYTES % 7.3 % (4.4-11.3); NEUTROPHILS # (AUTO) 12.1 (2.1-6.9); NEUTROPHILS % 76.1 % (38.7-80.0); PLATELET COUNT 224 x10e3/uL (140-360); RED BLOOD COUNT 3.34 x10e6/uL (4.3-5.7); RED CELL DISTRIBUTION WIDTH 16.7 % (11.7-14.4)
[2018-09-17 05:01] LABS: ANION GAP 12.6 mmol/L (8-16); BLOOD UREA NITROGEN 45 mg/dL (7-26); BUN/CREATININE RATIO 42 (6-25); CALCIUM 8.2 mg/dL (8.4-10.2); CARBON DIOXIDE 23 mmol/L (22-29); CHLORIDE 116 mmol/L (98-107); CREATININE, SERUM 1.08 mg/dL (0.72-1.25); EST GLOMERULAR FILTRATION RATE > 60 ML/MIN (60-); GLUCOSE 125 mg/dL (74-118); POTASSIUM 3.6 mmol/L (3.5-5.1); SODIUM 148 mmol/L (136-145)
[2018-09-17] MEDS: GUAIFENESIN/DEXTROMETHORPHAN LIQD 5 ML UDC NG SCH ×2 (05:19→14:00)
[2018-09-17] MEDS: NYSTATIN SUSPENSION 5 ML UDC PO SCH ×4 (05:19→18:52)
[2018-09-17] MEDS: PANTOPRAZOLE INJ 40 MG in SODIUM CHLORIDE 0.9% 50ML 50 ML IV SCH ×4 (05:22→20:37)
[2018-09-17 06:57] LABS: EOSINOPHILS % (MANUAL) 2 % (0-7); LYMPHOCYTES % (MANUAL) 13 % (19-48); MONOCYTES % (MANUAL) 5 % (3.4-9.0); MYELOCYTES % (MANUAL) 1 % (0-0); NEUTROPHILS % (MANUAL) 79 % (40-74); PLATELET ESTIMATE ADEQUATE; PLATELET MORPHOLOGY COMMENT NORMAL; RBC MORPHOLOGY COMMENT NORMAL
[2018-09-17] MEDS: ALBUTEROL/IPRATROPIUM 3 ML NEB NEB PRN ×3 (07:58→20:00)
[2018-09-17] MEDS: MIDODRINE 2.5 MG TAB PO SCH ×3 (08:00→15:28)
[2018-09-17] MEDS ORDERED: PANTOPRAZOLE 40 MG 10ML VIAL ONE (08:36)
[2018-09-17] MEDS: ASPIRIN 81 MG CHEW TAB PO SCH (09:00)
[2018-09-17] MEDS: (Mirabegron (Myrbetriq) 50 MG) PO SCH (09:00)
[2018-09-17] MEDS: BALSAM PERU/CASTOR OIL 60 GM OINT...G. TP SCH ×2 (09:00→18:52)
[2018-09-17] MEDS: CHLORTHALIDONE 25 MG TAB PO SCH (09:00)
[2018-09-17] MEDS: FUROSEMIDE INJ 10 MG/ML 4 ML VIAL IV SCH ×2 (09:00→20:38)
[2018-09-17] MEDS: MICAFUNGIN SODIUM 100 ML IV SCH (09:00)
[2018-09-17] MEDS: BENZONATATE 100 MG CAP PO SCH ×3 (09:00→20:37)
[2018-09-17] MEDS ORDERED: [UNRECOGNIZED DRUG - OTHER] IV SCH (09:00)
[2018-09-17] MEDS: LORATADINE 10 MG TAB PO SCH (09:00)
[2018-09-17] MEDS: MUPIROCIN 2% OINT 22 GM TUBE TOP SCH (09:00)
[2018-09-17] MEDS: CEFEPIME HCL 1 GM VIAL IV SCH (10:15)
--- NOTE | 2018-09-17 14:29 | Progress Note ---
DATE: September 17, 2018 SUBJECTIVE: Patient is doing much better today. Actually, he is much more alert and he seems to understand my conversation, but does not want to speak. Neurology was consulted and he is in a process of getting an EEG. OBJECTIVE VITAL SIGNS: Temperature is 97.9, pulse is 113, respiratory rate is 24, blood pressure is 105/83, pulse ox 92% on nasal cannula. LAB FINDINGS: Show a white count 15.9, hemoglobin 10.4, hematocrit is 33, platelets of 224. Chemistry, sodium 148, potassium is 3.3, chloride is 116, bicarb 23, anion gap of 12, BUN is 25, creatinine is 1, glucose is 125, calcium 8.2. His vitamin B12 is 1999. TSH is 1.1. H. pylori studies were found to be negative. C. diff toxin was negative. MICROBIOLOGY: None. PHYSICAL EXAMINATION GENERAL: Not in acute distress. Alert and oriented x1, but he is much more awake today. HEENT: Head normocephalic, atraumatic. Eyes; pupils are equal, round, and reactive to light bilaterally. Extraocular movements are intact bilaterally. Throat, no evidence of any erythema or exudates in the posterior pharynx. Has poor dentition. NECK: Supple with good range of motion. PULMONARY: Clear to auscultation bilaterally. No wheezing, no rales, no rhonchi, no crackles appreciated. CARDIOVASCULAR: Positive S1 and S2. No murmurs, rubs, or gallops appreciated. ABDOMEN: Soft, nondistended, nontender to palpation. Bowel sounds present. MUSCULOSKELETAL: Strength is 5/5 throughout. No evidence of any musculoskeletal deficit on examination. No weakness appreciated. NEUROLOGICAL: Unable to assess. He looks awake and alert, but does not speak. SKIN: Intact. Warm to touch. Good capillary refill. PSYCHIATRIC: Normal affect and mood. EXTREMITIES: No edema. Good range of motion throughout. IMPRESSION 1. Acute respiratory failure, now on nasal cannula. 2. Interstitial lung disease with underlying aspiration pneumonia. 3. Septic shock with bacteremia and aspiration pneumonia. 4. Acute kidney injury. 5. Hypernatremia. 6. Choledocholithiasis. 7. Acute gastrointestinal bleed. 8. Thrombocytopenia secondary to underlying sepsis. PLAN: At this time, we will continue with IV antibiotics as per GI and ID are following. There is no further workup needed. His renal function is stable. His blood pressure is much improved now. His D5W was increased due to the hypernatremia. Again, today he is alert on exam, much improved compared to yesterday, and the was present at bedside. The overall goal was to send him to a [facility] facility and he has improved compared to yesterday. Otherwise, we will continue same plan of care. Job#: [id number] LPA
[2018-09-17] MEDS: DEXTROSE 5% 1,000 ML IV SCH (15:10)
[2018-09-17] MEDS ORDERED: GUAIFENESIN 200 MG/10 ML UDC PO PRN (15:45)
--- NOTE | 2018-09-17 18:37 | Progress Note ---
DATE: September 17, 2018 PULMONARY MEDICINE PROGRESS NOTE SUBJECTIVE: Mr. Mota is seen and examined at bedside. He continues to be very weak. He is encephalopathic. He remains on TPN at this time. He is on additional IV fluid, D5W at 50 mL per hour. 92% oxygen saturation on 2 L per nasal cannula. 2.1 liters in, 0.[address] head done yesterday unremarkable for acute changes. REVIEW OF SYSTEMS: Cannot get as he is altered. OBJECTIVE VITAL SIGNS: Afebrile. Vital signs noted per electronic record. GENERAL: In no acute distress, but he looks in poor condition, weak in bed. HEENT: Normocephalic, atraumatic. NECK: Supple. Throat midline. LUNGS: Bilateral air entry, few crackles, few rhonchi. CARDIOVASCULAR: S1, S2. No murmurs, rubs, or gallops appreciated. ABDOMEN: Soft, nontender. EXTREMITIES: No clubbing or cyanosis. There is 1+ edema. INTEGUMENT: No rash. No purpura. LABS: BUN 45, creatinine 1.1, potassium 2.6. White count 16, platelets 274, hematocrit 33. Urinalysis was 6 to 10 white cells. IMPRESSION 1. Encephalopathy, multifactorial, toxic metabolic. 2. Acute respiratory failure, extubated. 3. Recurrent respiratory failure, chronic hypoxemia. 4. Radiographic usual interstitial pneumonia, idiopathic pulmonary fibrosis, diagnosis per primary vp project, Dr. Kimble. 5. Weakness. 6. Dysphagia. PLAN: Continue PPN for now. Furthermore IV fluid, dextrose should be continued. Consideration should be for PEG tube if they want aggressive care or else they should consider if they want more palliative measures, and they are discussing this already at this time. Follow up closely. Follow up clinically and decide if we need to expend antibiotics for any infections. We will follow along closely. Job#: [id number] VALERI
--- NOTE | 2018-09-17 19:38 | Electroencephalogram ---
DATE OF STUDY: September 17, 2018 REQUESTING PHYSICIAN: Dr. Roopa Burris. PATIENT HISTORY: This 83-year-old man with a history of decreased level of responsiveness is having an EEG for evaluation of epileptiform activity. The patient is not taking any medications, which might affect the EEG. TECHNIQUE: This is a routine, portable EEG, recorded digitally, using the International 10/20 Electrode Placement System, and done in the inpatient setting with the patient awake. The EEG is technically limited because of muscle and electrical artifact. DESCRIPTION: Well-organized, well-sustained, 6-7 Hz activity is best seen symmetrically over the posterior head regions. No focal or epileptiform activity is recorded. Sleep is not recorded. Photic stimulation does produce a driving response. Hyperventilation is not performed. INTERPRETATION: This electroencephalogram is abnormal with the patient awake due to diffuse slowing of background electrocortical activity compatible with mild generalized encephalopathy. No epileptiform discharges are seen. Clinical correlation is recommended. Job#: [id number] GRETTA ANDREA
[2018-09-17] MEDS ORDERED: CENTRAL TPN FORMULA 1 BAG IV SCH (20:00)
[2018-09-18] VITALS: BP 106/75
[2018-09-18] MEDS: PANTOPRAZOLE INJ 40 MG in SODIUM CHLORIDE 0.9% 50ML 50 ML IV SCH ×5 (01:20→20:30)
[2018-09-18] MEDS: ALBUTEROL/IPRATROPIUM 3 ML NEB NEB PRN ×5 (02:05→23:45)
[2018-09-18 04:00] VITALS: BP 116/68
[2018-09-18 05:22] LABS: ANION GAP 12.9 mmol/L (8-16); BLOOD UREA NITROGEN 35 mg/dL (7-26); BUN/CREATININE RATIO 50 (6-25); CARBON DIOXIDE 13 mmol/L (22-29); CHLORIDE 123 mmol/L (98-107); EST GLOMERULAR FILTRATION RATE > 60 ML/MIN (60-); GLUCOSE 90 mg/dL (74-118); SODIUM 146 mmol/L (136-145)
[2018-09-18 05:34] LABS: POTASSIUM 2.9 mmol/L (3.5-5.1)
[2018-09-18 05:35] LABS: CALCIUM 6.3 mg/dL (8.4-10.2)
[2018-09-18] MEDS ORDERED: POTASSIUM CHLORIDE 20MEQ/100ML 200 ML IV ONE ×2 (05:45→11:30)
[2018-09-18] MEDS ORDERED: CALCIUM GLUCONATE 10% INJ 9.3 MEQ in SODIUM CHLORIDE 0.9% 100 ML 100 ML IV ONE ×2 (05:45→08:00)
[2018-09-18] MEDS: NYSTATIN SUSPENSION 5 ML UDC PO SCH ×4 (06:00→16:00)
[2018-09-18] MEDS ORDERED: SODIUM CHLORIDE 0.9% 250ML 250 ML ONE (06:07)
[2018-09-18 07:48] VITALS: BP 84/66
[2018-09-18] MEDS: MIDODRINE 2.5 MG TAB PO SCH ×3 (08:00→14:36)
[2018-09-18] MEDS: (Mirabegron (Myrbetriq) 50 MG) PO SCH (08:15)
[2018-09-18] MEDS: MUPIROCIN 2% OINT 22 GM TUBE TOP SCH (08:16)
[2018-09-18] MEDS: BALSAM PERU/CASTOR OIL 60 GM OINT...G. TP SCH ×2 (08:16→16:00)
[2018-09-18] MEDS: ASPIRIN 81 MG CHEW TAB PO SCH (08:23)
[2018-09-18] MEDS: BENZONATATE 100 MG CAP PO SCH ×3 (08:23→21:00)
[2018-09-18] MEDS: CHLORTHALIDONE 25 MG TAB PO SCH (08:23)
[2018-09-18] MEDS: LORATADINE 10 MG TAB PO SCH (08:23)
[2018-09-18] MEDS: FUROSEMIDE INJ 10 MG/ML 4 ML VIAL IV SCH (08:42)
[2018-09-18] MEDS: MICAFUNGIN SODIUM 100 ML IV SCH (08:46)
[2018-09-18] MEDS: DEXTROSE 5% 1,000 ML IV SCH (08:52)
[2018-09-18 12:00] VITALS: BP 94/67
--- NOTE | 2018-09-18 14:36 | Progress Note ---
DATE: September 18, 2018 SUBJECTIVE: Patient is more alert today on exam, but very lethargic. He does not want to speak at all, but he does understand what I am saying. We are going to reevaluate tomorrow in terms of speech therapy and if he fails, he will definitely need a PEG tube in which the family has been told on several occasions. Patient is considered very high risk the fact that he has significant respiratory issues in which he may end up being intubated for significant period of time. Family understands that risk. VITAL SIGNS: Temperature is 98.3, pulse 96, respiratory rate is 20, blood pressure 94/67, pulse ox 92% on nasal cannula 4 liters. LABORATORY FINDINGS: CBC: None. Chemistry: Sodium 146, potassium 2.9, chloride 123, bicarb 13, anion gap of 12, BUN 35, creatinine is 0.7, calcium is 6.3. IMAGING: None. MICROBIOLOGY: None. PHYSICAL EXAMINATION GENERAL: Not in acute distress. He is alert on exam, but not oriented. Does not speak. HEENT: Head normocephalic, atraumatic. Eyes; pupils are equal, round, and reactive to light bilaterally. Extraocular movements are intact bilaterally. NECK: Supple with good range of motion. THROAT: No evidence of any erythema or exudates in the posterior pharynx. Has poor dentition. PULMONARY: Clear to auscultation bilaterally. No wheezing, no rales, no rhonchi, no crackles appreciated. CARDIOVASCULAR: Positive S1, S2. No murmurs, rubs, or gallops appreciated. ABDOMEN: Soft, nondistended, nontender to palpation. Bowel sounds present. MUSCULOSKELETAL: Unable to assess. Patient is not cooperative. NEUROLOGICAL: Unable to assess. Patient is not cooperative. SKIN: Intact. Warm to touch. Good capillary refill. PSYCHIATRIC: At baseline. EXTREMITIES: No edema. IMPRESSION 1. Acute respiratory failure, now on nasal cannula. 2. Interstitial lung disease with underlying aspiration pneumonia. 3. Septic shock with bacteremia with aspiration pneumonia. 4. Acute kidney injury. 5. Hypernatremia. 6. Choledocholithiasis. 7. Acute gastrointestinal bleed. 8. Thrombocytopenia secondary to underlying sepsis. 9. Hypokalemia and hypocalcemia. PLAN: At this time, I am going to repeat stat chemistry now. Put on IV Lasix 40 mg IV x1. Put on DuoNebs. Get a chest x-ray. Get a.m. labs. Sodium is 146, so much improved in terms of hypernatremia. We are going to get speech therapy to reevaluate his swallowing tomorrow and if he fails, he will definitely need a PEG tube. I discussed this with the family at bedside as well. Continue same plan of care. Dr. Mata will be available back tomorrow. Job#: [id number] KEENAN
--- NOTE | 2018-09-18 15:01 | Diagnostic Imaging Report ---
EXAMINATION: CHEST SINGLE (PORTABLE) INDICATION: ^sob ^[id number] ^[id number] COMPARISON: Chest radiograph 09/15/2018. CT abdomen 09/04/[address] chest 08/25/2018 FINDINGS: AP view TUBES and LINES: None. LUNGS: Low lung volumes. Unchanged diffuse bilateral pulmonary fibrosis. Decreased groundglass opacities when compared to 09/11/2018 and then 2017. No new consolidations. PLEURA: No pleural effusion or pneumothorax. HEART AND MEDIASTINUM: Stable enlargement of the cardiac silhouette. Tortuous thoracic aorta. Atherosclerotic calcifications of the aortic arch. BONES AND SOFT TISSUES: No acute osseous lesion. Soft tissues are unremarkable. UPPER ABDOMEN: No free air under the diaphragm. IMPRESSION: Bilateral pulmonary fibrosis with improvement in groundglass opacity throughout the lungs when compared to prior exams. Signed by: Dr. Marnie Inman M.D. on 09/18/2018 2:58 PM
[2018-09-18 15:34] VITALS: BP 107/70
[2018-09-18 16:00] LABS: BLOOD UREA NITROGEN 43 mg/dL (7-26); BUN/CREATININE RATIO 42 (6-25); CALCIUM 9.1 mg/dL (8.4-10.2); CARBON DIOXIDE 17 mmol/L (22-29); CHLORIDE 112 mmol/L (98-107); CREATININE, SERUM 1.03 mg/dL (0.72-1.25); EST GLOMERULAR FILTRATION RATE > 60 ML/MIN (60-); GLUCOSE 105 mg/dL (74-118); MAGNESIUM 2.3 MG/DL (1.3-2.1); SODIUM 144 mmol/L (136-145)
[2018-09-18 16:16] LABS: BASOPHILS # (AUTO) 0.2 (0.0-0.1); BASOPHILS % 1.1 % (0.0-1.0); EOSINOPHILS # (AUTO) 0.5 (0.0-0.4); EOSINOPHILS % 3.7 % (0.0-6.0); HEMATOCRIT 36.1 % (38.2-49.6); HEMOGLOBIN 11.4 g/dL (14.0-18.0); LYMPHOCYTES # (AUTO) 1.8 (1.0-3.2); LYMPHOCYTES % 12.7 % (18.0-39.1); MEAN CORPUSCULAR HEMOGLOBIN 30.9 pg (28-32); MEAN CORPUSCULAR HGB CONC 31.6 g/dL (31-35); MEAN CORPUSCULAR VOLUME 97.8 fL (81-99); MONOCYTES # (AUTO) 1.3 (0.2-0.8); NEUTROPHILS # (AUTO) 10.1 (2.1-6.9); NEUTROPHILS % 71.2 % (38.7-80.0); PLATELET COUNT 261 x10e3/uL (140-360); RED BLOOD COUNT 3.69 x10e6/uL (4.3-5.7); RED CELL DISTRIBUTION WIDTH 16.5 % (11.7-14.4)
--- NOTE | 2018-09-18 17:46 | Progress Note ---
DATE: September 18, 2018 PULMONARY MEDICINE PROGRESS NOTE COVERING FOR: Dr. Kimble. SUBJECTIVE: Mr. Mota was seen and examined at bedside. His chest x-ray was showing slight improvement in ground-glass opacities, although there is a significant amount of pulmonary fibrosis. D5W at 50 mL per hour. TPN at 70 mL per hour. REVIEW OF SYSTEMS: Cannot get as he is altered. OBJECTIVE VITAL SIGNS: Afebrile. Vital signs noted per electronic record. GENERAL: He is alerted, low energy, lying in bed. HEENT: Normocephalic, atraumatic. NECK: Supple. Throat midline. LUNGS: Bilateral air entry, few rhonchi, few crackles. CARDIOVASCULAR: S1, S2. No murmurs, rubs, or gallops. ABDOMEN: Soft, nontender. EXTREMITIES: No clubbing or cyanosis. There is no edema. INTEGUMENT: No rash. No purpura. LABS: Sodium 146, potassium 2.9, bicarbonate 13, BUN 35, creatine 0.7. White count 16, hematocrit 33, and platelets 224. IMPRESSION 1. Dysphagia, on total parenteral nutrition. 2. Non-anion gap metabolic acidosis, evolving, partially due to total parenteral nutrition. 3. Hypokalemia. 4. Encephalopathy. 5. Usual interstitial pneumonia, likely idiopathic pulmonary fibrosis. 6. Weakness. PLAN: Continue to follow up with increased airway treatments. These were ordered and we hope this will improve his airways hygiene. Continue to mobilize the patient and give restorative care. Enhance expectoration secretions. Avoid meds that may contribute to encephalopathy. Dysphagia and other care per others. Blood work to be repeated tomorrow and consideration to modify TPN if needed noting that the order for TPN has been modified. Job#: [id number] GRETTA
[2018-09-18 20:00] VITALS: BP 115/76
[2018-09-18] MEDS ORDERED: CENTRAL TPN FORMULA 1 BAG IV SCH (20:00)
[2018-09-19] VITALS (10 sets, daily range): BP systolic 77–118; BP diastolic 61–91
[2018-09-19] MEDS: PANTOPRAZOLE INJ 40 MG in SODIUM CHLORIDE 0.9% 50ML 50 ML IV SCH ×5 (01:28→21:16)
[2018-09-19 05:09] LABS: BASOPHILS # (AUTO) 0.1 (0.0-0.1); EOSINOPHILS # (AUTO) 0.5 (0.0-0.4); EOSINOPHILS % 3.8 % (0.0-6.0); HEMATOCRIT 32.3 % (38.2-49.6); HEMOGLOBIN 10.3 g/dL (14.0-18.0); LYMPHOCYTES # (AUTO) 2.1 (1.0-3.2); LYMPHOCYTES % 14.9 % (18.0-39.1); MEAN CORPUSCULAR HEMOGLOBIN 30.7 pg (28-32); MEAN CORPUSCULAR HGB CONC 31.9 g/dL (31-35); MEAN CORPUSCULAR VOLUME 96.1 fL (81-99); MONOCYTES # (AUTO) 1.4 (0.2-0.8); NEUTROPHILS # (AUTO) 9.3 (2.1-6.9); NEUTROPHILS % 67.6 % (38.7-80.0); PLATELET COUNT 259 x10e3/uL (140-360); RED BLOOD COUNT 3.36 x10e6/uL (4.3-5.7); RED CELL DISTRIBUTION WIDTH 16.2 % (11.7-14.4)
[2018-09-19] MEDS: DEXTROSE 5% 1,000 ML IV SCH ×2 (05:21→17:30)
[2018-09-19] MEDS: NYSTATIN SUSPENSION 5 ML UDC PO SCH ×3 (05:30→11:32)
[2018-09-19 05:32] LABS: ALANINE AMINOTRANSFERASE 19 IU/L (0-55); ALBUMIN 1.7 g/dL (3.5-5.0); ALBUMIN/GLOBULIN RATIO 0.5 (0.8-2.0); ALKALINE PHOSPHATASE 102 IU/L (40-150); ANION GAP 15.6 mmol/L (8-16); BLOOD UREA NITROGEN 44 mg/dL (7-26); BUN/CREATININE RATIO 44 (6-25); CALCIUM 8.4 mg/dL (8.4-10.2); CARBON DIOXIDE 18 mmol/L (22-29); CHLORIDE 112 mmol/L (98-107); CREATININE, SERUM 0.99 mg/dL (0.72-1.25); EST GLOMERULAR FILTRATION RATE > 60 ML/MIN (60-); GLUCOSE 109 mg/dL (74-118); POTASSIUM 3.6 mmol/L (3.5-5.1); SODIUM 142 mmol/L (136-145)
[2018-09-19 05:52] LABS: MAGNESIUM 2.1 MG/DL (1.3-2.1); PHOSPHORUS 4.2 MG/DL (2.3-4.7)
[2018-09-19] MEDS: ALBUTEROL/IPRATROPIUM 3 ML NEB NEB PRN ×3 (06:45→20:45)
[2018-09-19] MEDS: MIDODRINE 2.5 MG TAB PO SCH ×3 (08:00→15:59)
[2018-09-19] MEDS: BALSAM PERU/CASTOR OIL 60 GM OINT...G. TP SCH ×2 (08:20→16:22)
[2018-09-19] MEDS: MUPIROCIN 2% OINT 22 GM TUBE TOP SCH (08:20)
[2018-09-19] MEDS: MICAFUNGIN SODIUM 100 ML IV SCH (08:30)
[2018-09-19] MEDS: BENZONATATE 100 MG CAP PO SCH ×3 (09:00→20:40)
[2018-09-19] MEDS: LORATADINE 10 MG TAB PO SCH (09:00)
[2018-09-19] MEDS: ASPIRIN 81 MG CHEW TAB PO SCH (09:00)
[2018-09-19] MEDS: (Mirabegron (Myrbetriq) 50 MG) PO SCH (09:00)
[2018-09-19] MEDS ORDERED: CENTRAL TPN FORMULA 1 BAG IV SCH ×2 (13:09→20:00)
[2018-09-19] MEDS ORDERED: LORAZEPAM INJ 2 MG/ML VIAL IV PRN (16:45)
[2018-09-20] MEDS: PANTOPRAZOLE INJ 40 MG in SODIUM CHLORIDE 0.9% 50ML 50 ML IV SCH ×4 (02:39→18:00)
[2018-09-20 04:41] VITALS: BP 118/78
[2018-09-20] MEDS: ALBUTEROL/IPRATROPIUM 3 ML NEB NEB PRN (07:25)
[2018-09-20 07:52] VITALS: BP 99/63
[2018-09-20] MEDS: MIDODRINE 2.5 MG TAB PO SCH ×3 (08:00→16:00)
[2018-09-20 08:22] LABS: ANION GAP 11.5 mmol/L (8-16); BLOOD UREA NITROGEN 36 mg/dL (7-26); BUN/CREATININE RATIO 43 (6-25); CALCIUM 8.3 mg/dL (8.4-10.2); CARBON DIOXIDE 18 mmol/L (22-29); CHLORIDE 109 mmol/L (98-107); CREATININE, SERUM 0.84 mg/dL (0.72-1.25); EST GLOMERULAR FILTRATION RATE > 60 ML/MIN (60-); GLUCOSE 103 mg/dL (74-118); MAGNESIUM 2.1 MG/DL (1.3-2.1); PHOSPHORUS 3.6 MG/DL (2.3-4.7); POTASSIUM 3.5 mmol/L (3.5-5.1); SODIUM 135 mmol/L (136-145)
[2018-09-20] MEDS: ASPIRIN 81 MG CHEW TAB PO SCH (08:35)
[2018-09-20] MEDS: (Mirabegron (Myrbetriq) 50 MG) PO SCH (08:35)
[2018-09-20] MEDS: LORATADINE 10 MG TAB PO SCH (08:35)
[2018-09-20] MEDS: MICAFUNGIN SODIUM 100 ML IV SCH (08:35)
[2018-09-20] MEDS: BENZONATATE 100 MG CAP PO SCH ×2 (08:36→15:00)
[2018-09-20] MEDS: BALSAM PERU/CASTOR OIL 60 GM OINT...G. TP SCH ×2 (08:36→16:57)
[2018-09-20] MEDS: ALBUTEROL/IPRATROPIUM 3 ML NEB NEB SCH ×3 (11:20→19:00)
[2018-09-20 11:51] VITALS: BP 116/68
[2018-09-20] MEDS ORDERED: CENTRAL TPN FORMULA 1 BAG IV SCH (12:51)
[2018-09-20 16:03] VITALS: BP 127/68
[2018-09-20 19:00] VITALS: BP 88/53
--- NOTE | 2018-09-22 13:11 | Diagnostic Imaging Report ---
Fluoroscopically guided nasogastric tube placement. Agricultural Research Engineer: Adamaris Thompson MD Sedation/Medications: HurriCaine topical anesthetic spray intranasal RADIATION DOSE: Fluoroscopy time: 1.3 minutes Dose area product: 222.9 cGycm2 TECHNIQUE/FINDINGS: Initial consult was placed for percutaneous gastrostomy placement. Informed consent was obtained from the patient's healthcare proxy. However, the floor team was unable to place NG tube prior to the procedure, and the patient did not receive oral contrast. Local sedation was administered intranasally. Subsequently, with fluoroscopic guidance, a 5 Fr Kumpe catheter was advanced through the nose into the esophagus and into the stomach. The catheter was secured in place with tape. IMPRESSION: Fluoroscopically guided NG tube placement as above. Signed by: Dr. Adamaris Thompson MD on 09/20/2018 12:04 PM
--- NOTE | 2018-09-28 19:19 | Operative Report ---
DATE OF PROCEDURE: August 30, 2018 PREOPERATIVE DIAGNOSIS: Acute cholecystitis. POSTOPERATIVE DIAGNOSIS: Acute cholecystitis. OPERATIVE PROCEDURE: Laparoscopic cholecystectomy. ANESTHESIA: General endotracheal. INDICATIONS: An 83-year-old male with history of abdominal pain with ultrasound showing gallstones with gallbladder distention. The patient is consented for laparoscopic cholecystectomy. All attendant risks discussed. PROCEDURE FINDINGS: Acute cholecystitis. DESCRIPTION OF PROCEDURE: The patient was brought to the OR, intubated. The abdomen was prepped with alcohol and draped in a sterile fashion. An infraumbilical incision was made and a 10 mm port inserted. Insufflation begun. Under direct vision, other ports were placed in midepigastric and right upper quadrant. Laparoscopic examination revealed a gallbladder acutely inflamed with partial gangrenous changes on the fundus with omental coverage or adhesions to the gallbladder, which was dissected off bluntly. Fundus of the gallbladder was then grasped and retracted in cephalad direction with blunt dissection. We proceeded to dissect out the neck of the gallbladder, isolating the cystic artery with triple clips and dividing it. The cystic duct was also identified by following the neck of the gallbladder down toward the common bile duct, and the cystic duct was clearly visualized and controlled with triple clips and divided between clips. The gallbladder was detached from the liver with cautery and blunt dissection. It was placed in an Endopouch and retrieved out of the peritoneal cavity. The operative field was then irrigated, hemostasis achieved, all ports removed under direct vision. A 10-[place] Hans drain was placed in the Haley pouch and taken out the right upper quadrant port site. All other ports were removed under direct vision. Fascial closure with 0 Vicryl. Skin was then closed with subcuticular stitch. The patient was then extubated and transported to the recovery room in guarded condition. Estimated blood loss 10 mL. Job#: [id number] EV
--- NOTE | 2018-11-15 15:03 | Operative Report ---
DATE OF PROCEDURE: September 14, 2018 REFERRING PHYSICIAN: Kayla Rodarte MD PROCEDURE PERFORMED: Esophagogastroduodenoscopy with possible percutaneous endoscopic gastrostomy tube insertion. INDICATIONS FOR PROCEDURE: Abnormal modified barium swallow. MEDICATION: Patient was done under MAC. Please see anesthesiologist's note. PROCEDURE: With the patient in the supine position, the flexible fiberoptic Olympus gastroscope was introduced into the esophagus under direct visualization without any difficulty. There was some patchy erythema noted in the distal esophagus. The scope was then advanced with ease into the stomach, traversing a small hiatal hernia. Some gastric ulcers were noted in the distal body and proximal antrum without active bleeding or stigmata of recent hemorrhage. Pylorus was of normal contour and shape. It was intubated with ease, and the scope was advanced all the way to the 2nd portion of the duodenum. The scope was then withdrawn slowly. Mucosa overlying the proximal 2nd portion and the duodenal bulb appeared to be within normal limits. The scope was then withdrawn back into the stomach and retroflexed. The mucosa overlying the fundus and the cardia appeared to be within normal limits. The scope was then straightened out, and no safe entry point could be delineated by transabdominal illumination and external digital palpation. The scope was subsequently withdrawn. Patient tolerated the procedure well. IMPRESSION 1. Distal esophagitis, mild. 2. Small sliding hiatal hernia. 3. Gastritis. 4. Gastric ulcers without active bleeding or stigmata of recent hemorrhage. 5. No safe entry point could be delineated for percutaneous endoscopic gastrostomy tube insertion. Will ask interventional radiology to attempt gastrostomy tube insertion under fluoroscopic guidance. Job#: [id number] cc:KAYLA RODARTE MD
== END 2018-09-20 19:51 | DRG 853 ==
LOC: ER 17:45 → ERHOLD 19:37 → IMCU 21:32 → ICU 09-04 01:00 → IMCU 09-14 03:34
PROVIDERS: ADMIT Internal Medicine; ATTEND Internal Medicine
PROC: 0F798DZ Dilation of Common Bile Duct with Intraluminal Device, Via Natural or Artificial Opening Endoscopic (ICD-10-PCS; 2018-08-27)
PROC: 0FC98ZZ Extirpation of Matter from Common Bile Duct, Via Natural or Artificial Opening Endoscopic (ICD-10-PCS; principal; 2018-08-27 17:00)
PROC: 0FT44ZZ Resection of Gallbladder, Percutaneous Endoscopic Approach (ICD-10-PCS; 2018-08-30)
DX: A41.50 Gram-negative sepsis, unspecified (principal); J15.9 Unspecified bacterial pneumonia; R65.21 Severe sepsis with septic shock; J96.21 Acute and chronic respiratory failure with hypoxia; G92 Toxic encephalopathy; N39.0 Urinary tract infection, site not specified; J96.11 Chronic respiratory failure with hypoxia; K80.00 Calculus of gallbladder with acute cholecystitis without obstruction; J84.9 Interstitial pulmonary disease, unspecified; N17.9 Acute kidney failure, unspecified; E87.2 Acidosis; K62.5 Hemorrhage of anus and rectum; Z82.49 Family history of ischemic heart disease and other diseases of the circulatory system; S51.812A Laceration without foreign body of left forearm, initial encounter; S81.812A Laceration without foreign body, left lower leg, initial encounter; S81.811A Laceration without foreign body, right lower leg, initial encounter; M54.9 Dorsalgia, unspecified; M19.90 Unspecified osteoarthritis, unspecified site; K21.9 Gastro-esophageal reflux disease without esophagitis; Z96.653 Presence of artificial knee joint, bilateral; D69.6 Thrombocytopenia, unspecified; R53.81 Other malaise; D75.1 Secondary polycythemia; E87.5 Hyperkalemia; E83.39 Other disorders of phosphorus metabolism; L89.151 Pressure ulcer of sacral region, stage 1; L89.521 Pressure ulcer of left ankle, stage 1
CPT/HCPCS: 31720; 36415; 36569; 36600; 43235; 43260; 43752; 51700; 70450; 70551; 71045; 71250; 74176; 74183; 74230; 74328; 74470; 76705; 80048; 80053; 80076; 80202; 81001; 82140; 82150; 82330; 82550; 82553; 82570; 82607; 82805; 82948; 83605; 83690; 83735; 83880; 84100; 84132; 84300; 84425; 84436; 84443; 84479; 84484; 85007; 85014; 85018; 85025; 85027; 85610; 85730; 86301; 86592; 86677; 86850; 86900; 86920; 87040; 87070; 87071; 87086; 87186; 87205; 87493; 88304; 93005; 93306; 93970; 94002; 94003; 94640; 94660; 94667; 94668; 95816; 96361; 96366; 97139; 99285; C2625; J0171; J0330; J0360; J0610; J0692; J1450; J1650; J1720; J1940; J2001; J2020; J2060; J2150; J2185; J2248; J2250; J2270; J2353; J2354; J2405; J2765; J3370; J3430; J3475; J3480; J7030; J7040; J7050; J7070; P9016; P9017; P9047; Q9963